=== PATIENT | male | born 1940 | race Caucasian/White ===

== ENCOUNTER 2018-10-22 14:21 | Emergency (ER) | payer MEDICARE, BC, SELFPAY ==
[2018-10-22] VITALS (48 sets, daily range): BP systolic 126–173; BP diastolic 51–112; PULSE 59–75; RESP 12–25; TEMP 36.7; O2SAT 91–97
--- NOTE | 2018-10-22 14:34 | DI.CT_ITS ---
SYMPTOMS/DIAGNOSIS: LEFT-SIDED FACIAL DROOP, ? CEREBROVASCULAR ACCIDENT CRANIAL CT: Noncontrast cranial CT was performed. There is a right cerebral mass involving the frontoparietal region with marked compression of the right lateral ventricle and midline shift to the left by approximately 1 cm. There appears to be significant edema surrounding a more central area of abnormal attenuation. Findings as described may represent primary or metastatic tumor; abscess not excluded. Infarct unlikely with this degree of mass effect. Orbital and temporal bone structures appear intact. No calvarial abnormality seen. Visualized paranasal sinuses and mastoid air cells are clear. 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 Additional evaluation with MRI recommended.
--- NOTE | 2018-10-22 14:34 | DI.RAD_ITS ---
SYMPTOMS/DIAGNOSIS: LEFT-SIDED FACIAL DROOP, ? CEREBROVASCULAR ACCIDENT PA AND LATERAL CHEST: The heart is not enlarged. Lungs are predominantly clear. There is a question of mediastinal contour abnormality superiorly on the right, which does not appear to have been present on previous chest film of 05/18/2010. This may represent vascular prominence, but the possibility of a mass should be raised with the patient's smoking history. Additional evaluation with chest CT recommended.
--- NOTE | 2018-10-22 14:37 | ED.GENADUL_ITS ---
Discharge Plan Disposition Patient Disposition: [facility] Condition: Stable Discharge Details Chief Complaint: CVA/TIA Clinical Impression: Brain mass, Altered mental status, Abnormal coordination Primary Care Provider: Riaz Penaloza ED Provider: Wong Frederick Home Meds and New Rx's Prescriptions: No Action cilostazol 100 mg tablet 100 mg PO BID RF: 0 nicotine (polacrilex) 4 mg gum 4 mg BC Q2H RF: 0 omeprazole 40 mg capsule,delayed release(DR/EC) 40 mg PO DAILY PRN RF: 0 aspirin 81 mg tablet,chewable 81 mg PO DAILY RF: 0 Metamucil [place] powder 1 tbs PO DAILY PRN RF: 0 lisinopril-hydrochlorothiazide 10-12.5 mg tablet 1 tab PO DAILY Qty: 90 RF: 3 Discharge Data Discharge Date/Time-TO BE ENTERED AT DEPARTURE: 10/22/18 19:20 Discharge Physician: Kathleen Zamorano Medical Decision Making <Kathleen Zamorano DO - Last Filed: 10/23/18 17:40> 78-year-old male with history of hypertension and peripheral arterial disease who presents with difficulty eating, slurred speech, difficulty with coordination and standing, and fatigue over the past 2 weeks, worse over the p ast few days. Family noticed a left facial droop since patient choked on gum 2 hours ago. Blood pressure mildly hypertensive. Oxygen saturation 94% on room air. Patient is noted to have a left facial droop and left arm pronator drift. No signs of airway compromise. Differential diagnosis includes acute CVA, mass, CA, electrolyte abnormality, infection. Will send for stat CT head, check screening labs, chest x-ray EKG notes a rate of 71 and sinus with no acute ST findings. 1455 --discussed with radiology -patient has a large right-sided brain mass which appears more likely consistent with a metastatic lesion rather than a primary tumor. Chest x-ray notes a questionable right apex prominence. As patient is a smoker, will send for CT chest to rule out lung CA once labs available. Also has a history of a skin cancer, but patient and family are unsure of the diagnosis of whether this is melanoma. Will call [facility] for transfer. 1550 --labs reviewed and unremarkable. 1630 --still awaiting callback from [facility]. Multiple calls placed. They are awaiting the images being re-sent and will review them and call back. Case endorsed to Dr. Frederick to f/u with [facility]. Medical Records Medical records reviewed: Yes I reviewed the patient's medical records. Imaging Data Radiologic Study: Radiologist's impression: CRANIAL CT: Noncontrast cranial CT was performed. There is a right cerebral mass involving the frontoparietal region with marked compression of the right lateral ventricle and midline shift to the left by approximately 1 cm. There appears to be significant edema surrounding a more central area of abnormal attenuation. Findings as described may represent primary or metastatic tumor; abscess not excluded. Infarct unlikely with this degree of mass effect. Orbital and temporal bone structures appear intact. No calvarial abnormality seen. Visualized paranasal sinuses and mastoid air cells are clear. 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 Additional evaluation with MRI recommended. Radiologic Study #2: Radiologist's impression: PA AND LATERAL CHEST: The heart is not enlarged. Lungs are predominantly clear. There is a question of mediastinal contour abnormality superiorly on the right, which does not appear to have been present on previous chest film of 05/18/2010. This may represent vascular prominence, but the possibility of a mass should be raised with the patient's smoking history. Additional evaluation with chest CT recommended. Lab Data Lab results reviewed: Yes I reviewed the patient's lab results. Laboratory Tests Range/Units 10/22/18 10/22/18 10/22/18 15:00 15:00 15:00 WBC (4.4-10.8) k/cumm 7.91 RBC (4.50-6.00) m/cumm 4.69 Hgb (13.5-17.5) g/dL 15.3 Hct (40.0-50.0) % 44.1 MCV (80-95) fL 94.0 MCH (27.0-33.0) pg 32.6 MCHC (32.0-36.0) g/dL 34.7 RDW (11.8-14.1) % 12.9 Plt Count (130-400) x1000/uL 237 MPV (8.0-11.0) fL 8.8 Immature Gran % 0.3 Neutrophils % 73.5 Lymphocytes % 17.6 Monocytes % 6.8 Eosinophils % 1.3 Basophils % 0.5 Absolute Neutrophils (1.2-6.7) k/cumm 5.82 Absolute Lymphocytes (1.2-3.4) k/cumm 1.39 Absolute Monocytes (0.11-0.7) k/cumm 0.54 Absolute Eosinophils (0.0-0.7) k/cumm 0.10 Absolute Basophils (0.0-0.2) k/cumm 0.04 PT (9.3-11.0) sec 9.4 INR (0.9-1.1) 0.9 APTT (21.0-31.4) sec 22.5 Sodium (136-145) mmol/L 139 Potassium (3.5-5.1) mmol/L 3.9 Chloride (98-107) mmol/L 105 Carbon Dioxide (21.0-32.0) mmol/L 24.1 Anion Gap (3-11) mmol/L 9.9 BUN (7-18) mg/dL 17 Creatinine (0.70-1.30) mg/dL 0.72 Estimated GFR/1.73 m2 (mL/min/1.73m2) >= 60.00 Glucose (70-100) mg/dL 88 Calcium (8.5-10.1) mg/dL 8.5 Magnesium (1.8-2.4) mg/dL 2.0 Total Bilirubin (0.2-1.0) mg/dL 0.5 AST (15-37) U/L 10 L ALT (12-78) U/L 20 Alkaline Phosphatase (46-116) U/L 87 Troponin I (0.00-0.06) ng/mL < 0.02 Total Protein (6.4-8.2) g/dL 6.5 Albumin (3.4-5.0) g/dL 3.4 ECG Data Attestation: I personally reviewed and interpreted this ECG (s) as follows: Interpretation: rate of 71, sinus, no acute ST elevation or depression, QTc 406. QRS 93. <Wong Frederick DO - Last Filed: 10/22/18 18:19> 6:17 PM The case has been signed out to me by my colleague Dr. Zamorano pending callback from [facility]. We have received call back, I have discussed the case with neurology Dr. Desai, and neurosurgery Dr. Amaro, they agree with our current plan of having given Decadron, they do not recommend any antiepileptics at this time. They also recommend transfer to [facility] for further evaluation and biopsy. The patient continues to remain hemodynamically stable here in the ED. He shows no signs of significant airway compromise. Patient will be transferred via [facility] to [facility]. I have extensively reviewed the treatment plan with the patient. I have addressed all patient concerns at this time. I have also discussed the plan with the admitting physician and they agree with the current assessment and plan and have agreed to assume responsibility for the patient. All parties demonstrate verbal understanding and agreement with our assessment and plan at this time. Of note CT chest has returned and is negative for any acute process or malignancy. At time of transfer the patient was reassessed and continued to demonstrate current medical stability. No signs of acute respiratory distress requiring intubation, hemodynamic instability requiring pressor support, or rapidly declining mental status. The patient is stable for transport. Patient Name: DELMAR ZAMORA AUnit #: [id number]: ER Ordering Provider: : REG ER Primary Care Provider: Riaz Penaloza Date of Exam: 10/22/18Sex: M : 1Age: 78 Exam(s) EXAM: CT Chest With Contrast EXAM DATE/TIME: 10/22/2018 3:55 PM CLINICAL HISTORY: 78 years old, male; Signs and symptoms; Other: Possible brain mets, assess for lung cancer TECHNIQUE: Imaging protocol: Axial computed tomography images of the chest with intravenous contrast. Coronal and sagittal reformatted images were created and reviewed. Radiation optimization: All CT scans at this facility use at least one of these dose optimization techniques: automated exposure control; mA and/or kV adjustment per patient size (includes targeted exams where dose is matched to clinical indication); or iterative reconstruction. Contrast material: OMNIPAQUE 350; Contrast volume: 100 ml; Contrast route: IV; COMPARISON: CTA THORAX 05/16/2017 9:02 AM FINDINGS: Lungs: There is mild scarring at the dependent lung bases. Pleural space: Normal. No pneumothorax. No pleural effusion. Heart: Normal. No cardiomegaly. No pericardial effusion. Aorta: There is moderate atherosclerosis of the thoracic aorta. Lymph nodes: Unremarkable. No enlarged lymph nodes. Bones/joints: There is moderate spondylosis of the mid and lower thoracic spine. Soft tissues: Unremarkable. IMPRESSION: Chronic changes with no evidence of a lung malignancy. Dictated and Authenticated by: John Paul Hawley MD. Ordering:AUGIE Wang MD HPI <Kathleen Zamorano, DO - Last Filed: 10/23/18 17:40> General Mode of arrival: ambulatory . Date/Time Provider Initiated Documentation: 10/22/18 14:22 . Limitations to Documentation: no limitations . Information obtained by: patient . HPI Narrative: Patient is a 78-year-old male with history of hypertension and PAD who presents to the ED w/ a c/o difficulty with standing, speech, eating and not acting like himself for the past few weeks, worse over the past week. states 2 hours ago patient choked on a piece of Nicorette gum and appears all the symptoms are now worse since then and now has a left-sided facial droop. states that patient's speech has been slurred for a few weeks, but this has been worse over the past 2 days and that food falls out of his mouth when he eats. She states he has been more disoriented over the past 3 days. She denies any known fever. She states he has been significantly fatigued for weeks but has not complained of any headache or chest pain. Denies any recent hospital admission. Related Data Home Medications Medication Instructions Recorded Confirmed aspirin 81 mg chewable tablet 81 mg PO DAILY 02/23/18 10/22/18 cilostazol 100 mg tablet 100 mg PO BID 02/23/18 10/22/18 nicotine (polacrilex) 4 mg gum 4 mg BC Q2H 02/23/18 10/22/18 omeprazole 40 mg capsule,delayed 40 mg PO DAILY PRN cap 02/23/18 10/22/18 release psyllium seed (sugar) oral powder 1 tbs PO DAILY PRN gm 02/23/18 05/23/18 lisinopril 10 1 tab PO DAILY #90 tab 09/10/18 10/22/18 mg-hydrochlorothiazide 12.5 mg tablet Previous Rx's Medication Instructions Recorded lisinopril 10 1 tab PO DAILY #90 tab 09/10/18 mg-hydrochlorothiazide 12.5 mg tablet Allergies Allergy/AdvReac Type Severity Reaction Status Date / Time venom-honey bee Allergy Severe Swelling Unverified 05/23/18 11:24 [bee venom (honey bee)] Penicillins Allergy Unverified 05/23/18 11:24 General Stated Complaint: CVA/TIA DEMI: 2 Review of Systems <Kathleen Zamorano DO - Last Filed: 10/23/18 17:40> Review of Systems All systems reviewed & are unremarkable except as noted in HPI and below Constitutional Reports as per HPI, Denies chills, Reports fatigue, Denies fever(s) and Reports lethargy Eyes Denies blurry vision ENT Denies dizziness, Denies sore throat and Denies throat swelling Cardiovascular Denies chest pain and Denies dyspnea Respiratory Denies cough and Denies dyspnea Gastrointestinal Denies abdominal pain, Denies diarrhea and Denies vomiting Genitourinary Denies hematuria and Denies dysuria Musculoskeletal Denies back pain and Denies numbness Integumentary/Breasts Denies lesions and Denies rash Neurologic Reports abnormal speech, Denies dizziness, Reports lack of coordination, Denies focal weakness and Denies numbness Endocrine Reports fatigue Allergic/Immunologic Denies throat swelling PFSH <Kathleen Zamorano DO - Last Filed: 10/23/18 17:40> Medical History Peripheral arterial occlusive disease (Acute) HTN (hypertension) (Chronic) Surgical History H/O vasectomy (Acute) History of surgical removal of pilonidal cyst (Acute) S/P skin cancer resection (Acute) Colonoscopy - IV Sedation Family History Mother No problems noted. Father No problems noted. Sister No problems noted. Brother No problems noted. Brother No problems noted. Brother No problems noted. Son No problems noted. Son No problems noted. Son No problems noted. Social History Smoking/Tobacco Use Status: Current every day Tobacco Type: cigarettes Second Hand Exposure: Yes Alcohol Intake: current Alcohol Intake frequency: holidays/special occasions only Alcohol type: hard liquor Drug use: Never Substance use type: does not use Details: Pt is not only smoking a lot of cigeretts but is chewing nicodine gum. current occupation: [employer] Pets and animals: Yes Pets and animals: cat(s) Frequency: does not exercise Macrina/Anabaptism: Adventist Special macrina needs: No Do you feel safe at home: Yes Do you feel safe in your relationship?: Yes Exam <Kathleen Zamorano DO - Last Filed: 10/23/18 17:40> Const General: cooperative and no acute distress HENAZ Head: normal to inspection Face and sinus: normal facial exam Eyes General: appearance normal, both eyes and all related structures Pupils: PERRL EOM: EOM intact bilaterally Neck Neck: normal visual inspection and No submandibular swelling Lymphatic: no lymphadenopathy noted Chest Chest: normal inspection of the chest and no tenderness Resp Effort & Inspection: normal respiratory effort and able to speak in complete sentences Auscultation: clear to auscultation bilaterally Cardio Rate: regular rate Rhythm: regular rhythm GI Inspection: normal to inspection Palpation: soft, not firm, not rigid and nontender Auscultation: normal bowel sounds Skin General skin exam: no rashes or lesions noted Neuro General: alert, awake and oriented x3 Cranial Nerves: other (L facial droop) Cognition: normal cognition Speech: other (stuttering speech) Motor: pronator drift pronator drift of left upper extremity and other (otherwise MS 5/5 b/l UE/LE) Sensory Exam: no sensory deficits noted Extrem General: normal to inspection, full ROM and no edema Psych Appearance: grossly normal Mental Status: mental status grossly normal Speech and Movement: speech and movement normal Affect: normal affect Course <DO Katerina Valenzuela Last Filed: 10/23/18 17:40> Vital Signs Temperature 98.1 F 10/22/18 14:27 Pulse 72 10/22/18 14:27 Respiratory Rate 20 10/22/18 14:27 Blood Pressure 159/75 H 10/22/18 14:27 Pulse Oximetry 93 L 10/22/18 14:27 Temperature 98.1 F 10/22/18 14:27 Temperature Source Skin 10/22/18 14:27 Pulse 72 10/22/18 14:27 Respiratory Rate 20 10/22/18 14:27 Blood Pressure 159/75 H 10/22/18 14:27 Blood Pressure Position Sitting 10/22/18 14:27 Pulse Oximetry 93 L 10/22/18 14:27 Oxygen Delivery Method Room Air 10/22/18 14:27 Oxygen Flow Rate 0 10/22/18 14:27 Sign Out <Kathleen Zamorano DO - Last Filed: 10/23/18 17:40> Sign Out Data: Sign Out Comment: follow up with [facility] regarding plan and final disposition. Last updated by Kathleen Zamorano DO at 10/22/18 16:40
[2018-10-22 15:10] LABS: Abs Immature Grans 0.02 k/cumm (0.0-0.09); Absolute Basophil Count 0.04 k/cumm (0.0-0.2); Absolute Lymphocyte Count 1.39 k/cumm (1.2-3.4); Absolute Monocyte Count 0.54 k/cumm (0.11-0.7); Absolute Neutrophil Count 5.82 k/cumm (1.2-6.7); Basophils % 0.5; Eosinophils % 1.3; HCT 44.1 % (40.0-50.0); HGB 15.3 g/dL (13.5-17.5); Immature Grans % 0.3; Lymphocytes % 17.6; Mean Corp. HGB Concentration 34.7 g/dL (32.0-36.0); Mean Corpuscular Hemoglobin 32.6 pg (27.0-33.0); Mean Platelet Volume 8.8 fL (8.0-11.0); Monocytes % 6.8; Neutrophils % 73.5; Platelet Count 237 x1000/uL (130-400); RBC 4.69 m/cumm (4.50-6.00); RBC Distribution Width 12.9 % (11.8-14.1); White Blood Cell Count 7.91 k/cumm (4.4-10.8)
[2018-10-22 15:26] LABS: INR 0.9 (0.9-1.1); PTT Activated 22.5 sec (21.0-31.4); Prothrombin Time 9.4 sec (9.3-11.0)
[2018-10-22 15:29] LABS: ALT 20 U/L (12-78); AST 10 U/L (15-37); Albumin 3.4 g/dL (3.4-5.0); Alkaline Phosphatase 87 U/L (46-116); Anion Gap 9.9 mmol/L (3-11); BUN 17 mg/dL (7-18); Bilirubin, Total 0.5 mg/dL (0.2-1.0); CO2 24.1 mmol/L (21.0-32.0); CREATININE 0.72 mg/dL (0.70-1.30); Calcium 8.5 mg/dL (8.5-10.1); Chloride 105 mmol/L (98-107); Glucose 88 mg/dL (70-100); Potassium 3.9 mmol/L (3.5-5.1); Sodium 139 mmol/L (136-145); Total Protein 6.5 g/dL (6.4-8.2)
[2018-10-22 15:31] LABS: Troponin I < 0.02 ng/mL (0.00-0.06)
[2018-10-22 15:50] LABS: Bilirubin Negative (Negative); Blood Trace-intact (Negative); Clarity Clear; Glucose Negative (Negative); Ketones Negative (Negative); Leukocyte Esterase Negative (Negative); Nitrite Negative (Negative); Specific Gravity 1.025 (1.005-1.025); Urobilinogen 0.2 EU/dL (Up TO 0.2)
--- NOTE | 2018-10-22 15:54 | DI.CT_ITS ---
SYMPTOM/DIAGNOSIS: POSSIBLE BRAIN METS, ASSESS FOR LUNG CA CHEST CT: CT scan of the chest was performed following the uneventful administration of intravenous contrast material. The visualized thyroid gland is unremarkable. The thoracic aorta shows atherosclerosis. No aneurysmal dilatation or dissection is seen. Heart size is within normal limits. Coronary artery calcifications are present. No significant pericardial effusion is seen. There is no mediastinal mass or adenopathy present. There is no evidence of hilar or axillary adenopathy. No pleural or pericardial effusion is seen. No pulmonary masses or nodules are appreciated. The tracheobronchial tree is unremarkable. A few small bulla are seen in the lungs. Dependent atelectatic changes or scarring are seen in the dependent portions of the lung bases. There are degenerative changes seen in the spine. Upper abdominal images show no acute abnormality. There is patient motion artifact which does compromise the examination. IMPRESSION: 1. No acute pulmonary process. 2. No evidence of a thoracic mass or adenopathy.
[2018-10-22 16:04] LABS: Bacteria Negative HPF (Negative); C & S Indicated? No; Casts Negative LPF (Negative); Crystals Negative HPF (Negative); Epithelial Cells Negative HPF (Negative); Mucus Negative (Negative); Other Cells Negative (Negative); WBC 0-2 HPF (0-5)
[2018-10-22] MEDS: Omnipaque 350 MG/ML 100 ML BTL IJ (16:34)
[2018-10-22] MEDS: Normal Saline Flush 10 ML SYR IVP (16:35)
--- NOTE | 2018-10-22 16:51 | DI.VRAD_ITS ---
EXAM: CT Chest With Contrast EXAM DATE/TIME: 10/22/2018 3:55 PM CLINICAL HISTORY: 78 years old, male; Signs and symptoms; Other: Possible brain mets, assess for lung cancer TECHNIQUE: Imaging protocol: Axial computed tomography images of the chest with intravenous contrast. Coronal and sagittal reformatted images were created and reviewed. Radiation optimization: All CT scans at this facility use at least one of these dose optimization techniques: automated exposure control; mA and/or kV adjustment per patient size (includes targeted exams where dose is matched to clinical indication); or iterative reconstruction. Contrast material: OMNIPAQUE 350; Contrast volume: 100 ml; Contrast route: IV; COMPARISON: CTA THORAX 05/16/2017 9:02 AM FINDINGS: Lungs: There is mild scarring at the dependent lung bases. Pleural space: Normal. No pneumothorax. No pleural effusion. Heart: Normal. No cardiomegaly. No pericardial effusion. Aorta: There is moderate atherosclerosis of the thoracic aorta. Lymph nodes: Unremarkable. No enlarged lymph nodes. Bones/joints: There is moderate spondylosis of the mid and lower thoracic spine. Soft tissues: Unremarkable. IMPRESSION: Chronic changes with no evidence of a lung malignancy. Dictated and Authenticated by: John Paul Hawley MD. Ordering:AUGIE Wang MD
[2018-10-22] MEDS: Dexamethasone 10 MG/ML VIAL IVP (18:35)
== END 2018-10-22 19:20 | disposition short-term general hospital (02) ==
PROVIDERS: Physician Assistant; Emergency Provider Student in an Organized Health Care Education/Training Program; PCP Family Medicine
DX: G93.9 Disorder of brain, unspecified (principal); R27.9 Unspecified lack of coordination; R41.82 Altered mental status, unspecified; I10 Essential (primary) hypertension; F17.210 Nicotine dependence, cigarettes, uncomplicated; I70.209 Unspecified atherosclerosis of native arteries of extremities, unspecified extremity
CPT/HCPCS: 36415; 80053; 93005; 99285; 70450; 71046; 71260; 81003; 81015; 83735; 84484; 85025; 85610; 85730; 93010; J1100; J3490

== ENCOUNTER 2018-11-23 13:13 | Emergency (ER) | payer MEDICARE, BC, SELFPAY ==
[2018-11-23] VITALS (36 sets, daily range): BP systolic 131–158; BP diastolic 61–76; PULSE 68–102; RESP 12–31; TEMP 37.1; O2SAT 91–96
--- NOTE | 2018-11-23 13:35 | W.ED.GENAD ---
Discharge Plan Disposition Patient Disposition: HOME Condition: Improving Discharge Details Chief Complaint: GenMedical Clinical Impression: Headache, Nausea & vomiting, S/P craniotomy Primary Care Provider: Riaz Penaloza ED Provider: Kathleen Zamorano Home Meds and New Rx's Prescriptions: New dexamethasone [Decadron] 0.5 mg tablet See Rx Instructions .ROUTE .COMPLEX Qty: 14 RF: 0 prochlorperazine maleate [Compazine] 10 mg tablet 10 mg PO Q8H PRN (Reason: nausea and vomiting) Qty: 6 RF: 0 Continued cilostazol 100 mg tablet 100 mg PO BID RF: 0 omeprazole 40 mg capsule,delayed release(DR/EC) 40 mg PO DAILY PRN RF: 0 aspirin 81 mg tablet,chewable 81 mg PO DAILY RF: 0 Metamucil [place] powder 1 tbs PO DAILY PRN RF: 0 levetiracetam [Keppra] 500 mg Tablet 500 mg PO BID RF: 0 lisinopril-hydrochlorothiazide [Zestoretic] 10-12.5 mg Tablet 1 tab PO DAILY RF: 0 Discharge Instructions Instructions: Acute Nausea and Vomiting (ED), General Headache (ED) Additional Instructions: Take Decadron until finished. Drink plenty of fluids. Take the Compazine as needed and directed for any nausea or vomiting. Take Tylenol as needed and directed for pain. Continue physical therapy as directed. Follow-up with your scheduled appointment with neurosurgery next Monday. Return immediately to the emergency department with any worsening or concerning symptoms. Discharge Data Discharge Date/Time-TO BE ENTERED AT DEPARTURE: 11/23/18 17:27 Discharge Physician: Kathleen Zamorano Medical Decision Making <Kathleen Zamorano DO - Last Filed: 11/25/18 08:22> 78-year-old male who is almost 1 month status post craniotomy with resection of glioblastoma who presents [facility] for nausea, vomiting and headache since this morning. Patient had a craniotomy with resection on 10/25 at [facility]. Vitals within normal limits. Patient appears nontoxic. Patient appears generally slowed and lethargic which appears similar to his baseline when I saw him one month ago. No obvious focal deficits. Sent for stat CT head which notes questionable midline shift, versus questionable fluid beneath craniotomy which may be resolving postsurgical changes. No obvious bleed. Images pushed to [facility]. 1500 --due to brief departure from the emergency department, Dr. Esparza was covering this patient and spoke with neurosurgery. Please see his notes regarding this conversation and plan. Neurosurgery reviewed the CT head and notes that the edema is improved. They recommend fluids, antiemetics and to restart Decadron. Dose of 2 mg Decadron given here. If patient cleared and able to ambulate with PT, okay for discharge back to rehab. Labs reviewed and unremarkable. Chest x-ray negative. 1615 --patient able to ambulate with PT and to and from the bathroom with minimal assistance and feels good to go back to rehab. Patient admits to improvement in headache. No further nausea or vomiting. Prescription for Decadron and Compazine given. There is an interaction with Zofran and cilostazol with risk of QT prolongation. Patient instructed to follow-up with his scheduled appointment with neurosurgery on Monday and to return here with any worsening or new concerning symptoms. Medical Records Medical records reviewed: Yes I reviewed the patient's medical records. Imaging Data Radiologic Study: Attestation: I personally reviewed and interpreted this imaging study as follows: Radiologist's impression: CT BRAIN: Noncontrast. Comparison is 10/22/18. Since the prior examination, there has been resection of a right glioblastoma. There are persistent areas of decreased attenuation involving the right frontal and right parietal lobe. This may represent residual tumor and/or post surgical change. There has been improvement in the leftward midline shift with a persistent shift of approximately 5 mm. The patient is status post right frontoparietal craniotomy. There is a subdural fluid collection beneath the calvarium in this region. This may be post surgical in nature. It appears to be mostly low density and measures 9 mm in diameter. There is effacement of the adjacent sulci noted. The ventricles are intact. The basilar cisterns are patent. The visualized paranasal sinuses are clear. The mastoid air cells are well pneumatized. IMPRESSION: 1. Status post resection of glioblastoma. 2. Residual hypodense signal seen within the right frontal and parietal lobes. This may represent residual tumor vs post surgical change. 3. Interval improvement in the leftward shift of the midline which now measures 5 mm. 4. Status post right frontal and parietal craniotomy. Fluid collection beneath the craniotomy site. This may be post surgical. It measures approximately 9 mm in thickness and does cause some effacement of the adjacent sulci. 5. Comparison may be made with any post surgical CT examinations and an addendum will be issued at that time. The findings were discussed with the emergency department on the date of the examination. Radiologic Study #2: Radiologist's impression: CHEST X-RAY, FRONTAL AND LATERAL VIEWS: Comparison is 10/22/18. The heart size and pulmonary vasculature are within normal limits. No focal consolidating infiltrates, effusions or pneumothoraces are identified. Degenerative changes are seen in the spine. IMPRESSION: No acute pulmonary process. Lab Data Lab results reviewed: Yes I reviewed the patient's lab results. Laboratory Tests Range/Units 11/23/18 11/23/18 11/23/18 13:35 13:35 13:35 WBC (4.4-10.8) k/cumm 7.16 RBC (4.50-6.00) m/cumm 3.95 L Hgb (13.5-17.5) g/dL 12.6 L Hct (40.0-50.0) % 37.7 L MCV (80-95) fL 95.4 H MCH (27.0-33.0) pg 31.9 MCHC (32.0-36.0) g/dL 33.4 RDW (11.8-14.1) % 13.0 Plt Count (130-400) x1000/uL 257 MPV (8.0-11.0) fL 9.0 Immature Gran % 0.7 Neutrophils % 84.1 Lymphocytes % 9.6 Monocytes % 5.4 Eosinophils % 0.1 Basophils % 0.1 Absolute Neutrophils (1.2-6.7) k/cumm 6.01 Absolute Lymphocytes (1.2-3.4) k/cumm 0.69 L Absolute Monocytes (0.11-0.7) k/cumm 0.39 Absolute Eosinophils (0.0-0.7) k/cumm 0.01 Absolute Basophils (0.0-0.2) k/cumm 0.01 PT (9.3-11.0) sec 10.1 INR (0.9-1.1) 1.0 APTT (21.0-31.4) sec 24.5 Sodium (136-145) mmol/L 139 Potassium (3.5-5.1) mmol/L 3.4 L Chloride (98-107) mmol/L 100 Carbon Dioxide (21.0-32.0) mmol/L 27.1 Anion Gap (3-11) mmol/L 11.9 H BUN (7-18) mg/dL 12 Creatinine (0.70-1.30) mg/dL 0.77 Estimated GFR/1.73 m2 (mL/min/1.73m2) >= 60.00 Glucose (70-100) mg/dL 197 H Calcium (8.5-10.1) mg/dL 8.7 Magnesium (1.8-2.4) mg/dL 1.7 L Total Bilirubin (0.2-1.0) mg/dL 0.4 AST (15-37) U/L 8 L ALT (12-78) U/L 18 Alkaline Phosphatase (46-116) U/L 142 H Troponin I (0.00-0.06) ng/mL < 0.02 Total Protein (6.4-8.2) g/dL 6.7 Albumin (3.4-5.0) g/dL 2.5 L ECG Data Attestation: I personally reviewed and interpreted this ECG (s) as follows: Interpretation: rate of 82, sinus, no acute ST elevation or depression. QTc 434. QRS 96. <Jim Esparza MD - Last Filed: 11/26/18 08:13> I received call from neurosurgery at [facility] and discussed case on behalf of Dr. Zamorano. I discussed presentation and ED course as documented by Dr. Zamorano and according to patient's nurse. CT head sent to [facility] for review. Neurosx reviewed CT head and compared to prior CT and notes edema improved and no concerning changes. They recommend giving antiemetics, IV hydration, and pain control. They recommend restarting decadron 2mg BID x 2 days, then 1mg BID x 2 days, then 0.5 mg BID x 2 days. The recommend PT eval to assist in transition back to rehab facility. Patient has followup appointment next week and he recommended maintaining this appointment. HPI <Kathleen Zamorano DO - Last Filed: 11/25/18 08:22> General Mode of arrival: ambulatory. Date/Time Provider Initiated Documentation: 11/23/18 13:20. Limitations to Documentation: no limitations. Information obtained by: patient. HPI Narrative: Patient is a 78-year-old male diagnosed with a glioblastoma last month status post craniotomy with resection on 10/25/2018 who [facility] for nausea, vomiting and headache since this morning. Patient states since 7 AM he has had right-sided headache. States the headache is currently 5/10. He states he has vomited approximately 3-4 times since this morning. He states he spent 24 days at [facility] post his craniotomy and has been at the [facility] rehab for the past 9 days. He states he had been doing very well with physical therapy in terms of his overall level of function, mobility and ambulation. Related Data Home Medications Medication Instructions Recorded Confirmed aspirin 81 mg chewable tablet 81 mg PO DAILY 02/23/18 11/23/18 cilostazol 100 mg tablet 100 mg PO BID 02/23/18 11/23/18 omeprazole 40 mg capsule,delayed 40 mg PO DAILY PRN cap 02/23/18 11/23/18 release psyllium seed (sugar) oral powder 1 tbs PO DAILY PRN gm 02/23/18 11/23/18 dexamethasone [Decadron] See Rx Instructions .ROUTE 11/23/18 .COMPLEX #14 tab levetiracetam [Keppra] 500 mg PO BID 11/23/18 11/23/18 lisinopril-hydrochlorothiazide 1 tab PO DAILY 11/23/18 11/23/18 [Zestoretic] prochlorperazine maleate 10 mg PO Q8H PRN #6 tab 11/23/18 [Compazine] Previous Rx's Medication Instructions Recorded dexamethasone [Decadron] See Rx Instructions .ROUTE 11/23/18 .COMPLEX #14 tab prochlorperazine maleate 10 mg PO Q8H PRN #6 tab 11/23/18 [Compazine] Allergies Allergy/AdvReac Type Severity Reaction Status Date / Time venom-honey bee Allergy Severe Swelling Unverified 11/23/18 13:29 [bee venom (honey bee)] Penicillins Allergy Unverified 11/23/18 13:29 General Stated Complaint: GenMedical DEMI: 3 Review of Systems <Kathleen J Bugbee, DO - Last Filed: 11/25/18 08:22> Review of Systems All systems reviewed & are unremarkable except as noted in HPI and below Constitutional Reports as per HPI, Denies chills, Denies fever(s) and Reports headache(s) Eyes Denies blurry vision ENT Denies dizziness, Reports headache(s), Denies sore throat and Denies throat swelling Cardiovascular Denies chest pain and Denies dyspnea Respiratory Denies cough and Denies dyspnea Gastrointestinal Denies abdominal pain, Denies diarrhea and Reports vomiting Genitourinary Denies hematuria and Denies dysuria Musculoskeletal Denies back pain and Denies numbness Integumentary/Breasts Denies lesions and Denies rash Neurologic Denies dizziness, Reports headache(s), Denies focal weakness and Denies numbness Allergic/Immunologic Denies throat swelling PFSH <Kathleen Zamorano DO - Last Filed: 11/25/18 08:22> Medical History Peripheral arterial occlusive disease (Acute) HTN (hypertension) (Chronic) Surgical History H/O vasectomy (Acute) History of surgical removal of pilonidal cyst (Acute) S/P skin cancer resection (Acute) Colonoscopy - IV Sedation Social History Smoking/Tobacco Use Status: Current every day Tobacco Type: cigarettes Second Hand Exposure: Yes Alcohol Intake: current Alcohol Intake frequency: holidays/special occasions only Alcohol type: hard liquor Drug use: Never Substance use type: does not use Details: Pt is not only smoking a lot of cigeretts but is chewing nicodine gum. current occupation: [employer] Pets and animals: Yes Pets and animals: cat(s) Frequency: does not exercise Macrina/Oriental Orthodox: Sabianism Special macrina needs: No Do you feel safe at home: Yes Do you feel safe in your relationship?: Yes Exam <Kathleen Zamorano DO - Last Filed: 11/25/18 08:22> Const General: cooperative and healthy appearing Orientation: alert and awake HENIL Head: normal to inspection Ears: hearing grossly normal bilaterally, external ears normal and TM's normal bilaterally General nose exam: external nose normal Face and sinus: normal facial exam Mouth: oral mucosae normal Teeth and gingiva: dentition normal Throat: posterior oropharynx normal Eyes General: appearance normal, both eyes and all related structures Eyelids: eyelids normal Pupils: PERRL EOM: EOM intact bilaterally Neck Neck: normal visual inspection Lymphatic: no lymphadenopathy noted Chest Chest: normal inspection of the chest Resp Effort & Inspection: normal respiratory effort and able to speak in complete sentences Auscultation: clear to auscultation bilaterally Cardio Rate: regular rate Rhythm: regular rhythm GI Inspection: normal to inspection Palpation: soft, not firm, no guarding, no hepatosplenomegaly, no masses and nontender Auscultation: normal bowel sounds Back/Spine/Pelvis Back: no CVA tenderness Skin General skin exam: no rashes or lesions noted Neuro General: alert, awake, oriented x3 and other Cranial Nerves: CN's II-XI intact bilaterally Cognition: normal cognition Speech: abnormal speech (slowed, which appears baseline) Motor: muscle tone normal throughout and strength 5/5 throughout Sensory Exam: no sensory deficits noted Extrem General: normal to inspection, full ROM, normal capillary refill and edema Laterality: bilateral (2+ pitting) Psych Appearance: grossly normal Mental Status: mental status grossly normal Speech and Movement: speech and movement normal Affect: normal affect Thought Process: normal Course <Kathleen Zamorano, DO - Last Filed: 11/25/18 08:22> Vital Signs Temperature 98.8 F 11/23/18 13:23 Pulse 78 11/23/18 13:23 Respiratory Rate 14 11/23/18 13:23 Blood Pressure 142/62 H 11/23/18 13:23 Pulse Oximetry 96 11/23/18 13:23 Temperature 98.8 F 11/23/18 13:23 Temperature Source Skin 11/23/18 13:23 Pulse 78 11/23/18 13:23 Respiratory Rate 14 11/23/18 13:23 Blood Pressure 142/62 H 11/23/18 13:23 Blood Pressure Position Sitting 11/23/18 13:23 Pulse Oximetry 96 11/23/18 13:23 Oxygen Delivery Method Room Air 11/23/18 13:23 Oxygen Flow Rate 0 11/23/18 13:23 Pain Level 2 11/23/18 13:23
--- NOTE | 2018-11-23 13:48 | DI.CT_ITS ---
SYMPTOMS/DIAGNOSIS: NAUSEA, HEADACHE, RECENT RESECTION OF GLIOBLASTOMA, ? ACUTE BLEED/MASS/SWELLING CT BRAIN: Noncontrast. Comparison is 10/22/18. Since the prior examination, there has been resection of a right glioblastoma. There are persistent areas of decreased attenuation involving the right frontal and right parietal lobe. This may represent residual tumor and/or post surgical change. There has been improvement in the leftward midline shift with a persistent shift of approximately 5 mm. The patient is status post right frontoparietal craniotomy. There is a subdural fluid collection beneath the calvarium in this region. This may be post surgical in nature. It appears to be mostly low density and measures 9 mm in diameter. There is effacement of the adjacent sulci noted. The ventricles are intact. The basilar cisterns are patent. The visualized paranasal sinuses are clear. The mastoid air cells are well pneumatized. IMPRESSION: 1. Status post resection of glioblastoma. 2. Residual hypodense signal seen within the right frontal and parietal lobes. This may represent residual tumor vs post surgical change. 3. Interval improvement in the leftward shift of the midline which now measures 5 mm. 4. Status post right frontal and parietal craniotomy. Fluid collection beneath the craniotomy site. This may be post surgical. It measures approximately 9 mm in thickness and does cause some effacement of the adjacent sulci. 5. Comparison may be made with any post surgical CT examinations and an addendum will be issued at that time. The findings were discussed with the emergency department on the date of the examination.
[2018-11-23] MEDS: Ondansetron 4 MG/2 ML VIAL IVP (14:13)
[2018-11-23 14:28] LABS: Abs Immature Grans 0.05 k/cumm (0.0-0.09); Absolute Basophil Count 0.01 k/cumm (0.0-0.2); Absolute Eosinophil Count 0.01 k/cumm (0.0-0.7); Absolute Lymphocyte Count 0.69 k/cumm (1.2-3.4); Absolute Monocyte Count 0.39 k/cumm (0.11-0.7); Absolute Neutrophil Count 6.01 k/cumm (1.2-6.7); Basophils % 0.1; Eosinophils % 0.1; HCT 37.7 % (40.0-50.0); HGB 12.6 g/dL (13.5-17.5); Immature Grans % 0.7; Lymphocytes % 9.6; Mean Corp. HGB Concentration 33.4 g/dL (32.0-36.0); Mean Corpuscular Hemoglobin 31.9 pg (27.0-33.0); Mean Corpuscular Volume 95.4 fL (80-95); Monocytes % 5.4; Neutrophils % 84.1; Platelet Count 257 x1000/uL (130-400); RBC 3.95 m/cumm (4.50-6.00); White Blood Cell Count 7.16 k/cumm (4.4-10.8)
[2018-11-23 14:42] LABS: ALT 18 U/L (12-78); AST 8 U/L (15-37); Albumin 2.5 g/dL (3.4-5.0); Alkaline Phosphatase 142 U/L (46-116); Anion Gap 11.9 mmol/L (3-11); BUN 12 mg/dL (7-18); Bilirubin, Total 0.4 mg/dL (0.2-1.0); CO2 27.1 mmol/L (21.0-32.0); CREATININE 0.77 mg/dL (0.70-1.30); Calcium 8.7 mg/dL (8.5-10.1); Chloride 100 mmol/L (98-107); Glucose 197 mg/dL (70-100); Magnesium 1.7 mg/dL (1.8-2.4); Potassium 3.4 mmol/L (3.5-5.1); Sodium 139 mmol/L (136-145); Total Protein 6.7 g/dL (6.4-8.2)
[2018-11-23 14:52] LABS: PTT Activated 24.5 sec (21.0-31.4); Prothrombin Time 10.1 sec (9.3-11.0)
--- NOTE | 2018-11-23 14:54 | DI.RAD_ITS ---
SYMPTOMS/DIAGNOSIS: BILATERAL LEG SWELLING, ? ACUTE DISEASE CHEST X-RAY, FRONTAL AND LATERAL VIEWS: Comparison is 10/22/18. The heart size and pulmonary vasculature are within normal limits. No focal consolidating infiltrates, effusions or pneumothoraces are identified. Degenerative changes are seen in the spine. IMPRESSION: No acute pulmonary process.
[2018-11-23 15:06] LABS: Troponin I < 0.02 ng/mL (0.00-0.06)
[2018-11-23] MEDS: Acetaminophen 325 MG TAB (15:20)
--- NOTE | 2018-11-23 15:37 | PT.INIE ---
Date of service: 11/23/18 Time of Service: 15:20 PT Notes Emergency Room Physical Therapy Evaluation Date: 11/23/18 Referring Doctor: Dr. Zamorano PT Orders: PT CONSULT: assess mobility Precautions: none Patient Profile/Admitting Diagnosis: Patient presented to ER today with nausea and vomiting. He is 1 month s/p craniotomy and resection of glioblastoma. He's been rehabilitating at [facility] since surgery, and PT consult was requested to assess patient's ability to transfer back to rehab facility. PMHX: glioblastoma Peripheral arterial occlusive disease (Acute) HTN (hypertension) (Chronic) Social History/Home Situation: Patient's is present at time of evaluation. Together they report that patient had been living independently at their home in [place] up until his surgery 4 weeks ago. Since surgery, he has been rehabilitating at [facility]. He is able to ambulate independently within his room, and utilizes a walker for ambulation in the halls with his . He was able to walk around the exterior of the building with PT yesterday, without assistive device. Equipment Owned/DME: Currently residing at [facility] with all equipment needs met Subjective: Patient states that he is feeling a bit better. He has not vomited in about an hour. He denies balance deficits or history of falls. States that he is confident he could walk. Objective: General Observation: Resting in bed with pulse oximeter on second digit of right hand, telemetry in place, blood pressure cuff to left upper extremity. Mental Status: A and O x3. Patient history is confirmed by his . Pain: Denies Vital Signs: Orthostatics: Supine: 144/73, heart rate 90 Sittin/72, heart rate 81 Standin/72, heart rate 87 ROM: Right Upper Extremity: WFL Left Upper Extremity: WFL Right Lower Extremity: WFL Left Lower Extremity: WFL Strength: Right Upper Extremity: Shoulder elbow and wrist motions are all 3/5 or greater Left Upper Extremity: Shoulder elbow and wrist motions are all 3/5 or greater Right Lower Extremity: Ankle dorsiflexion 3/5 or greater. Hamstrings 3/5 or greater. Functionally, patient is able to perform SLR, and demonstrates quad strength of 3/5 or greater in seated position. Left Lower Extremity: Ankle dorsiflexion 3/5 or greater. Hamstrings 3/5 or greater. Functionally, patient is able to perform SLR, and demonstrates quad strength of 3/5 or greater in seated position. Bed Mobility/Transfers: Supine?sit: Supervision Sit?supine: Supervision Sit?stand: Supervision Stand?sit: Supervision Gait: Patient was able to independently ambulate 3 feet in treatment room, without noted balance deficits. Distance was limited by length of lines. He was able to perform 90 degrees turns in both directions with good safety awareness and no signs of imbalance. Balance: Static Sitting: Normal Dynamic Sitting: Normal Static Standing: Good Dynamic Standing: Good Informed Consent/Education: Patient instructed in purpose of PT consult and plan of care. Assessment: Patient is a 78 year old male referred to physical therapy services from the emergency department, where he presented for management of nausea and vomiting. PT consult was requested to assess patient's mobility and ability to transition back to rehab facility where he has been rehabilitating since resection of his glioblastoma 1 month ago. Patient was able to safely demonstrate supervised bed mobility and transfers, and is safe for transition back [facility] once medically cleared. Patient is assessed as a Low 14815 complexity based on the following: History: 78-year-old male presenting to ER with nausea and vomiting. Patient is a resident of [facility], where he has been recuperating from resection of a glioblastoma performed last month. He has baseline mobility deficits, although during evaluation demonstrates sufficient mobility to allow for transition back to SNF Examination: Safe to return to SNF Presentation: Stable Decision Making: Low complexity Plan of Care/Treatment Plan: Patient seen for safety consultation only. No further PT intervention required in this setting. Recommend resuming PT intervention upon return to [facility] for continued progress towards established goals. DISCHARGE RECOMMENDATIONS: SNF TREATMENT CODE/TIME: 3:20-3:45 ([id number]) Ananya Britton, PT, DPT [facility]
--- NOTE | 2018-11-23 15:40 | IN_ITS ---
Date of service: 11/23/18 Time of Service: 15:20 PT Notes Emergency Room Physical Therapy Evaluation Date: 11/23/18 Referring Doctor: Dr. Zamorano PT Orders: PT CONSULT: assess mobility Precautions: none Patient Profile/Admitting Diagnosis: Patient presented to ER today with nausea and vomiting. He is 1 month s/p craniotomy and resection of glioblastoma. He's been rehabilitating at [facility] since surgery, and PT consult was requested to assess patient's ability to transfer back to rehab facility. PMHX: glioblastoma Peripheral arterial occlusive disease (Acute) HTN (hypertension) (Chronic) Social History/Home Situation: Patient's is present at time of evaluation. Together they report that patient had been living independently at their home in [place] up until his surgery 4 weeks ago. Since surgery, he has been re habilitating at [facility]. He is able to ambulate independently within his room, and utilizes a walker for ambulation in the halls with his . He was able to walk around the exterior of the building with PT yesterday, without assistive device. Equipment Owned/DME: Currently residing at [facility] with all equipment needs met Subjective: Patient states that he is feeling a bit better. He has not vomited in about an hour. He denies balance deficits or history of falls. States that he is confident he could walk. Objective: General Observation: Resting in bed with pulse oximeter on second digit of right hand, telemetry in place, blood pressure cuff to left upper extremity. Mental Status: A and O x3. Patient history is confirmed by his . Pain: Denies Vital Signs: Orthostatics: Supine: 144/73, heart rate 90 Sittin/72, heart rate 81 Standin/72, heart rate 87 ROM: Right Upper Extremity: WFL Left Upper Extremity: WFL Right Lower Extremity: WFL Left Lower Extremity: WFL Strength: Right Upper Extremity: Shoulder elbow and wrist motions are all 3/5 or greater Left Upper Extremity: Shoulder elbow and wrist motions are all 3/5 or greater Right Lower Extremity: Ankle dorsiflexion 3/5 or greater. Hamstrings 3/5 or greater. Functionally, patient is able to perform SLR, and demonstrates quad strength of 3/5 or greater in seated position. Left Lower Extremity: Ankle dorsiflexion 3/5 or greater. Hamstrings 3/5 or greater. Functionally, patient is able to perform SLR, and demonstrates quad strength of 3/5 or greater in seated position. Bed Mobility/Transfers: Supine?sit: Supervision Sit?supine: Supervision Sit?stand: Supervision Stand?sit: Supervision Gait: Patient was able to independently ambulate 3 feet in treatment room, without noted balance deficits. Distance was limited by length of lines. He was able to perform 90 degrees turns in both directions with good safety awareness and no signs of imbalance. Balance: Static Sitting: Normal Dynamic Sitting: Normal Static Standing: Good Dynamic Standing: Good Informed Consent/Education: Patient instructed in purpose of PT consult and plan of care. Assessment: Patient is a 78 year old male referred to physical therapy services from the emergency department, where he presented for management of nausea and vomiting. PT consult was requested to assess patient's mobility and ability to transition back to rehab facility where he has been rehabilitating since resection of his glioblastoma 1 month ago. Patient was able to safely demonstrate supervised bed mobility and transfers, and is safe for transition back to [facility] once medically cleared. Patient is assessed as a Low 92590 complexity based on the following: History: 78-year-old male presenting to ER with nausea and vomiting. Patient is a [facility], where he has been recuperating from resection of a glioblastoma performed last month. He has baseline mobility deficits, although during evaluation demonstrates sufficient mobility to allow for transition back to SNF Examination: Safe to return to SNF Presentation: Stable Decision Making: Low complexity Plan of Care/Treatment Plan: Patient seen for safety consultation only. No further PT intervention required in this setting. Recommend resuming PT intervention upon return to [facility] and rehab for continued progress towards established goals. DISCHARGE RECOMMENDATIONS: SNF TREATMENT CODE/TIME: 3:20-3:45 ([id number]) Ananya Britton, PT, DPT [facility]
[2018-11-23] MEDS: Dexamethasone 4 MG TAB 2 MG PO (15:42)
== END 2018-11-23 17:27 | disposition home or self-care (01) ==
PROVIDERS: Emergency Provider Physician Assistant; PCP Family Medicine
DX: R51 Headache (principal); R11.2 Nausea with vomiting, unspecified; R93.0 Abnormal findings on diagnostic imaging of skull and head, not elsewhere classified; C71.9 Malignant neoplasm of brain, unspecified; I10 Essential (primary) hypertension; Z98.890 Other specified postprocedural states
CPT/HCPCS: 36415; 80053; 93005; 96374; 97161; 99285; 70450; 71046; 83735; 84484; 85025; 85610; 85730; 93010; J8540

== ENCOUNTER 2018-11-27 10:22 | Outpatient (CLI) | payer MEDICARE, BC, SELFPAY ==
[2018-11-27 11:59] LABS: Abs Immature Grans 0.15 k/cumm (0.0-0.09); Absolute Basophil Count 0.02 k/cumm (0.0-0.2); Absolute Eosinophil Count 0.12 k/cumm (0.0-0.7); Absolute Lymphocyte Count 1.12 k/cumm (1.2-3.4); Absolute Neutrophil Count 6.97 k/cumm (1.2-6.7); Basophils % 0.2; Eosinophils % 1.3; HCT 39.3 % (40.0-50.0); HGB 13.5 g/dL (13.5-17.5); Immature Grans % 1.7; Lymphocytes % 12.3; Mean Corp. HGB Concentration 34.4 g/dL (32.0-36.0); Mean Corpuscular Hemoglobin 32.5 pg (27.0-33.0); Mean Corpuscular Volume 94.5 fL (80-95); Mean Platelet Volume 8.9 fL (8.0-11.0); Monocytes % 7.7; Neutrophils % 76.8; Platelet Count 304 x1000/uL (130-400); RBC 4.16 m/cumm (4.50-6.00); White Blood Cell Count 9.08 k/cumm (4.4-10.8)
== END 2018-11-27 10:42 ==
PROVIDERS: PCP Family Medicine; Visit Provider Nurse Practitioner Adult Health
DX: C71.1 Malignant neoplasm of frontal lobe (principal)
CPT/HCPCS: 36415; 85025

== ENCOUNTER 2018-11-27 12:10 | Emergency (ER) | payer MEDICARE, BC, SELFPAY ==
[2018-11-27] VITALS (39 sets, daily range): BP systolic 109–132; BP diastolic 52–78; PULSE 68–94; RESP 11–30; TEMP 36.5; O2SAT 88–98
--- NOTE | 2018-11-27 12:10 | ED.GENADUL_ITS ---
Discharge Plan Disposition Patient Disposition: HOME Condition: Stable Discharge Details Chief Complaint: Seizure Clinical Impression: Seizure, History of brain tumor, S/P craniotomy Primary Care Provider: Riaz Penaloza ED Provider: Kathleen Zamorano Home Meds and New Rx's Prescriptions: New levetiracetam [Keppra] 1,000 mg tablet 1,000 mg PO BID 30 Days Qty: 60 RF: 0 Continued cilostazol 100 mg tablet 100 mg PO BID RF: 0 omeprazole 40 mg capsule,delayed release(DR/EC) 40 mg PO DAILY PRN RF: 0 aspirin 81 mg tablet,chewable 81 mg PO DAILY RF: 0 Metamucil [place] powder 1 tbs PO DAILY PRN RF: 0 potassium chloride 40 mEq/15 mL Liquid 40 meq PO DAILY RF: 0 lisinopril-hydrochlorothiazide [Zestoretic] 10-12.5 mg Tablet 1 tab PO DAILY RF: 0 dexamethasone [Decadron] 0.5 mg tablet See Rx Instructions .ROUTE .COMPLEX Qty: 14 RF: 0 prochlorperazine maleate [Compazine] 10 mg tablet 10 mg PO Q8H PRN (Reason: nausea and vomiting) Qty: 6 RF: 0 Discontinued levetiracetam [Keppra] 500 mg Tablet 500 mg PO BID RF: 0 Discharge Instructions Instructions: Recurrent Seizures in Adults (ED) Additional Instructions: Neurosurgery would like you to increase your Keppra from 750 mg orally twice daily to 1000 mg orally twice daily. You already received 750 mg of Keppra this morning at the rehab and you were given an additional 250 mg Keppra orally while here in the emergency department. Take your second dose of 1000 mg Keppra orally this evening. Neurosurgery will see you tomorrow at [facility] for your scheduled follow-up appointment. If there are any worsening or new concerning symptoms, return immediately to the emergency department. Discharge Data Discharge Physician: Kathleen Zamorano Medical Decision Making 78-year-old male with a history of glioblastoma status post craniotomy with resection on 10/25 at [facility] who presents from [facility] for left-sided seizure activity since yesterday. Patient talking in route per EMS. Vitals normal per EMS. Patient was noted to have continual left-sided jerking from the left arm and left foot which was thought to be due to seizure in route and was given 2.5 mg of Versed just prior to arrival to ED. Patient arrives to ED sleeping and sonorous. No report of trauma and no evidence of trauma on exam. PERRLA. Very minimal left foot twitching noted. Will send for stat CT head to rule out bleed versus edema. We will also check screening labs, chest x-ray, EKG and give small bolus IV fluids. 1245 --CT head unchanged compared to previous. Chest x-ray negative per 1310 -- now here who states that patient had been doing well up until yesterday. She states he had a brief period of left arm jerking which then resolved. She states since yesterday he has had violent left leg jerking. She states at no point has he lost consciousness and been fully awake and alert during this. She states he was unable to sleep last night due to his left leg twitching. She also states yesterday he was noted to have a few episodes in which his head rotated to the left and he appeared confused and then was back to baseline. She states he complained of difficulty with turning his head to the right due to pain but overall she states that he appears to have a preference of leaning to the left. Patient is still sleeping and still noted to have left foot twitching. 1340 --labs reviewed and unremarkable. Patient is now awake and alert and answering all questions. Still noted to have left foot jerking. Labs reviewed and unremarkable. 1445 --d/w [facility] neurosurgery -reviewed CT and no acute change. States that symptom presentation appears likely consistent with seizures. States that the rehab called neurosurgery yesterday when patient symptoms started in the increase his Keppra from 500 mg twice daily to 750 mg twice daily. He recommends at this time to increase to 1000 mg twice daily. Recommends to give 250 mg now to make this a total of 1000 mg for this morning. Recommends to continue Decadron as directed. Will follow up with patient at [facility] tomorrow for reevaluation and may consider adding another seizure medication and/or an EEG at that time. and patient feel good with plan. Patient is now awake and talking and oriented x3 but still noted to have L foot twitching and intermittent head jerking to the left which states pt had yesterday. Medical Records Medical records reviewed: Yes I reviewed the patient's medical records. Lab Data Lab results reviewed: Yes I reviewed the patient's lab results. ECG Data Attestation: I personally reviewed and interpreted this ECG (s) as follows: Interpretation: EKG notes a rate of 83, sinus, no acute ST elevation or depression. QTc 430. QRS 97. HPI General Mode of arrival: EMS . Date/Time Provider Initiated Documentation: 11/27/18 12:15 . Limitations to Documentation: altered mental status . Information obtained by: EMS . HPI Narrative: Patient is a 78-year-old male with a history of recently diagnosed glioblastoma status post craniotomy on 10/25 at [facility] who has been at the [facility] rehab since his discharge from [facility] last month who presents with seizures since yesterday. EMS states that patient has been noted to have focal left-sided seizures since yesterday. Patient was given 750 mg of Keppra this morning. Patient was noted to have left arm and left foot twitching since yesterday. Upon EMS arrival today, patient with jerking of left arm and left foot which was thought to be a seizure and was given 2.5 mg Versed. Patient arrived to ED sleeping and sonorous and unable to provide history. Related Data Home Medications Medication Instructions Recorded Confirmed aspirin 81 mg chewable tablet 81 mg PO DAILY 02/23/18 11/27/18 cilostazol 100 mg tablet 100 mg PO BID 02/23/18 11/27/18 omeprazole 40 mg capsule,delayed 40 mg PO DAILY PRN cap 02/23/18 11/27/18 release psyllium seed (sugar) oral powder 1 tbs PO DAILY PRN gm 02/23/18 11/27/18 dexamethasone [Decadron] See Rx Instructions .ROUTE 11/23/18 11/27/18 .COMPLEX #14 tab lisinopril-hydrochlorothiazide 1 tab PO DAILY 11/23/18 11/27/18 [Zestoretic] prochlorperazine maleate 10 mg PO Q8H PRN #6 tab 11/23/18 11/27/18 [Compazine] levetiracetam [Keppra] 1,000 mg PO BID 30 Days #60 tab 11/27/18 potassium chloride 40 meq PO DAILY 11/27/18 11/27/18 Previous Rx's Medication Instructions Recorded dexamethasone [Decadron] See Rx Instructions .ROUTE 11/23/18 .COMPLEX #14 tab prochlorperazine maleate 10 mg PO Q8H PRN #6 tab 11/23/18 [Compazine] levetiracetam [Keppra] 1,000 mg PO BID 30 Days #60 tab 11/27/18 Allergies Allergy/AdvReac Type Severity Reaction Status Date / Time venom-honey bee Allergy Severe Swelling Unverified 11/27/18 12:57 [bee venom (honey bee)] Penicillins Allergy Unverified 11/27/18 12:57 General DEMI: 3 Review of Systems Review of Systems Unobtainable due to mental status [facility] Medical History Peripheral arterial occlusive disease (Acute) HTN (hypertension) (Chronic) Social History Smoking/Tobacco Use Status: Current every day Tobacco Type: cigarettes Second Hand Exposure: Yes Alcohol Intake: current Alcohol Intake frequency: holidays/special occasions only Alcohol type: hard liquor Drug use: Never Substance use type: does not use Details: Pt is not only smoking a lot of cigeretts but is chewing nicodine gum. current occupation: [employer] Pets and animals: Yes Pets and animals: cat(s) Frequency: does not exercise Macrina/Religious: Pentecostalism Special macrina needs: No Do you feel safe at home: Yes Do you feel safe in your relationship?: Yes Exam Const General: no acute distress and other (sleeping, sonorous) [facility] Head: normal to inspection Face and sinus: normal facial exam Eyes General: appearance normal, both eyes and all related structures Pupils: PERRL Neck Neck: normal visual inspection and No submandibular swelling Lymphatic: no lymphadenopathy noted Chest Chest: normal inspection of the chest and no tenderness Resp Effort & Inspection: normal respiratory effort Auscultation: clear to auscultation bilaterally Cardio Rate: regular rate Rhythm: regular rhythm GI Inspection: normal to inspection Palpation: soft, not firm, not rigid and nontender Auscultation: normal bowel sounds Skin General skin exam: no rashes or lesions noted Neuro General: other (sleeping, snoring on arrival) Motor: other (L foot twitching) Extrem General: normal to inspection, full ROM, normal capillary refill, no calf tenderness bilaterally and no edema Other: B/L DP pulses intact. Psych Appearance: grossly normal
--- NOTE | 2018-11-27 12:16 | DI.CT_ITS ---
SYMPTOMS/DIAGNOSIS: SEIZURE, H/O BRAIN TUMOR WITH RESECTION, ? EDEMA/BLEED/MIDLINE SHIFT CRANIAL CT: The study is compared with the prior exam of 11/23/18. The study is compared with the prior exam of 11/23/18. Again noted are the post surgical changes in this patient who is status post resection of a frontoparietal right glioblastoma. Again noted is a left shift of the midline with no definite interval change. Again demonstrated is a fluid collection beneath the craniotomy site which is likely on a post surgical basis. The maximal thickness of this collection is approximately 9 mm which is unchanged. The left hemisphere and basal cisterns appear intact. SUMMARY: No appreciable interval change when compared with the prior examination of 11/23/18 in this patient who is status post right frontoparietal craniotomy for a glioblastoma.
--- NOTE | 2018-11-27 12:16 | DI.RAD_ITS ---
SYMPTOMS/DIAGNOSIS: SEIZURE, ? ACUTE DISEASE AP UPRIGHT CHEST: The lungs are free of infiltrate. There is no pleural effusion. The cardiovascular structures are intact. SUMMARY: No evidence of acute cardiopulmonary disease.
--- NOTE | 2018-11-27 12:17 | NUR.NOTE ---
Nursing Note: pt arrives via EMS who reports pt has left sided tremors. that had started yesterday pt was verbal upon EMS seed cone picker. EMS abolished 20 RFA 2.5 mg versed. upon arrival to ED PT not awakable however vitals are stable no signs of tremors
[2018-11-27 13:00] LABS: Abs Immature Grans 0.13 k/cumm (0.0-0.09); Absolute Basophil Count 0.02 k/cumm (0.0-0.2); Absolute Monocyte Count 0.63 k/cumm (0.11-0.7); Absolute Neutrophil Count 7.43 k/cumm (1.2-6.7); Basophils % 0.2; Eosinophils % 1.1; HCT 38.1 % (40.0-50.0); Immature Grans % 1.4; Lymphocytes % 7.8; Mean Corp. HGB Concentration 34.1 g/dL (32.0-36.0); Mean Corpuscular Hemoglobin 32.1 pg (27.0-33.0); Mean Corpuscular Volume 94.1 fL (80-95); Mean Platelet Volume 8.6 fL (8.0-11.0); Neutrophils % 82.5; Platelet Count 295 x1000/uL (130-400); RBC 4.05 m/cumm (4.50-6.00); RBC Distribution Width 12.8 % (11.8-14.1); White Blood Cell Count 9.01 k/cumm (4.4-10.8)
[2018-11-27 13:22] LABS: ALT 26 U/L (12-78); AST 13 U/L (15-37); Albumin 2.5 g/dL (3.4-5.0); Alkaline Phosphatase 121 U/L (46-116); Anion Gap 7.3 mmol/L (3-11); BUN 9 mg/dL (7-18); Bilirubin, Total 0.4 mg/dL (0.2-1.0); CO2 27.7 mmol/L (21.0-32.0); CREATININE 0.61 mg/dL (0.70-1.30); Calcium 8.5 mg/dL (8.5-10.1); Chloride 103 mmol/L (98-107); Glucose 95 mg/dL (70-100); Potassium 3.5 mmol/L (3.5-5.1); Sodium 138 mmol/L (136-145); Total Protein 6.2 g/dL (6.4-8.2)
[2018-11-27 13:26] LABS: Troponin I < 0.02 ng/mL (0.00-0.06)
[2018-11-27] MEDS: Normal Saline 250 ML IV (13:40)
--- NOTE | 2018-11-27 14:07 | NUR.NOTE ---
Nursing Note: PTs cognition has greatly improved.; AOx4 able to make full sentences
[2018-11-27] MEDS: levETIRAcetam 250 MG TAB PO (15:11)
--- NOTE | 2018-11-27 15:22 | NUR.NOTE ---
Nursing Note: pt awake and conversing able to eat large bowl of pudding
== END 2018-11-27 15:45 | disposition home or self-care (01) ==
PROVIDERS: Emergency Provider Physician Assistant; PCP Family Medicine
DX: R56.9 Unspecified convulsions (principal); I70.209 Unspecified atherosclerosis of native arteries of extremities, unspecified extremity; D44.6 Neoplasm of uncertain behavior of carotid body; I10 Essential (primary) hypertension; Z98.890 Other specified postprocedural states
CPT/HCPCS: 36415; 80053; 93005; 96360; 96361; 99285; 70450; 71045; 83735; 84484; 85025; 93010

== ENCOUNTER 2018-11-28 08:45 | Emergency (ER) | payer MEDICARE, BC, SELFPAY ==
[2018-11-28] VITALS (103 sets, daily range): BP systolic 126–192; BP diastolic 61–167; PULSE 68–106; RESP 11–25; TEMP 37.3; O2SAT 88–97
--- NOTE | 2018-11-28 08:34 | W.ED.GENAD ---
Discharge Plan Discharge Details Chief Complaint: CVA/TIA Primary Care Provider: Riaz Penaloza ED Provider: Jacki Esparza Home Meds and New Rx's Prescriptions: No Action cilostazol 100 mg tablet 100 mg PO BID RF: 0 omeprazole 40 mg capsule,delayed release(DR/EC) 40 mg PO DAILY PRN RF: 0 aspirin 81 mg tablet,chewable 81 mg PO DAILY RF: 0 Metamucil [place] powder 1 tbs PO DAILY PRN RF: 0 potassium chloride 40 mEq/15 mL Liquid 40 meq PO DAILY RF: 0 levetiracetam [Keppra] 1,000 mg tablet 1,000 mg PO BID 30 Days Qty: 60 RF: 0 lisinopril-hydrochlorothiazide [Zestoretic] 10-12.5 mg Tablet 1 tab PO DAILY RF: 0 dexamethasone [Decadron] 0.5 mg tablet See Rx Instructions .ROUTE .COMPLEX Qty: 14 RF: 0 prochlorperazine maleate [Compazine] 10 mg tablet 10 mg PO Q8H PRN (Reason: nausea and vomiting) Qty: 6 RF: 0 Discharge Data Discharge Date/Time-TO BE ENTERED AT DEPARTURE: 11/28/18 19:34 Medical Decision Making Nico Arreola is a 70-year-old man with 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 On exam patient is somewhat ill-appearing. He is alert and speaking, but seems to have some receptive aphasia. Cranial nerves appear intact. There is weakness of the left arm and left leg in addition to significant muscle twitching of the left leg. Concern for seizures versus stroke versus metabolic/lyte disturbance versus other. Patient has had recent imaging that was negative, but given acute change we will proceed with CT head, CTA head and neck, EKG, screening labs. I discussed the patient's presentation with Jennifer Butler of neurosurgery at [facility] at approximately 9 AM, who requested 1000 mg of Keppra IV in addition to patient's morning dose that he already took, and also 2 more grams Ativan IV for possible continued seizures, she will await imaging results for further recommendations. Imaging pushed to [facility] at time of completion. 10:47: [facility] neurosurgery contacted for transfer, awaiting callback. Imaging resulted, CT negative for acute pathology with 60% stenosis of the right ICA and no occlusion. Labs nondiagnostic. Patient resting comfortably, some improvement in twitching of the left lower extremity after medication. 11:28: [facility] center contacted by field secretary, still awaiting callback from neurosurgery. 11:32: [facility] neurosurgery called back, they feel it is likely that patient is having partial seizures and needs neurologic work-up for this. No beds available at [facility]. Neurosurgery would like a neurologic input for patient to possibly state NVR H. It is not clear to me whether patient would be appropriate for admission at [facility], will discuss with hospitalist and Dr. May of neurology. 11:55: Spoke with Dr. Momin of neurology at [facility], who states that patient needs continuous EEG. She is double checking on bed availability at [facility]. No urgent medication recommendations at this time despite likely ongoing partial seizures. Per Dr. May no ability to do overnight EEG today. I called [facility] anticipating possible transfer to their facility, awaiting callback from neurology. 12:10: Callback from [facility], I spoke with Dr. Castillo of neurology. He has no emergent recommendations, but would like to discuss the patient's case with neurologist/neurosurgeon who has been caring for the patient since his surgery prior to accepting the patient. This is to be arranged by the [facility] transfer center. Awaiting callback. 12:27: I called [facility] center, who is planning to discuss case with certified medical aide, but they continue to doubt that transfer will be possible. 12:50: Call back from [facility] stating that Pt had been accepted at [facility] pending bed availbility. Will contact [facility] for clarification. 13:15: Call back from [facility] transfer center:after certified medical aide to certified medical aide discussion between [facility] and [facility], [facility] accepts patient pending bed availability. I discussed my concern that patient would not be receiving EEG or neurologic specialty care here if transfer is delayed due to bed availability, patient would benefit from being transferred sooner to another facility. [facility] transfer center stated that they believed that bed availability would occur in a timely fashion. Given that all of patient's care has been performed by [facility], at this time transfer to [facility] is best plan for patient's care. Patient is sleeping comfortably, easily arousable, twitching of left leg continues but has decreased from arrival, does cease intermittently. We will continue to monitor. Lengthy and multiple discussions with family at bedside regarding plan, who are amenable. Pt transferred to [facility] without further issue. Medical Records Medical records reviewed: Yes I reviewed the patient's medical records. Imaging Data Radiologic Study: Attestation: I personally reviewed and interpreted this imaging study as follows: Radiologist's impression: AP CHEST: Comparison is made with 11/27/18. Heart size and pulmonary vasculature are within normal limits. No focal infiltrates, effusions or pneumothoraces are identified. Degenerative changes are seen in the spine. IMPRESSION: No acute pulmonary process. HEAD AND NECK CTA: CT angiography was performed with multi slice acquisition and multi planar and 3D reconstruction. CT angiography of the head and neck was performed. There is suboptimal opacification of the arteries noted. NECK: The common carotid arteries are unremarkable without evidence of dissection, occlusion or significant stenosis. The external carotid arteries are unremarkable without evidence of occlusion or significant stenosis. There is atherosclerosis seen in the origin of the left internal carotid artery but no significant stenosis is seen. No occlusion is present. There is narrowing of the origin of the right internal carotid artery of approximately 60%. The vertebral arteries are unremarkable without evidence of occlusion or significant stenosis. There are degenerative changes in the cervical spine. The lung apices show no acute abnormality. IMPRESSION: 1. 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 There is approximately 60% stenosis noted. HEAD: The internal carotid arteries show no significant stenosis, occlusion or aneurysm. The anterior cerebral arteries are unremarkable without evidence of aneurysm, occlusion or stenosis. The middle cerebral arteries are unremarkable without evidence of occlusion or significant stenosis. The posterior cerebral arteries show no evidence of significant stenosis, occlusion or aneurysm. The basilar artery is unremarkable without evidence of aneurysm, dissection or significant stenosis. IMPRESSION: Normal CTA of the brain. NONCONTRAST HEAD CT: Comparison is made with 11/27/18. There are again seen post surgical changes in the right frontal and parietal lobes consistent with the patient's recent glioblastoma resection. There has been no significant change of the post surgical findings. There is a persistent slight leftward midline shift. The ventricles are intact. The basilar cisterns are patent. There is again seen a right craniotomy. No acute fracture is identified. The visualized paranasal sinuses are clear. The mastoid air cells are well pneumatized. IMPRESSION: No significant change in appearance of the brain compared to the prior examination. Lab Data Lab results reviewed: Yes I reviewed the patient's lab results. 11/28/18 09:26 Blood Blood Culture - Final NO GROWTH 120 HOURS 11/28/18 09:14 Blood Blood Culture - Final NO GROWTH 120 HOURS Laboratory Tests Range/Units 11/28/18 11/28/18 11/28/18 08:55 08:55 08:55 WBC (4.4-10.8) k/cumm 10.53 RBC (4.50-6.00) m/cumm 4.20 L Hgb (13.5-17.5) g/dL 13.6 Hct (40.0-50.0) % 39.7 L MCV (80-95) fL 94.5 MCH (27.0-33.0) pg 32.4 MCHC (32.0-36.0) g/dL 34.3 RDW (11.8-14.1) % 13.1 Plt Count (130-400) x1000/uL 305 MPV (8.0-11.0) fL 8.4 Immature Gran % 1.4 Neutrophils % 80.2 Lymphocytes % 11.3 Monocytes % 6.6 Eosinophils % 0.3 Basophils % 0.2 Absolute Neutrophils (1.2-6.7) k/cumm 8.44 H Absolute Lymphocytes (1.2-3.4) k/cumm 1.19 L Absolute Monocytes (0.11-0.7) k/cumm 0.70 Absolute Eosinophils (0.0-0.7) k/cumm 0.03 Absolute Basophils (0.0-0.2) k/cumm 0.02 Sodium (136-145) mmol/L 139 Potassium (3.5-5.1) mmol/L 3.8 Chloride (98-107) mmol/L 104 Carbon Dioxide (21.0-32.0) mmol/L 26.6 Anion Gap (3-11) mmol/L 8.4 BUN (7-18) mg/dL 15 D Creatinine (0.70-1.30) mg/dL 0.71 Estimated GFR/1.73 m2 (mL/min/1.73m2) >= 60.00 Glucose (70-100) mg/dL 80 Lactate (0.6-1.4) mmol/l 0.7 Calcium (8.5-10.1) mg/dL 8.4 L Magnesium (1.8-2.4) mg/dL Total Bilirubin (0.2-1.0) mg/dL 0.5 AST (15-37) U/L 17 ALT (12-78) U/L 27 Alkaline Phosphatase (46-116) U/L 124 H Troponin I (0.00-0.06) ng/mL Total Protein (6.4-8.2) g/dL 6.5 Albumin (3.4-5.0) g/dL 2.6 L Range/Units 11/28/18 08:55 WBC (4.4-10.8) k/cumm RBC (4.50-6.00) m/cumm Hgb (13.5-17.5) g/dL Hct (40.0-50.0) % MCV (80-95) fL MCH (27.0-33.0) pg MCHC (32.0-36.0) g/dL RDW (11.8-14.1) % Plt Count (130-400) x1000/uL MPV (8.0-11.0) fL Immature Gran % Neutrophils % Lymphocytes % Monocytes % Eosinophils % Basophils % Absolute Neutrophils (1.2-6.7) k/cumm Absolute Lymphocytes (1.2-3.4) k/cumm Absolute Monocytes (0.11-0.7) k/cumm Absolute Eosinophils (0.0-0.7) k/cumm Absolute Basophils (0.0-0.2) k/cumm Sodium (136-145) mmol/L Cancelled Potassium (3.5-5.1) mmol/L Cancelled Chloride (98-107) mmol/L Cancelled Carbon Dioxide (21.0-32.0) mmol/L Cancelled Anion Gap (3-11) mmol/L Cancelled BUN (7-18) mg/dL Cancelled Creatinine (0.70-1.30) mg/dL Cancelled Estimated GFR/1.73 m2 (mL/min/1.73m2) Cancelled Glucose (70-100) mg/dL Cancelled Lactate (0.6-1.4) mmol/l Calcium (8.5-10.1) mg/dL Cancelled Magnesium (1.8-2.4) mg/dL 2.2 Total Bilirubin (0.2-1.0) mg/dL Cancelled AST (15-37) U/L Cancelled ALT (12-78) U/L Cancelled Alkaline Phosphatase (46-116) U/L Cancelled Troponin I (0.00-0.06) ng/mL < 0.02 Total Protein (6.4-8.2) g/dL Cancelled Albumin (3.4-5.0) g/dL Cancelled ECG Data Attestation: I personally reviewed and interpreted this ECG (s) as follows: Interpretation: EKG shows sinus rhythm 81, normal axis, no acute ischemic changes HPI General Mode of arrival: EMS. Date/Time Provider Initiated Documentation: 11/28/18 08:51. Limitations to Documentation: physical limitation (Difficulty with speech). Information obtained by: patient, EMS, RN notes reviewed and old records reviewed. HPI Narrative: Nico Arreola is a 78-year-old man with history of glioblastoma resection at [facility] 10/25/2018 presenting to the emergency department with left-sided weakness. Patient was admitted to [facility] for 24 days after surgery, and has been at [facility] and rehab for approximately the past 2 weeks. He was doing well until 11/23/2018, when he developed twitching of the left arm and leg. He had a negative head CT at that time and was started on Decadron and Keppra and discharged. He presented to the emergency department again yesterday for worsening twitching of the left arm and leg. His Keppra dose was increased and he was again discharged. Patient was scheduled to have appointment with neurosurgery at [facility] today 1130. Per EMS, patient developed weakness of the left arm and left leg, also with left lateral gaze preference and left lateral rotation of the neck both new since last night. Has been intermittently ambulatory and eating during his stay at rehab, but worse since 11/23/2018. Related Data Home Medications Medication Instructions Recorded Confirmed aspirin 81 mg chewable tablet 81 mg PO DAILY 02/23/18 11/28/18 cilostazol 100 mg tablet 100 mg PO BID 02/23/18 11/28/18 omeprazole 40 mg capsule,delayed 40 mg PO DAILY PRN cap 02/23/18 11/28/18 release psyllium seed (sugar) oral powder 1 tbs PO DAILY PRN gm 02/23/18 11/28/18 dexamethasone [Decadron] See Rx Instructions .ROUTE 11/23/18 11/28/18 .COMPLEX #14 tab lisinopril-hydrochlorothiazide 1 tab PO DAILY 11/23/18 11/28/18 [Zestoretic] prochlorperazine maleate 10 mg PO Q8H PRN #6 tab 11/23/18 11/28/18 [Compazine] levetiracetam [Keppra] 1,000 mg PO BID 30 Days #60 tab 11/27/18 11/28/18 potassium chloride 40 meq PO DAILY 11/27/18 11/28/18 Previous Rx's Medication Instructions Recorded dexamethasone [Decadron] See Rx Instructions .ROUTE 11/23/18 .COMPLEX #14 tab prochlorperazine maleate 10 mg PO Q8H PRN #6 tab 11/23/18 [Compazine] levetiracetam [Keppra] 1,000 mg PO BID 30 Days #60 tab 11/27/18 Allergies Allergy/AdvReac Type Severity Reaction Status Date / Time venom-honey bee Allergy Severe Swelling Unverified 11/28/18 13:47 [bee venom (honey bee)] Penicillins Allergy Unverified 11/28/18 13:47 General DEMI: 2 Review of Systems Review of Systems Constitutional: fever yesterday per EMS Eyes: denies eye pain ENT: denies facial pain, dental pain, sore throat Cardiovascular: denies chest pain Respiratory: denies SOB GI: denies abdominal pain, vomiting, diarrhea : denies flank pain MSK: denies back pain, neck pain Skin: denies rash Neuro: denies headaches, numbness, reports weakness PFSH Medical History Peripheral arterial occlusive disease (Acute) HTN (hypertension) (Chronic) Social History Smoking/Tobacco Use Status: Current every day Tobacco Type: cigarettes Second Hand Exposure: Yes Alcohol Intake: current Alcohol Intake frequency: holidays/special occasions only Alcohol type: hard liquor Drug use: Never Substance use type: does not use Details: Pt is not only smoking a lot of cigeretts but is chewing nicodine gum. current occupation: [employer] Pets and animals: Yes Pets and animals: cat(s) Frequency: does not exercise Macrina/Yazidism: Buddhism Special macrina needs: No Do you feel safe at home: Yes Do you feel safe in your relationship?: Yes Exam Narrative Exam Narrative: Constitutional: ill-appearing, pleasant, conversing in whisper HENT: head atraumatic/normocephalic/normal inspection, mucous membranes moist Eyes: conjunctiva normal, sclera normal, pupils 3mm b/l, extraocular movements intact Neck: no stridor, normal ROM, trachea midline Chest: normal inspection Resp: normal work of breathing, LCTAB Cardio: normal rate, normal rhythm, no murmur appreciated GI: abdomen soft, non-tender, non-distended Back: normal inspection, no rash Skin: warm, dry, normal color, no rash Neuro: alert, not altered but does seem to have some difficulty following commands, cranial nerves II through XII intact, motor 3 out of 5 left upper extremity, patient does not voluntarily move left lower extremity at all, frequent muscle twitching of the left lower extremity more than the left upper extremity, normal neurologic exam of the right upper and lower extremities, normal tone. Ext: no edema
--- NOTE | 2018-11-28 09:03 | ED.GENADUL_ITS ---
Discharge Plan Discharge Details Chief Complaint: CVA/TIA Primary Care Provider: Riaz Penaloza ED Provider: Jacki Esparza Home Meds and New Rx's Prescriptions: No Action cilostazol 100 mg tablet 100 mg PO BID RF: 0 omeprazole 40 mg capsule,delayed release(DR/EC) 40 mg PO DAILY PRN RF: 0 aspirin 81 mg tablet,chewable 81 mg PO DAILY RF: 0 Metamucil [place] powder 1 tbs PO DAILY PRN RF: 0 potassium chloride 40 mEq/15 mL Liquid 40 meq PO DAILY RF: 0 levetiracetam [Keppra] 1,000 mg tablet 1,000 mg PO BID 30 Days Qty: 60 RF: 0 lisinopril-hydrochlorothiazide [Zestoretic] 10-12.5 mg Tablet 1 tab PO DAILY RF: 0 dexamethasone [Decadron] 0.5 mg tablet See Rx Instructions .ROUTE .COMPLEX Qty: 14 RF: 0 prochlorperazine maleate [Compazine] 10 mg tablet 10 mg PO Q8H PRN (Reason: nausea and vomiting) Qty: 6 RF: 0 Discharge Data Discharge Date/Time-TO BE ENTERED AT DEPARTURE: 11/28/18 19:34 Medical Decision Making Nico Arreola is a 70-year-old man with 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 On exam patient is somewhat ill-appearing. He is alert and speaking, but seems to have some receptive aphasia. Cranial nerves appear intact. There is weakness of the left arm and left leg in addition to significant muscle twitching of the left leg. Concern for seizures versus stroke versus metabolic/lyte disturbance versus other. Patient has had recent imaging that was negative, but given acute change we will proceed with CT head, CTA head and neck, EKG, screening labs. I discussed the patient's presentation with Jennifer Butler of neurosurgery at [facility] at approximately 9 AM, who requested 1000 mg of Keppra IV in addition to patient's morning dose that he already took, and also 2 more grams Ativan IV for possible continued seizures, she will await imaging results for further recommendations. Imaging pushed to [facility] at time of completion. 10:47: [facility] neurosurgery contacted for transfer, awaiting callback. Imaging resulted, CT negative for acute pathology with 60% stenosis of the right ICA and no occlusion. Labs nondiagnostic. Patient resting comfortably, some improvement in twitching of the left lower extremity after medication. 11:28: [facility] center contacted by church secretary, still awaiting callback from neurosurgery. 11:32: [facility] neurosurgery called back, they feel it is likely that patient is having partial seizures and needs neurologic work-up for this. No beds available at [facility]. Neurosurgery would like a neurologic input for patient to possibly state NVR H. It is not clear to me whether patient would be appropriate for admission at [facility], will discuss with hospitalist and Dr. May of neurology. 11:55: Spoke with Dr. Momin of neurology at [facility], who states that patient needs continuous EEG. She is double checking on bed availability at [facility]. No urgent medication recommendations at this time despite likely ongoing partial seizures. Per Dr. May no ability to do overnight EEG today. I called [facility] anticipating possible transfer to their facility, awaiting callback f rom neurology. 12:10: Callback from [facility], I spoke with Dr. Castillo of neurology. He has no emergent recommendations, but would like to discuss the patient's case with neurologist/neurosurgeon who has been caring for the patient since his surgery prior to accepting the patient. This is to be arranged by the [facility] transfer center. Awaiting callback. 12:27: I called [facility] transfer center, who is planning to discuss case with medical laboratory assistant, but they continue to doubt that transfer will be possible. 12:50: Call back from [facility] stating that Pt had been accepted at [facility] pending bed availbility. Will contact [facility] for clarification. 13:15: Call back from [facility] transfer center:after medical laboratory assistant to medical laboratory assistant discussion between [facility] and [facility], [facility] accepts patient pending bed availability. I discussed my concern that patient would not be receiving EEG or neurologic specialty care here if transfer is delayed due to bed availability, patient would benefit from being transferred sooner to another facility. [facility] transfer center stated that they believed that bed availability would occur in a timely fashion. Given that all of patient's care has been performed by [facility], at this time transfer to [facility] is best plan for patient's care. Patient is sleeping comfortably, easily arousable, twitching of left leg continues but has decreased from arrival, does cease intermittently. We will continue to monitor. Lengthy and multiple discussions with family at bedside regarding plan, who are amenable. Pt transferred to [facility] without further issue. Medical Records Medical records reviewed: Yes I reviewed the patient's medical records. Imaging Data Radiologic Study: Attestation: I personally reviewed and interpreted this imaging study as follows: Radiologist's impression: AP CHEST: Comparison is made with 11/27/18. Heart size and pulmonary vasculature are within normal limits. No focal infiltrates, effusions or pneumothoraces are identified. Degenerative changes are seen in the spine. IMPRESSION: No acute pulmonary process. HEAD AND NECK CTA: CT angiography was performed with multi slice acquisition and multi planar and 3D reconstruction. CT angiography of the head and neck was performed. There is suboptimal opacification of the arteries noted. NECK: The common carotid arteries are unremarkable without evidence of dissection, occlusion or significant stenosis. The external carotid arteries are unremarkable without evidence of occlusion or significant stenosis. There is atherosclerosis seen in the origin of the left internal carotid artery but no significant stenosis is seen. No occlusion is present. There is narrowing of the origin of the right internal carotid artery of approximately 60%. The vertebral arteries are unremarkable without evidence of occlusion or significant stenosis. There are degenerative changes in the cervical spine. The lung apices show no acute abnormality. IMPRESSION: 1. 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 There is approximately 60% stenosis noted. HEAD: The internal carotid arteries show no significant stenosis, occlusion or aneurysm. The anterior cerebral arteries are unremarkable without evidence of aneurysm, occlusion or stenosis. The middle cerebral arteries are unremarkable without evidence of occlusion or significant stenosis. The posterior cerebral arteries show no evidence of significant stenosis, occlusion or aneurysm. The basilar artery is unremarkable without evidence of aneurysm, dissection or significant stenosis. IMPRESSION: Normal CTA of the brain. NONCONTRAST HEAD CT: Comparison is made with 11/27/18. There are again seen post surgical changes in the right frontal and parietal lobes consistent with the patient's recent glioblastoma resection. There has been no significant change of the post surgical findings. There is a persistent slight leftward midline shift. The ventricles are intact. The basilar cisterns are patent. There is again seen a right craniotomy. No acute fracture is identified. The visualized paranasal sinuses are clear. The mastoid air cells are well pneumatized. IMPRESSION: No significant change in appearance of the brain compared to the prior examination. Lab Data Lab results reviewed: Yes I reviewed the patient's lab results. 11/28/18 09:26 Blood Blood Culture - Final NO GROWTH 120 HOURS 11/28/18 09:14 Blood Blood Culture - Final NO GROWTH 120 HOURS Laboratory Tests Range/Units 11/28/18 11/28/18 11/28/18 08:55 08:55 08:55 WBC (4.4-10.8) k/cumm 10.53 RBC (4.50-6.00) m/cumm 4.20 L Hgb (13.5-17.5) g/dL 13.6 Hct (40.0-50.0) % 39.7 L MCV (80-95) fL 94.5 MCH (27.0-33.0) pg 32.4 MCHC (32.0-36.0) g/dL 34.3 RDW (11.8-14.1) % 13.1 Plt Count (130-400) x1000/uL 305 MPV (8.0-11.0) fL 8.4 Immature Gran % 1.4 Neutrophils % 80.2 Lymphocytes % 11.3 Monocytes % 6.6 Eosinophils % 0.3 Basophils % 0.2 Absolute Neutrophils (1.2-6.7) k/cumm 8.44 H Absolute Lymphocytes (1.2-3.4) k/cumm 1.19 L Absolute Monocytes (0.11-0.7) k/cumm 0.70 Absolute Eosinophils (0.0-0.7) k/cumm 0.03 Absolute Basophils (0.0-0.2) k/cumm 0.02 Sodium (136-145) mmol/L 139 Potassium (3.5-5.1) mmol/L 3.8 Chloride (98-107) mmol/L 104 Carbon Dioxide (21.0-32.0) mmol/L 26.6 Anion Gap (3-11) mmol/L 8.4 BUN (7-18) mg/dL 15 D Creatinine (0.70-1.30) mg/dL 0.71 Estimated GFR/1.73 m2 (mL/min/1.73m2) >= 60.00 Glucose (70-100) mg/dL 80 Lactate (0.6-1.4) mmol/l 0.7 Calcium (8.5-10.1) mg/dL 8.4 L Magnesium (1.8-2.4) mg/dL Total Bilirubin (0.2-1.0) mg/dL 0.5 AST (15-37) U/L 17 ALT (12-78) U/L 27 Alkaline Phosphatase (46-116) U/L 124 H Troponin I (0.00-0.06) ng/mL Total Protein (6.4-8.2) g/dL 6.5 Albumin (3.4-5.0) g/dL 2.6 L Range/Units 11/28/18 08:55 WBC (4.4-10.8) k/cumm RBC (4.50-6.00) m/cumm Hgb (13.5-17.5) g/dL Hct (40.0-50.0) % MCV (80-95) fL MCH (27.0-33.0) pg MCHC (32.0-36.0) g/dL RDW (11.8-14.1) % Plt Count (130-400) x1000/uL MPV (8.0-11.0) fL Immature Gran % Neutrophils % Lymphocytes % Monocytes % Eosinophils % Basophils % Absolute Neutrophils (1.2-6.7) k/cumm Absolute Lymphocytes (1.2-3.4) k/cumm Absolute Monocytes (0.11-0.7) k/cumm Absolute Eosinophils (0.0-0.7) k/cumm Absolute Basophils (0.0-0.2) k/cumm Sodium (136-145) mmol/L Cancelled Potassium (3.5-5.1) mmol/L Cancelled Chloride (98-107) mmol/L Cancelled Carbon Dioxide (21.0-32.0) mmol/L Cancelled Anion Gap (3-11) mmol/L Cancelled BUN (7-18) mg/dL Cancelled Creatinine (0.70-1.30) mg/dL Cancelled Estimated GFR/1.73 m2 (mL/min/1.73m2) Cancelled Glucose (70-100) mg/dL Cancelled Lactate (0.6-1.4) mmol/l Calcium (8.5-10.1) mg/dL Cancelled Magnesium (1.8-2.4) mg/dL 2.2 Total Bilirubin (0.2-1.0) mg/dL Cancelled AST (15-37) U/L Cancelled ALT (12-78) U/L Cancelled Alkaline Phosphatase (46-116) U/L Cancelled Troponin I (0.00-0.06) ng/mL < 0.02 Total Protein (6.4-8.2) g/dL Cancelled Albumin (3.4-5.0) g/dL Cancelled ECG Data Attestation: I personally reviewed and interpreted this ECG (s) as follows: Interpretation: EKG shows sinus rhythm 81, normal axis, no acute ischemic changes HPI General Mode of arrival: EMS . Date/Time Provider Initiated Documentation: 11/28/18 08:51 . Limitations to Documentation: physical limitation (Difficulty with speech) . Information obtained by: patient, EMS, RN notes reviewed and old records reviewed . HPI Narrative: Nico Arreola is a 78-year-old man with history of glioblastoma resection at [facility] 10/25/2018 presenting to the emergency department with left-sided weakness. Patient was admitted to [facility] for 24 days after surgery, and has been at [facility] and rehab for approximately the past 2 weeks. He was doing well until 11/23/2018, when he developed twitching of the left arm and leg. He had a negative head CT at that time and was started on Decadron and Keppra and discharged. He presented to the emergency department again yesterday for worsening twitching of the left arm and leg. His Keppra dose was increased and he was again discharged. Patient was scheduled to have appointment with neurosurgery at [facility] today 1130. Per EMS, patient developed weakness of the left arm and left leg, also with left lateral gaze preference and left lateral rotation of the neck both new since last night. Has been intermittently ambulatory and eating during his stay at rehab, but worse since 11/23/2018. Related Data Home Medications Medication Instructions Recorded Confirmed aspirin 81 mg chewable tablet 81 mg PO DAILY 02/23/18 11/28/18 cilostazol 100 mg tablet 100 mg PO BID 02/23/18 11/28/18 omeprazole 40 mg capsule,delayed 40 mg PO DAILY PRN cap 02/23/18 11/28/18 release psyllium seed (sugar) oral powder 1 tbs PO DAILY PRN gm 02/23/18 11/28/18 dexamethasone [Decadron] See Rx Instructions .ROUTE 11/23/18 11/28/18 .COMPLEX #14 tab lisinopril-hydrochlorothiazide 1 tab PO DAILY 11/23/18 11/28/18 [Zestoretic] prochlorperazine maleate 10 mg PO Q8H PRN #6 tab 11/23/18 11/28/18 [Compazine] levetiracetam [Keppra] 1,000 mg PO BID 30 Days #60 tab 11/27/18 11/28/18 potassium chloride 40 meq PO DAILY 11/27/18 11/28/18 Previous Rx's Medication Instructions Recorded dexamethasone [Decadron] See Rx Instructions .ROUTE 11/23/18 .COMPLEX #14 tab prochlorperazine maleate 10 mg PO Q8H PRN #6 tab 11/23/18 [Compazine] levetiracetam [Keppra] 1,000 mg PO BID 30 Days #60 tab 11/27/18 Allergies Allergy/AdvReac Type Severity Reaction Status Date / Time venom-honey bee Allergy Severe Swelling Unverified 11/28/18 13:47 [bee venom (honey bee)] Penicillins Allergy Unverified 11/28/18 13:47 General DEMI: 2 Review of Systems Review of Systems Constitutional: fever yesterday per EMS Eyes: denies eye pain ENT: denies facial pain, dental pain, sore throat Cardiovascular: denies chest pain Respiratory: denies SOB GI: denies abdominal pain, vomiting, diarrhea : denies flank pain MSK: denies back pain, neck pain Skin: denies rash Neuro: denies headaches, numbness, reports weakness PFSH Medical History Peripheral arterial occlusive disease (Acute) HTN (hypertension) (Chronic) Social History Smoking/Tobacco Use Status: Current every day Tobacco Type: cigarettes Second Hand Exposure: Yes Alcohol Intake: current Alcohol Intake frequency: holidays/special occasions only Alcohol type: hard liquor Drug use: Never Substance use type: does not use Details: Pt is not only smoking a lot of cigeretts but is chewing nicodine gum. current occupation: [employer] Pets and animals: Yes Pets and animals: cat(s) Frequency: does not exercise Macrina/[employer]ist: Yazidism Special macrina needs: No Do you feel safe at home: Yes Do you feel safe in your relationship?: Yes Exam Narrative Exam Narrative: Constitutional: ill-appearing, pleasant, conversing in whisper HENT: head atraumatic/normocephalic/normal inspection, mucous membranes moist Eyes: conjunctiva normal, sclera normal, pupils 3mm b/l, extraocular movements intact Neck: no stridor, normal ROM, trachea midline Chest: normal inspection Resp: normal work of breathing, LCTAB Cardio: normal rate, normal rhythm, no murmur appreciated GI: abdomen soft, non-tender, non-distended Back: normal inspection, no rash Skin: warm, dry, normal color, no rash Neuro: alert, not altered but does seem to have some difficulty following commands, cranial nerves II through XII intact, motor 3 out of 5 left upper extremity, patient does not voluntarily move left lower extremity at all, frequent muscle twitching of the left lower extremity more than the left upper extremity, normal neurologic exam of the right upper and lower extremities, normal tone. Ext: no edema
[2018-11-28 09:05] LABS: Lactate-non-spesis 0.7 mmol/l (0.6-1.4)
[2018-11-28 09:10] LABS: Abs Immature Grans 0.15 k/cumm (0.0-0.09); Absolute Basophil Count 0.02 k/cumm (0.0-0.2); Absolute Eosinophil Count 0.03 k/cumm (0.0-0.7); Absolute Lymphocyte Count 1.19 k/cumm (1.2-3.4); Absolute Neutrophil Count 8.44 k/cumm (1.2-6.7); Basophils % 0.2; Eosinophils % 0.3; HCT 39.7 % (40.0-50.0); HGB 13.6 g/dL (13.5-17.5); Immature Grans % 1.4; Lymphocytes % 11.3; Mean Corp. HGB Concentration 34.3 g/dL (32.0-36.0); Mean Corpuscular Hemoglobin 32.4 pg (27.0-33.0); Mean Corpuscular Volume 94.5 fL (80-95); Mean Platelet Volume 8.4 fL (8.0-11.0); Monocytes % 6.6; Neutrophils % 80.2; Platelet Count 305 x1000/uL (130-400); RBC Distribution Width 13.1 % (11.8-14.1); White Blood Cell Count 10.53 k/cumm (4.4-10.8)
[2018-11-28] MEDS: LORazepam 2 MG/ML VIAL IVP (09:16)
[2018-11-28] MEDS: levETIRAcetam 1,000 MG in Normal Saline 100 ML 400 MG IVPB (09:17)
[2018-11-28 09:25] LABS: ALT 27 U/L (12-78); AST 17 U/L (15-37); Albumin 2.6 g/dL (3.4-5.0); Alkaline Phosphatase 124 U/L (46-116); Anion Gap 8.4 mmol/L (3-11); BUN 15 mg/dL (7-18); Bilirubin, Total 0.5 mg/dL (0.2-1.0); CO2 26.6 mmol/L (21.0-32.0); CREATININE 0.71 mg/dL (0.70-1.30); Calcium 8.4 mg/dL (8.5-10.1); Chloride 104 mmol/L (98-107); Glucose 80 mg/dL (70-100); Potassium 3.8 mmol/L (3.5-5.1); Sodium 139 mmol/L (136-145); Total Protein 6.5 g/dL (6.4-8.2)
[2018-11-28 09:47] LABS: Magnesium 2.2 mg/dL (1.8-2.4)
[2018-11-28 09:54] LABS: Troponin I < 0.02 ng/mL (0.00-0.06)
--- NOTE | 2018-11-28 10:10 | DI.RAD_ITS ---
SYMPTOM/DIAGNOSIS: POSSIBLE ASPIRATION AP CHEST: Comparison is made with 11/27/18. Heart size and pulmonary vasculature are within normal limits. No focal infiltrates, effusions or pneumothoraces are identified. Degenerative changes are seen in the spine. IMPRESSION: No acute pulmonary process.
--- NOTE | 2018-11-28 10:17 | DI.CT_ITS ---
SYMPTOM/DIAGNOSIS: LT HEMIPARESIS, LT EXT TWITCHING HEAD AND NECK CTA: CT angiography was performed with multi slice acquisition and multi planar and 3D reconstruction. CT angiography of the head and neck was performed. There is suboptimal opacification of the arteries noted. NECK: The common carotid arteries are unremarkable without evidence of dissection, occlusion or significant stenosis. The external carotid arteries are unremarkable without evidence of occlusion or significant stenosis. There is atherosclerosis seen in the origin of the left internal carotid artery but no significant stenosis is seen. No occlusion is present. There is narrowing of the origin of the right internal carotid artery of approximately 60%. The vertebral arteries are unremarkable without evidence of occlusion or significant stenosis. There are degenerative changes in the cervical spine. The lung apices show no acute abnormality. IMPRESSION: 1. 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 There is approximately 60% stenosis noted. HEAD: The internal carotid arteries show no significant stenosis, occlusion or aneurysm. The anterior cerebral arteries are unremarkable without evidence of aneurysm, occlusion or stenosis. The middle cerebral arteries are unremarkable without evidence of occlusion or significant stenosis. The posterior cerebral arteries show no evidence of significant stenosis, occlusion or aneurysm. The basilar artery is unremarkable without evidence of aneurysm, dissection or significant stenosis. IMPRESSION: Normal CTA of the brain. NONCONTRAST HEAD CT: Comparison is made with 11/27/18. There are again seen post surgical changes in the right frontal and parietal lobes consistent with the patient's recent glioblastoma resection. There has been no significant change of the post surgical findings. There is a persistent slight leftward midline shift. The ventricles are intact. The basilar cisterns are patent. There is again seen a right craniotomy. No acute fracture is identified. The visualized paranasal sinuses are clear. The mastoid air cells are well pneumatized. IMPRESSION: No significant change in appearance of the brain compared to the prior examination. The findings were discussed with Dr Jacki Esparza of the ER on the date of the examination.
== END 2018-11-28 19:34 ==
LOC: ER 09:25
PROVIDERS: Emergency Provider Student in an Organized Health Care Education/Training Program; PCP Family Medicine
DX: R53.1 Weakness (principal); R56.9 Unspecified convulsions; I65.21 Occlusion and stenosis of right carotid artery; C71.9 Malignant neoplasm of brain, unspecified; Z98.890 Other specified postprocedural states
CPT/HCPCS: 36410; 36415; 70496; 70498; 80053; 87040; 93005; 96365; 96375; 99285; 70450; 71045; 83605; 83735; 84484; 85025; 93010; J1953; J2060

== ENCOUNTER 2018-12-29 09:02 | Inpatient (IN) | payer MEDICARE, BC, SELFPAY ==
[2018-12-29] VITALS (85 sets, daily range): BP systolic 117–180; BP diastolic 59–101; PULSE 0–109; RESP 13–28; TEMP 36.4–37.7; O2SAT 85–96
--- NOTE | 2018-12-29 09:21 | DI.CT_ITS ---
SYMPTOM/DIAGNOSIS: WEAKNESS NONCONTRAST HEAD CT: Comparison is made with 11/27/18 and 11/28/18. There are again seen post surgical changes of a right craniotomy with postoperative changes for glioblastoma resection. There has been interval decrease in size of the fluid density beneath the bone flap compared to 11/28/18. There has also been further evaluation of the area of encephalomalacia involving the right frontal lobe. Since the prior examination, there has been decreased mass effect in the anterior cranial fossa. There has been resolution of the right to left midline shift since 11/28/18. The ventricles appear intact. No intracranial hemorrhage or acute mass effect is identified. No skull fracture is appreciated. The visualized paranasal sinuses are clear as are the mastoid air cells. IMPRESSION: Evolving postoperative changes from a reported glioblastoma resection. There has been resolution of the mass effect in the right frontal lobe. There has also been resolution of the previously noted right to left midline shift. If there is concern for residual or recurrent tumor, MRI should be considered for further evaluation.
--- NOTE | 2018-12-29 09:21 | DI.RAD_ITS ---
SYMPTOM/DIAGNOSIS: COUGH PA AND LATERAL CHEST: Comparison is made with 12/09/28. Heart size and pulmonary vasculature are stable and within normal limits. No focal consolidating infiltrates, effusions or pneumothoraces are identified. IMPRESSION: No definite acute pulmonary process.
[2018-12-29 09:48] LABS: Abs Immature Grans 0.71 k/cumm (0.0-0.09); Absolute Basophil Count 0.04 k/cumm (0.0-0.2); Absolute Lymphocyte Count 0.91 k/cumm (1.2-3.4); Absolute Monocyte Count 0.63 k/cumm (0.11-0.7); Basophils % 0.3; HCT 42.7 % (40.0-50.0); HGB 14.9 g/dL (13.5-17.5); Lymphocytes % 7.4; Mean Corp. HGB Concentration 34.9 g/dL (32.0-36.0); Mean Corpuscular Hemoglobin 32.5 pg (27.0-33.0); Mean Corpuscular Volume 93.2 fL (80-95); Mean Platelet Volume 9.4 fL (8.0-11.0); Monocytes % 5.1; Neutrophils % 81.4; Platelet Count 133 x1000/uL (130-400); RBC 4.58 m/cumm (4.50-6.00); RBC Distribution Width 15.2 % (11.8-14.1); White Blood Cell Count 12.29 k/cumm (4.4-10.8)
--- NOTE | 2018-12-29 09:48 | W.ED.GENAD ---
Discharge Plan Discharge Details Chief Complaint: GenMedical Admit Date/Time: 12/29/18 17:36 Admit Provider: Eric Whitfield Attending Provider: Eric Whitfiled Primary Care Provider: Riaz Penaloza ED Provider: Felecia Mayer Discharge Data Discharge Date/Time-TO BE ENTERED AT DEPARTURE: 12/29/18 19:05 Medical Decision Making <Dannie Kim NP - Last Filed: 12/30/18 08:08> Patient presenting to the emergency department for chief complaint of headache that occurred yesterday and some increasing weakness. [facility] is [facility] due to diagnosis of glioblastoma, left-sided weakness, and expressive aphasia. Patient states that increase of symptoms started yesterday evening with no other complaints. Patient states no vomiting, no abdominal pain, no chest pain, no difficulty breathing. Physical exam shows left-sided weakness, with pronator drift, cranial nerves II through XII intact with patient stating some loss of sensation though to lower lip but smile is equal bilateral, no facial nerve palsy is noted. Physical exam is otherwise nondiagnostic. Plan to check labs, EKG, urinalysis and reimaging of head for any possible worsening of symptoms of glioblastoma. Pending results patient given Zofran but denies any pain at this time. Review of labs show mild like leukocytosis that is been persistent and unchanged, mildly decreased sodium, chloride, and creatinine, elevated glucose of 255. Patient has indeterminate troponin of 0.09. urine specific gravity is increased with moderate amount of blood seen but otherwise no signs of infection on urinalysis, chest x-ray and head CT were reviewed along with radiologist interpretation and chest x-ray shows no acute findings and head CT shows postoperative changes from glioblastoma resection with no mass-effect, and no definite acute findings. staff reporter informed me that patient continues to have to urinate but not producing much. Bladder scan was performed and showed greater than 500 mL's of urine being retained in the bladder. Patient requesting not to have catheter placed at this time and he was given a urinal to attempt to drain his bladder. Patient was unable to drain his bladder and rediscussed Rodriguez catheter which he hesitantly agreed to but I do feel that this would make patient feel more comfortable. Plan to check second troponin at 3-hour dee and discuss with family treatment options and or consider palliative/hospice consultation Second troponin reviewed at 0.15 which is increased but still in the indeterminate range. Patient continues to deny any chest pain. Given that this is increasing I thoroughly discussed with family possible options but not sure if patient is even a appropriate candidate for [employer] or stenting. Review of patient's documentation says that he is DNI and only wants single round of CPR if needed. Otherwise patient did not refuse any advanced treatments at this time. Did discuss with patient and family risk versus benefit and consideration of worsening glioblastoma, TIA versus stroke, and ACS/non-STEMI. Patient states that if possible he would continue to like treatments but patient and family is open to a consultation by Dr. Hopkins to discuss hospice. Did discuss with Dr. Hopkins patient's condition which she stated she would be able to see patient and family tomorrow morning. Plan to consult [facility] cardiology in regards to elevating troponin but otherwise nondiagnostic EKG findings Lab Data Lab results reviewed: Yes I reviewed the patient's lab results. ECG Data Attestation: I personally reviewed and interpreted this ECG (s) as follows: Interpretation: Sinus rhythm, rate of 99, occasional ectopic beats, no STEMI, nondiagnostic EKG. EKG reviewed with attending physician Dr. Dempsey <JADIEL Key - Last Filed: 01/01/19 08:30> Care was transitioned to myself from Florencio Kim NP with third troponin pending as well as disposition pending. Consult with [facility] fire ranger pending, EKG sent to their facility. Repeat troponin 0.18, this is up from 0.15 Spoke with [facility] cardiology, Dr. Solorzano, reviewed patients history and uptrending troponin. She feels that the troponin is beginning to plateau. Advised that this could be associated with the malignancy and not a true ACS source. However, she advised that if he began to have chest pain or symptoms of ACS and also not be a good candidate for cardiac catheterization as the patient would not be able to be anticoagulated. She advised that I speak with neurosurgery regarding anticoagulation if he is a candidate for this. Advised that should the patient continue to want to have interventions performed, an echo should be performed on Monday. Consulted with Dr. Momin with neurosurgery. She advised that anticoagulating this patient would be very high risk. She advised that the patient had a very large glioblastoma with very large resection. Discussed this with the patient and family in depth. At this point, their wish is for the patient to remain comfortable. Prefer patient to be DNR/DNI. While the patient has been intermittently confused since my time with him, he is particularly clear at this point. I am able to auscultate he would like and he reports I want to go home. He is also very concerned about being only with family and does not want to make a show of his . He does not want procedures completed, does not want to have CPR as he dont wnat any broken ribs. Family agrees with this and respect his wishes. They prefer inpatient hospitalization is as the patient has been having difficulty tolerating oral medications, I feel that this is appropriate. At this point, patient is not swallowing medications or food. Will need IV hydration and IV Keppra. I did speak with Dr. Smith who will be in tomorrow to speak with the patient and family and make plans for moving forward from here. Patient's mentation while I am in the room waxes and wanes. As he did not receive his Keppra earlier today, we will give him dose here. consulted with hospitalist who agrees to admission. He will place orders for the patient to have a palliative consult tomorrow. Family and patient again expression want to only have comfort measures. All of their questions and concerns were addressed, they are in agreement with this plan. HPI <Dannie Kim NP - Last Filed: 12/30/18 08:08> General Mode of arrival: EMS. Date/Time Provider Initiated Documentation: 12/29/18 09:04. Limitations to Documentation: language barrier. Information obtained by: patient, family, RN/MD, EMS, RN notes reviewed and old records reviewed. History of Present Illness 78 year old M presents to the emergency department with the chief complaint of Nausea, headache, Quality is described as other (Pain is resolved), and is localized to the head. Patient started experiencing this day(s) (1) and it has been constant. Patient did receive the following treatments prior to arrival, none Related Data Home Medications Medication Instructions Recorded Confirmed aspirin 81 mg chewable tablet 81 mg PO DAILY 02/23/18 12/29/18 cilostazol 100 mg tablet 100 mg PO BID 02/23/18 12/29/18 lisinopril-hydrochlorothiazide 1 tab PO DAILY 11/23/18 12/29/18 [Zestoretic] potassium chloride 10 meq PO DAILY 11/27/18 12/29/18 acetaminophen 650 mg PO Q4H PRN 12/29/18 12/29/18 dexamethasone 2 mg PO HS 12/29/18 12/29/18 dexamethasone 4 mg PO DAILY AM 12/29/18 12/29/18 escitalopram oxalate [Lexapro] 10 mg PO DAILY 12/29/18 12/29/18 furosemide 40 mg PO DAILY 12/29/18 12/29/18 levetiracetam 1,500 mg PO BID 12/29/18 12/29/18 Allergies Allergy/AdvReac Type Severity Reaction Status Date / Time venom-honey bee Allergy Severe Swelling Unverified 12/29/18 09:16 [bee venom (honey bee)] Penicillins Allergy Unverified 12/29/18 09:16 General Stated Complaint: GenMedical DEMI: 3 Review of Systems <Dannie Kim NP - Last Filed: 12/30/18 08:08> Constitutional Denies body ache(s), Denies chills, Denies fever(s) and Reports headache(s) Eyes Denies change in vision ENT Denies dizziness and Reports headache(s) Cardiovascular Denies chest pain and Denies syncope Gastrointestinal Reports nausea and Denies vomiting Neurologic Reports as per HPI, Denies dizziness, Denies syncope, Reports headache(s) and Denies sensory deficit PFSH <Dannie Kim NP - Last Filed: 12/30/18 08:08> Medical History Diplopia (Acute) Dysphagia (Acute) GBM (glioblastoma multiforme) (Chronic ~11/28/18) Goals of care, counseling/discussion (Acute) HTN (hypertension) (Chronic) 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 Sister No problems noted. Brother No problems noted. Brother No problems noted. Brother No problems noted. Son No problems noted. Son No problems noted. Son No problems noted. Social History Smoking/Tobacco Use Status: Current every day Tobacco Type: cigarettes Second Hand Exposure: Yes Alcohol Intake: current Alcohol Intake frequency: holidays/special occasions only Alcohol type: hard liquor Drug use: Never Substance use type: does not use Details: Pt is not only smoking a lot of cigeretts but is chewing nicodine gum. 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 Pets and animals: Yes Pets and animals: cat(s) What is your relationship status?: How often do you talk on the phone with friends or family?: once per week How often do you get together with friends or relatives?: three or more times per week Panel score (0-1 are the most socially isolated patients): 2 What type of physical activity do you participate in: assisted ambulation Duration: 15-30 minutes/day Frequency: 5-6 times per week Macrina/Mandaen: Nondenominational Special macrina needs: No Seatbelt use: always Do you feel safe at home: Yes Do you feel safe in your relationship?: Yes Additional Social history: was walking up until this admission for second episode of generalized seizures he said his primary goal was to go home; his sons have made his home handicapped accessible. not sure if he will regain enough strength to be able to return home. Exam <Dannie Kim NP - Last Filed: 12/30/18 08:08> Const General: cooperative, comfortable and no acute distress Orientation: alert, awake and oriented x3 HENMT Head: normal to inspection Eyes General: appearance normal, both eyes and all related structures Visual Woody: normal visual woody by confrontation Alignment and Position: alignment normal Periorbital: periorbital findings normal Eyelids: eyelids normal Conjunctivae: conjunctivae normal Pupils: PERRL, normal by confrontation and accommodation normal EOM: EOM intact bilaterally Resp Effort & Inspection: normal respiratory effort and able to speak in complete sentences Auscultation: clear to auscultation bilaterally Cardio Rate: regular rate Rhythm: regular rhythm Heart Sounds: S1 normal, no click, no gallops, no murmurs and no rubs GI Palpation: soft, no hepatosplenomegaly, no hepatosplenomegaly, no masses, no pulsatile masses, not rigid, no splenomegaly and nontender Percussion: normal to percussion Auscultation: normal bowel sounds Neuro General: alert, awake, oriented x3, moves all extremities, CN's II-XI intact bilaterally and confused Cranial Nerves: PERRL, accommodation normal, EOM intact bilaterally, no nystagmus, facial strength normal, tongue midline and able to rotate head bilaterally Speech: expressive aphasia Motor: no fasciculations, pronator drift pronator drift of left upper extremity and strength abnormal (left side) Course <Dannie Kim NP - Last Filed: 12/30/18 08:08> Vital Signs Temperature 36.4 C L 12/29/18 09:06 Pulse 99 H 12/29/18 09:06 Respiratory Rate 16 12/29/18 09:06 Blood Pressure 180/90 H 12/29/18 09:06 Pulse Oximetry 93 L 12/29/18 09:06 Temperature 36.4 C L 12/29/18 09:06 Temperature Source Temporal Artery Scan 12/29/18 09:06 Pulse 99 H 12/29/18 09:06 Respiratory Rate 16 12/29/18 09:06 Respiratory Effort 12/29/18 09:06 Blood Pressure 180/90 H 12/29/18 09:06 Pulse Oximetry 93 L 12/29/18 09:06 Oxygen Delivery Method Room Air 12/29/18 09:06 Oxygen Flow Rate 0 12/29/18 09:06 Sign Out <Dannie Kim NP - Last Filed: 12/30/18 08:08> Sign Out Data: Sign Out Comment: Patient signed out to JADIEL Portillo pending third troponin, and [facility] cardiology consult to see if patient is appropriate candidate for any interventions with rising troponin. Patient may also need hospice consult placed as Dr. Smith has agreed to see patient tomorrow morning at 8 AM depending on disposition. Last updated by Dannie Kim NP at 12/29/18 16:01
[2018-12-29] MEDS: Ondansetron 4 MG/2 ML VIAL IVP (09:56)
[2018-12-29 10:06] LABS: ALT 56 U/L (12-78); AST 16 U/L (15-37); Alkaline Phosphatase 73 U/L (46-116); Anion Gap 9.5 mmol/L (3-11); BUN 26 mg/dL (7-18); Bilirubin, Total 0.7 mg/dL (0.2-1.0); CO2 28.5 mmol/L (21.0-32.0); CREATININE 0.67 mg/dL (0.70-1.30); Calcium 8.6 mg/dL (8.5-10.1); Chloride 96 mmol/L (98-107); Glucose 255 mg/dL (70-100); Immature Grans % 5.8; Lipase 125 U/L (73-393); Magnesium 1.8 mg/dL (1.8-2.4); Potassium 4.1 mmol/L (3.5-5.1); Sodium 134 mmol/L (136-145); Total Protein 6.5 g/dL (6.4-8.2)
[2018-12-29 10:10] LABS: Troponin I 0.09 ng/mL (0.00-0.06)
[2018-12-29 10:18] LABS: Bilirubin Negative (Negative); Blood Moderate (Negative); Clarity Clear (Clear); Glucose 500 mg/dL (Negative); Ketones Negative (Negative); Leukocyte Esterase Negative (Negative); Nitrite Negative (Negative); Specific Gravity >= 1.030 (1.005-1.025); Urobilinogen 0.2 EU/dL (Up TO 0.2)
[2018-12-29 10:27] LABS: Bacteria Negative HPF (Negative); C & S Indicated? No; Casts Negative LPF (Negative); Crystals Moderate Amorphous HPF (Negative); Epithelial Cells Few HPF (Negative); Mucus Moderate (Negative); WBC 0-2 HPF (0-5)
--- NOTE | 2018-12-29 10:38 | DI.VRAD_ITS ---
EXAM: CT Head Without Contrast EXAM DATE/TIME: 12/29/2018 9:24 AM CLINICAL HISTORY: 78 years old, male; Altered mental status/memory loss and weakness, extremity; Bilateral; Confusion or disorientation TECHNIQUE: Imaging protocol: Axial computed tomography images of the head without contrast. Coronal and sagittal reformatted images were created and reviewed. Radiation optimization: All CT scans at this facility use at least one of these dose optimization techniques: automated exposure control; mA and/or kV adjustment per patient size (includes targeted exams where dose is matched to clinical indication); or iterative reconstruction. COMPARISON: CT HEAD WO 11/28/2018 9:45 AM FINDINGS: Brain: Evolving postoperative changes after craniotomy for glioblastoma resection. A small low density fluid underneath bone flap has decreased in thickness with small amount of 5 mm thick fluid remaining. There is evolving postsurgical changes with resection cavity and encephalomalacia in right frontal lobe. Patient previously showed mass effect with partial effacement of anterior right lateral ventricle and right to left midline shift. This mass effect has resolved and in fact the septum pellucidum is now to the right of midline and there is dilatation of frontal horn of right lateral ventricle consistent with some interval development of volume loss. There is however persistent low density in the right frontal lobe and MRI would be more accurate in evaluation for any residual or recurrent tumor. There is no evidence of acute loss of vasquez-white differentiation or acute territorial infarct. There is no acute hemorrhage. Ventricles: No hydrocephalus. Bones/joints: There is right craniotomy. Sinuses: Clear. Mastoid air cells: No significant mastoid effusion. Soft tissues: Unremarkable as visualized. IMPRESSION: Postoperative changes from reported glioblastoma resection with resolved previously seen mass effect and no definite acute finding. Interval followup MRI when appropriate for tumor surveillance. Dictated and Authenticated by: Meera Cordon MD. Ordering:RAYNA Pandey MD
--- NOTE | 2018-12-29 10:39 | DI.VRAD_ITS ---
EXAM: XR Chest, 2 Views EXAM DATE/TIME: 12/29/2018 9:24 AM CLINICAL HISTORY: 78 years old, male; Other: Weakness TECHNIQUE: Imaging protocol: XR of the chest, 2 views. COMPARISON: CR XR CHEST 1V IN DI DEPT 11/28/2018 10:07 AM FINDINGS: Lungs: No consolidation. Lungs appear hyperexpanded. Pleural space: No visible pleural effusion. No pneumothorax. Heart/Mediastinum: No significant cardiomegaly. Vasculature: The aorta is calcified and unfolded. Bones/joints: Degenerative changes are present in the spine and right shoulder. IMPRESSION: No acute cardiopulmonary finding. Dictated and Authenticated by: Meera Cordon MD. Ordering:RAYNA Pandey MD
[2018-12-29] MEDS: Normal Saline 500 ML IV (11:00)
--- NOTE | 2018-12-29 11:24 | NUR.NOTE ---
Nursing Note: 510ml urine in bladder during bladder scan. TERESA Matias made aware.
[2018-12-29] MEDS: Lidocaine 2% Jelly 11 ML SYR UR (12:16)
[2018-12-29 13:11] LABS: Troponin I 0.15 ng/mL (0.00-0.06)
[2018-12-29 16:13] LABS: Troponin I 0.18 ng/mL (0.00-0.06)
--- NOTE | 2018-12-29 17:53 | W.PM.HP.N ---
Date of service: 12/29/18 Time of Service: 17:53 Assessment and Plan (1) Altered mental state: Start date: 12/29/18 Current visit: Yes Status: Acute This is a 78-year-old gentleman with a craniotomy in October 2018 according to the with debulking of a right large glioblastoma. The evening prior to admission the patient began to have increased seizure activity with progressive weakness on his left side which was less severe prior to this event. states that he could ambulate with a walker independently prior to this event. His weakness persisted and he was also more confused talking the to bring him to the ED for evaluation. He was found to have increase in his troponins with possible acute coronary syndrome though limited because [facility] also stated the troponins could have been elevated secondary to his tumor. He did have retrosternal chest pressure with his seizure which is typical according to the and he has no complaints of pain now. There is no acute skin ischemic changes on EKG. He is not a candidate for further interventions because of his advanced tumor which is not curable and his recent surgery. He will be admitted with cardiac monitoring and lab monitoring as well as reevaluation for home care on hospice with palliative care consultation and possible hospice admission be accomplished with Dr. Hopkins in the morning. Qualifiers: Altered mental status type: transient alteration of awareness Qualified Code(s): R40.4 - Transient alteration of awareness (2) ACS (acute coronary syndrome): Start date: 12/29/18 Current visit: Yes Status: Acute Cardiac troponins have been trended and have plateaued. Cardiac monitoring will be continued overnight. He is asymptomatic presently. (3) GBM (glioblastoma multiforme): Current visit: No Status: Chronic Status post debulking recently and outpatient to advance to palliative care with DNR/DNI status. Overall he is decompensating and his wants him kept comfortable with no aggressive interventions. (4) Hyperglycemia, drug-induced: Start date: 12/29/18 Current visit: Yes Status: Acute This may be secondary to patient's steroid treatment and stress with coverage of before meal and bedtime glucometers during his hospital stay. Long-term at home this may not require treatment. History of Present Illness Chief Complaint: Seizure at home with increased left-sided weakness and confusion Narrative: This is a 78-year-old gentleman with a large glioblastoma on the right side status post resection of this tumor with debulking in October 2018 and on anti-seizure meds chronically. At home the evening prior to admission the patient had diffuse tremors and seizure-like activity with increased left-sided weakness compared to his baseline and more difficulty swallowing along with confusion with altered mental status. He would have lucid conversations at times and at times wander in conversation with no true expressive or receptive a aphasia. During my conversation with him, while interviewing him and his he would answer questions appropriately with his eyes closed and with simple answers. The states that when he does have seizures he has retrosternal discomfort which is like heartburn and a pressure sensation under his lower sternum. He had this with his seizure activity last night with associated nausea. He also has increased problems swallowing presently. In the ED his evaluation revealed elevated troponins but no acute EKG changes. He was decided he was not a candidate for catheterization or anticoagulation because of his recent surgery and his tumor with his CODE STATUS changed to DNR/DNI and discussion of palliative care with hospice evaluation in the morning. Overnight he will be observed and kept comfortable with her troponins trended until plateaued and cardiac monitoring. If he remains stable cardiac monitoring can be discontinued while continuing evaluation of his change in status. His oral meds will be continued as best he can swallow with modified diet. Review of Systems Review of Systems 13 point review of systems otherwise unrevealing or stable and as per HPI. [facility] [place] [place] Medical History (Updated 12/30/18 @ 00:50 by Eric Whitfield) HTN (hypertension) (Chronic) Peripheral arterial occlusive disease (Acute) Surgical History (Updated 12/30/18 @ 00:32 by Eric Whitfield) Colonoscopy - IV Sedation H/O vasectomy (Acute) History of surgical removal of pilonidal cyst (Acute) S/P skin cancer resection (Acute) Family History Mother No problems noted. Father No problems noted. Sister No problems noted. Brother No problems noted. Brother No problems noted. Brother No problems noted. Son No problems noted. Son No problems noted. Son No problems noted. Social History Smoking/Tobacco Use Status: Current every day Tobacco Type: cigarettes Second Hand Exposure: Yes Alcohol Intake: current Alcohol Intake frequency: holidays/special occasions only Alcohol type: hard liquor Drug use: Never Substance use type: does not use Details: Pt is not only smoking a lot of cigeretts but is chewing nicodine gum. current occupation: [employer] Pets and animals: Yes Pets and animals: cat(s) Frequency: does not exercise Macrina/Hoahaoism: Presybeterian Special macrina needs: No Do you feel safe at home: Yes Do you feel safe in your relationship?: Yes Meds Home Medications Medication Instructions Recorded Confirmed Type aspirin 81 mg chewable tablet 81 mg PO DAILY 02/23/18 12/29/18 History cilostazol 100 mg tablet 100 mg PO BID 02/23/18 12/29/18 History lisinopril-hydrochlorothiazide 1 tab PO DAILY 11/23/18 12/29/18 History [Zestoretic] potassium chloride 10 meq PO DAILY 11/27/18 12/29/18 History acetaminophen 650 mg PO Q4H PRN 12/29/18 12/29/18 History dexamethasone 2 mg PO HS 12/29/18 12/29/18 History dexamethasone 4 mg PO DAILY AM 12/29/18 12/29/18 History escitalopram oxalate [Lexapro] 10 mg PO DAILY 12/29/18 12/29/18 History furosemide 40 mg PO DAILY 12/29/18 12/29/18 History levetiracetam 1,500 mg PO BID 12/29/18 12/29/18 History Allergies Allergy/AdvReac Type Severity Reaction Status Date / Time venom-honey bee Allergy Severe Swelling Unverified 12/29/18 09:16 [bee venom (honey bee)] Penicillins Allergy Unverified 12/29/18 09:16 Exam Narrative Exam Narrative: General: Patient appears appropriate for age lying in bed with his head and a 45 degree angle. He is wanted to person but not necessary to place or time. He is in no acute distress. He answers questions with 1-2 word answers with his eyes closed. The nurse reports that he has wandering conversation at times. HEENT: Normocephalic with postsurgical scar over the scalp from craniotomy. Eyes with pupils equal reactive light symmetrically and extraocular movement intact. Sclera anicteric. Oropharynx with moist oral mucosa. Ears normal. Neck: Supple without JVD or auscultated bruits. Lungs: Fair aeration with clear breath sounds and no focalizing rales or rhonchi. Heart: Regular rate and rhythm with no appreciable murmurs or gallops. Distant heart sounds. Back: Posture without CVA tenderness. Abdomen: Soft, slightly protuberant with obese contour and nontender to palpation. No palpable hepatosplenomegaly. Bowel sounds positive all quadrants. Genitalia and rectal exam: Deferred. Extremities: 3+ pitting edema left foot and ankle and 2+ pitting edema right foot and ankle with no clubbing or cyanosis. No joint swelling. All joints have fair range of motion. Skin: Pale, warm and dry. Neuro: Patient is able to move his left upper and lower extremity on demand and against gravity only. Right side appears to have normal strength and motion. No facial droop, cranial nerves II through XII appear to be grossly intact. Results Imaging Imaging Studies: EXAM: XR Chest, 2 Views EXAM DATE/TIME: 12/29/2018 9:24 AM CLINICAL HISTORY: 78 years old, male; Other: Weakness TECHNIQUE: Imaging protocol: XR of the chest, 2 views. COMPARISON: CR XR CHEST 1V IN DI DEPT 11/28/2018 10:07 AM FINDINGS: Lungs: No consolidation. Lungs appear hyperexpanded. Pleural space: No visible pleural effusion. No pneumothorax. Heart/Mediastinum: No significant cardiomegaly. Vasculature: The aorta is calcified and unfolded. Bones/joints: Degenerative changes are present in the spine and right shoulder. IMPRESSION: No acute cardiopulmonary finding. Dictated and Authenticated by: Meera Cordon MD. EXAM: CT Head Without Contrast EXAM DATE/TIME: 12/29/2018 9:24 AM CLINICAL HISTORY: 78 years old, male; Altered mental status/memory loss and weakness, extremity; Bilateral; Confusion or disorientation TECHNIQUE: Imaging protocol: Axial computed tomography images of the head without contrast. Coronal and sagittal reformatted images were created and reviewed. Radiation optimization: All CT scans at this facility use at least one of these dose optimization techniques: automated exposure control; mA and/or kV adjustment per patient size (includes targeted exams where dose is matched to clinical indication); or iterative reconstruction. COMPARISON: CT HEAD WO 11/28/2018 9:45 AM FINDINGS: Brain: Evolving postoperative changes after craniotomy for glioblastoma resection. A small low density fluid underneath bone flap has decreased in thickness with small amount of 5 mm thick fluid remaining. There is evolving postsurgical changes with resection cavity and encephalomalacia in right frontal lobe. Patient previously showed mass effect with partial effacement of anterior right lateral ventricle and right to left midline shift. This mass effect has resolved and in fact the septum pellucidum is now to the right of midline and there is dilatation of frontal horn of right lateral ventricle consistent with some interval development of volume loss. There is however persistent low density in the right frontal lobe and MRI would be more accurate in evaluation for any residual or recurrent tumor. There is no evidence of acute loss of vasquez-white differentiation or acute territorial infarct. There is no acute hemorrhage. Ventricles: No hydrocephalus. Bones/joints: There is right craniotomy. Sinuses: Clear. Mastoid air cells: No significant mastoid effusion. Soft tissues: Unremarkable as visualized. IMPRESSION: Postoperative changes from reported glioblastoma resection with resolved previously seen mass effect and no definite acute finding. Interval followup MRI when appropriate for tumor surveillance. Dictated and Authenticated by: Meera Cordon MD. Labs : 12/29/18 09:30 12/29/18 09:30 Laboratory Results - last 24 hr 12/29/18 12/29/18 12/29/18 09:30 09:30 10:12 WBC 12.29 H RBC 4.58 Hgb 14.9 Hct 42.7 MCV 93.2 MCH 32.5 MCHC 34.9 RDW 15.2 H Plt Count 133 MPV 9.4 Immature Gran % 5.8 Neutrophils % 81.4 Lymphocytes % 7.4 Monocytes % 5.1 Eosinophils % 0.0 Basophils % 0.3 Absolute Neutrophils 10.00 H Absolute Lymphocytes 0.91 L Absolute Monocytes 0.63 Absolute Eosinophils 0.00 Absolute Basophils 0.04 Sodium 134 L Potassium 4.1 Chloride 96 L Carbon Dioxide 28.5 Anion Gap 9.5 BUN 26 H Creatinine 0.67 L Estimated GFR/1.73 m2 >= 60.00 Glucose 255 H Calcium 8.6 Magnesium 1.8 Total Bilirubin 0.7 AST 16 ALT 56 Alkaline Phosphatase 73 Troponin I 0.09 H* Total Protein 6.5 Albumin 3.0 L Lipase 125 Urine Color Yellow Urine Clarity Clear Urine pH 6.0 Ur Specific Donnelly >= 1.030 H Urine Protein 100 H Urine Ketones Negative Urine Blood Moderate H Urine Nitrite Negative Urine Bilirubin Negative Urine Urobilinogen 0.2 Ur Leukocyte Esterase Negative Urine RBC 5-10 H Urine WBC 0-2 Ur Epithelial Cells Few Urine Crystals Moderate amorphous Urine Bacteria Negative Urine Casts Negative Urine Mucus Moderate Ur Culture Indicated? No Urine Glucose 500 H 12/29/18 12/29/18 12:25 15:35 WBC RBC Hgb Hct MCV MCH MCHC RDW Plt Count MPV Immature Gran % Neutrophils % Lymphocytes % Monocytes % Eosinophils % Basophils % Absolute Neutrophils Absolute Lymphocytes Absolute Monocytes Absolute Eosinophils Absolute Basophils Sodium Potassium Chloride Carbon Dioxide Anion Gap BUN Creatinine Estimated GFR/1.73 m2 Glucose Calcium Magnesium Total Bilirubin AST ALT Alkaline Phosphatase Troponin I 0.15 H* 0.18 H* Total Protein Albumin Lipase Urine Color Urine Clarity Urine pH Ur Specific Donnelly Urine Protein Urine Ketones Urine Blood Urine Nitrite Urine Bilirubin Urine Urobilinogen Ur Leukocyte Esterase Urine RBC Urine WBC Ur Epithelial Cells Urine Crystals Urine Bacteria Urine Casts Urine Mucus Ur Culture Indicated? Urine Glucose Last Vital Signs Temp 36.4 C L 12/29/18 09:06 Pulse 89 12/29/18 16:46 Resp 21 12/29/18 16:50 BP 147/83 H 12/29/18 16:46 Pulse Ox 92 L 12/29/18 16:50
[2018-12-29 20:33] LABS: Magnesium 1.8 mg/dL (1.8-2.4); TSH (W/Ref FT4) 0.44 uIU/mL (0.358-3.74)
[2018-12-29 20:37] LABS: Troponin I 0.18 ng/mL (0.00-0.06)
[2018-12-29] MEDS: Normal Saline 1,000 ML 125 ML IV (20:45)
[2018-12-29] MEDS: Normal Saline Flush 10 ML SYR IVP (20:51)
[2018-12-29] MEDS: levETIRAcetam Oral Solution 100 MG/ML 1500 MG PO (21:47)
[2018-12-29] MEDS: Cilostazol 100 MG TAB PO (21:47)
[2018-12-29] MEDS: Dexamethasone 1 MG TAB 2 MG PO (21:47)
[2018-12-29] MEDS: Insulin Aspart 300 UNITS/3 ML PEN SC (22:41)
[2018-12-30] VITALS (123 sets, daily range): BP systolic 63–143; BP diastolic 33–68; PULSE 61–117; RESP 14–29; TEMP 37.3–38.3; O2SAT 77–99
[2018-12-30] MEDS: Normal Saline 1,000 ML 125 ML IV (03:40)
[2018-12-30] MEDS: Dexamethasone 4 MG TAB PO (06:09)
[2018-12-30 07:41] LABS: HCT 35.3 % (40.0-50.0); HGB 12.2 g/dL (13.5-17.5); Mean Corp. HGB Concentration 34.6 g/dL (32.0-36.0); Mean Corpuscular Hemoglobin 32.5 pg (27.0-33.0); Mean Corpuscular Volume 94.1 fL (80-95); Mean Platelet Volume 9.3 fL (8.0-11.0); Platelet Count 114 x1000/uL (130-400); RBC 3.75 m/cumm (4.50-6.00); RBC Distribution Width 15.2 % (11.8-14.1); White Blood Cell Count 6.22 k/cumm (4.4-10.8)
--- NOTE | 2018-12-30 07:54 | PDOC.CMIN ---
Care Management Initial Assess REASON FOR HOSPITALIZATION:: ACS, Glioblastoma w/AMS, Seizure, Left Hemiparesis PAST MEDICAL HISTORY/PAST SURGICAL HISTORY:: Malignant neoplasm of brain, ischemic heart disease, transient altercation of awareness, hyperglycemia, adverse effect of unspecified drugs, peripheral arterial occlusive disease, colonscopy, vasectomy, surgical removal of pilonidal cyst, skin cancer resection PREVIOUS FUNCTIONAL STATUS/SOCIAL/FAMILY SUPPORTS:: Nico currently resides at [facility]. His Elsy and sons, reside nearby in [place], [place]. He has not previously been inpatient at [facility]. Nico is failing due to his diagnosis and is unable to stand and struggling to swallow. Anticipate end of life planning this admission. He has a supportive and loving family. CURRENT FUNCTIONAL STATUS:: Nico had moments of clarity with his family this morning; his family had a thorough Palliative Care Consult with Dr. Hopkins but Nico was not as alert at that time. Please refer to her note for more information. ADVANCE DIRECTIVES:: On file at [facility], [employer] () as agent, [employer] as Alternate. Has patient been provided with information about the portal?: No Did the patient sign up for the portal?: No CODE STATUS:: DNR/DNI INSURANCE COVERAGE / FINANCIAL ISSUES:: [employer]/BS. Medicare CURRENT HOME/COMMUNITY SERVICES/EQUIPMENT:: Resident at [facility]. 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 PATIENT/FAMILY EDUCATION NEEDS:: Review process of return to [facility]& and status options, insurance coverage. ANTICIPATED BARRIERS TO DISCHARGE:: None identified. TRANSPORTATION:: TBD by clinical need and disposition. PLAN:: Nico will continue to be closely monitored and treated. Anticipate Palliative Consult to determine level of care when Nico is ready for discharge. CM will support family and coordinate identified service supports.
[2018-12-30 07:56] LABS: ALT 41 U/L (12-78); AST 25 U/L (15-37); Albumin 2.1 g/dL (3.4-5.0); Alkaline Phosphatase 50 U/L (46-116); Anion Gap 5.2 mmol/L (3-11); BUN 19 mg/dL (7-18); Bilirubin, Total 0.9 mg/dL (0.2-1.0); CO2 28.8 mmol/L (21.0-32.0); CREATININE 0.42 mg/dL (0.70-1.30); Calcium 7.8 mg/dL (8.5-10.1); Chloride 99 mmol/L (98-107); Glucose 189 mg/dL (70-100); Potassium 3.6 mmol/L (3.5-5.1); Sodium 133 mmol/L (136-145); Total Protein 4.8 g/dL (6.4-8.2)
--- NOTE | 2018-12-30 08:24 | PGE_ITS ---
Date of Service Date of service: 12/30/18 Time of Service: 08:24 Assessment and Plan (1) Encephalopathy acute: Current visit: Yes Status: Acute Likely post-ictal. The patient is currently already improving. [place] [facility] [place] escalating his anticonvulsant therapy. Consult neurology. Keep monitoring for seizures and monitoring mental status. (2) GBM (glioblastoma multiforme): Current visit: No Status: Chronic The patient is still interested in chemo/radiation. Patient was not ready for comfort measures at the time of my talking to him. The family/patient was told this would help with his seizures and will hopefully add longer life expectancy. Palliative care consult has been placed. Continue decadron - consider increasing dose. (3) Elevated troponin: Current visit: Yes Status: Acute I question whether this is due to true ACS or could be related to mild rhabdo/seizure event. We are obtaining an echo tomorrow, repeating EKG. Will continue to monitor on tele. I see a normal nuclear stress test in May of 2017. Agree that, if this is real ACS, the patient would be a poor candidate for additional antiplatelet therapy. (4) Steroid-induced hyperglycemia: Current visit: Yes Status: Acute Continue SSI (5) Dysphagia: Current visit: Yes Status: Acute I downgraded the diet to pureed/nectar thickened fluids. Speech therapy would be consulted. Obtain CXR to ensure he did not already aspirated. (6) Seizures: Current visit: Yes Status: Acute Continue keppra. Will consult with [facility] [place] about which medication to use next. (7) Edema of both legs: Current visit: Yes Status: Acute Obtain echo and venous doppler BLE's. Avoid SCD's. (8) DVT prophylaxis: Current visit: Yes Status: Acute Avoid chemical dvt ppx due to recent brain surgery/GBM. Avoid SCD's until result of venous doppler is known (9) Discharge planning issues: Current visit: Yes Status: Acute DNR/DNI. Continues to require tele. Awaiting palliative care consult Subjective Interval history since last seen: Awaiting palliative care. Family asked to talk to me prior to this consult. They told me that the patient was being prepped for chemo/radiation that he was supposed to start next Monday. Unfortunately, he had this happen, which they worry will make him no longer a candidate for treatment, but they themselves recognize that the patient was able to regain his strength from other seizures. Patient has been somnolent, but does wake up enough to tell me he is still interested in chemo, radiation. While he evidently expressed to family that he did not want heart monitoring and tests anymore, he understands that that would mean no chemo/radiation - and he is interested in chemo/radiation, so he accepts telemetry, IVF, bloodwork, tests. He is, however, DNR/DNI and would not want a feeding tube. They are interested in correcting his COLST form. No seizures in ICU. On RA 95%, can drop down to 80's when asleep. Rodriguez in for urinary retention in ER. Family describes to me that the patient has been having difficulty swallowing and is working with a speech therapist across the street. Family is worried about the heart. We discussed that he will be getting the echo tomorrow to tell me whether or not it was truly affected or if the bloodwork is abnormal due to seizures. We spoke about the fact that, if indeed his heart was affected, then we would have to have another conversation about his prognosis. Family notes his edema has been there for several weeks. Exam Narrative Exam Narrative: General: elderly male, lethargic, arousable easily, A&Ox3, NAD, answers clearly when asked about whether or not he is still interested in chemo/radiation. HEENT: EOMI, MMM Heart: RRR with extra beats, no m/r/g Lungs: crackles at L base; otherwise, clear to auscultation B GI: abdomen is soft, nontender, nondistended Extremities: 1+ BLE edema, symmetric, no c/c; trace pedal pulses Objective Objective Clinical Data: Abnormal lab results 12/29/18 12/29/18 12/29/18 Range/Units 09:30 09:30 10:12 WBC 12.29 H (4.4-10.8) k/cumm RBC (4.50-6.00) m/cumm Hgb (13.5-17.5) g/dL Hct (40.0-50.0) % RDW 15.2 H (11.8-14.1) % Plt Count (130-400) x1000/uL Absolute Neutrophils 10.00 H (1.2-6.7) k/cumm Absolute Lymphocytes 0.91 L (1.2-3.4) k/cumm Sodium 134 L (136-145) mmol/L Chloride 96 L (98-107) mmol/L BUN 26 H (7-18) mg/dL Creatinine 0.67 L (0.70-1.30) mg/dL Glucose 255 H (70-100) mg/dL Calcium (8.5-10.1) mg/dL Troponin I 0.09 H* (0.00-0.06) ng/mL Total Protein (6.4-8.2) g/dL Albumin 3.0 L (3.4-5.0) g/dL Ur Specific [place] >= 1.030 H (1.005-1.025) Urine Protein 100 H (Negative) mg/dL Urine Blood Moderate H (Negative) Urine RBC 5-10 H (0-2) Urine Glucose 500 H (Negative) mg/dL 12/29/18 12/29/18 12/29/18 Range/Units 12:25 15:35 20:05 WBC (4.4-10.8) k/cumm RBC (4.50-6.00) m/cumm Hgb (13.5-17.5) g/dL Hct (40.0-50.0) % RDW (11.8-14.1) % Plt Count (130-400) x1000/uL Absolute Neutrophils (1.2-6.7) k/cumm Absolute Lymphocytes (1.2-3.4) k/cumm Sodium (136-145) mmol/L Chloride (98-107) mmol/L BUN (7-18) mg/dL Creatinine (0.70-1.30) mg/dL Glucose (70-100) mg/dL Calcium (8.5-10.1) mg/dL Troponin I 0.15 H* 0.18 H* 0.18 H* (0.00-0.06) ng/mL Total Protein (6.4-8.2) g/dL Albumin (3.4-5.0) g/dL Ur Specific [place] (1.005-1.025) Urine Protein (Negative) mg/dL Urine Blood (Negative) Urine RBC (0-2) Urine Glucose (Negative) mg/dL 12/30/18 12/30/18 Range/Units 06:36 06:36 WBC (4.4-10.8) k/cumm RBC 3.75 L (4.50-6.00) m/cumm Hgb 12.2 L D (13.5-17.5) g/dL Hct 35.3 L (40.0-50.0) % RDW 15.2 H (11.8-14.1) % Plt Count 114 L (130-400) x1000/uL Absolute Neutrophils (1.2-6.7) k/cumm Absolute Lymphocytes (1.2-3.4) k/cumm Sodium 133 L (136-145) mmol/L Chloride (98-107) mmol/L BUN 19 H D (7-18) mg/dL Creatinine 0.42 L (0.70-1.30) mg/dL Glucose 189 H (70-100) mg/dL Calcium 7.8 L (8.5-10.1) mg/dL Troponin I (0.00-0.06) ng/mL Total Protein 4.8 L (6.4-8.2) g/dL Albumin 2.1 L (3.4-5.0) g/dL Ur Specific [place] (1.005-1.025) Urine Protein (Negative) mg/dL Urine Blood (Negative) Urine RBC (0-2) Urine Glucose (Negative) mg/dL Vital Signs Temperature 37.4 C 12/29/18 23:29 Temperature Source Temporal Artery Scan 12/29/18 23:29 Pulse 90 12/30/18 04:00 Pulse 94 H 12/30/18 05:15 Respiratory Rate 16 12/30/18 05:15 Respiratory Effort 12/29/18 23:29 Respiratory Depth Shallow 12/29/18 23:29 Respiratory Pattern Tachypnea 12/29/18 23:29 Blood Pressure 116/56 L 12/30/18 04:00 Blood Pressure Mean 71 12/30/18 04:00 Blood Pressure Position Supine 12/29/18 23:29 Pulse Oximetry 96 12/29/18 23:29 Oxygen Delivery Method Room Air 12/29/18 23:29 Oxygen Flow Rate 0 12/29/18 23:29 Pain Level 0 12/29/18 23:29 Intake & Output 07/13/19 07/13/19 07/14/19 11:59 23:59 11:59 Intake Total 645 / 645 894.583 / 894.583 Output Total 925 / 925 325 / 325 Balance -280 / -280 569.583 / 569.583 Weight 83.6 kg 84 kg 85.5 kg Intake: IV 615 / 615 864.583 / 864.583 Oral 30 / 30 30 / 30 Output: Urine 925 / 925 325 / 325 Other: Urine Color Light Mi[place]ava Light Mi[place]ava Urine Appearance Clear Clear Comment TERESA Matias made aware. Laboratory Results WBC 6.22 k/cumm (4.4-10.8) D 12/30/18 06:36 RBC 3.75 m/cumm (4.50-6.00) L 12/30/18 06:36 Hgb 12.2 g/dL (13.5-17.5) L D 12/30/18 06:36 Hct 35.3 % (40.0-50.0) L 12/30/18 06:36 MCV 94.1 fL (80-95) 12/30/18 06:36 MCH 32.5 pg (27.0-33.0) 12/30/18 06:36 MCHC 34.6 g/dL (32.0-36.0) 12/30/18 06:36 RDW 15.2 % (11.8-14.1) H 12/30/18 06:36 Plt Count 114 x1000/uL (130-400) L 12/30/18 06:36 MPV 9.3 fL (8.0-11.0) 12/30/18 06:36 Immature Gran % 5.8 12/29/18 09:30 81.4 12/29/18 09:30 7.4 12/29/18 09:30 5.1 12/29/18 09:30 0.0 12/29/18 09:30 0.3 12/29/18 09:30 Absolute Neutrophils 10.00 k/cumm (1.2-6.7) H 12/29/18 09:30 Absolute Lymphocytes 0.91 k/cumm (1.2-3.4) L 12/29/18 09:30 Absolute Monocytes 0.63 k/cumm (0.11-0.7) 12/29/18 09:30 Absolute Eosinophils 0.00 k/cumm (0.0-0.7) 12/29/18 09:30 Absolute Basophils 0.04 k/cumm (0.0-0.2) 12/29/18 09:30 Sodium 133 mmol/L (136-145) L 12/30/18 06:36 Potassium 3.6 mmol/L (3.5-5.1) 12/30/18 06:36 Chloride 99 mmol/L (98-107) 12/30/18 06:36 Carbon Dioxide 28.8 mmol/L (21.0-32.0) 12/30/18 06:36 5.2 mmol/L (3-11) 12/30/18 06:36 BUN 19 mg/dL (7-18) H D 12/30/18 06:36 0.42 mg/dL (0.70-1.30) L 12/30/18 06:36 >= 60.00 (mL/min/1.73m2) 12/30/18 06:36 Glucose 189 mg/dL (70-100) H 12/30/18 06:36 Calcium 7.8 mg/dL (8.5-10.1) L 12/30/18 06:36 Magnesium 1.8 mg/dL (1.8-2.4) 12/29/18 20:05 0.9 mg/dL (0.2-1.0) 12/30/18 06:36 AST 25 U/L (15-37) 12/30/18 06:36 ALT 41 U/L (12-78) 12/30/18 06:36 50 U/L (46-116) 12/30/18 06:36 Cancelled 12/29/18 21:45 4.8 g/dL (6.4-8.2) L 12/30/18 06:36 2.1 g/dL (3.4-5.0) L 12/30/18 06:36 125 U/L (73-393) 12/29/18 09:30 TSH 0.44 uIU/mL (0.358-3.74) 12/29/18 20:05 Yellow (Yellow) 12/29/18 10:12 Clear (Clear) 12/29/18 10:12 6.0 (5-8) 12/29/18 10:12 Ur Specific [place] >= 1.030 (1.005-1.025) H 12/29/18 10:12 100 mg/dL (Negative) H 12/29/18 10:12 Negative mg/dL (Negative) 12/29/18 10:12 Moderate (Negative) H 12/29/18 10:12 Negative (Negative) 12/29/18 10:12 Negative (Negative) 12/29/18 10:12 0.2 EU/dL (Up TO 0.2) 12/29/18 10:12 Ur Leukocyte Esterase Negative (Negative) 12/29/18 10:12 5-10 (0-2) H 12/29/18 10:12 0-2 HPF (0-5) 12/29/18 10:12 Ur Epithelial Cells Few HPF (Negative) 12/29/18 10:12 Moderate amorphous HPF (Negative) 12/29/18 10:12 Negative HPF (Negative) 12/29/18 10:12 Negative LPF (Negative) 12/29/18 10:12 Moderate (Negative) 12/29/18 10:12 Ur Culture Indicated? No 12/29/18 10:12 500 mg/dL (Negative) H 12/29/18 10:12
[2018-12-30] MEDS: Aspirin 81 MG CHEW PO (08:43)
[2018-12-30] MEDS: Lisinopril 10 MG TAB PO (08:44)
[2018-12-30] MEDS: hydroCHLOROthiazide 12.5 MG TAB PO (08:44)
[2018-12-30] MEDS: Cilostazol 100 MG TAB PO ×2 (08:44→20:04)
[2018-12-30] MEDS: Escitalopram 10 MG TAB PO (08:44)
[2018-12-30] MEDS: Furosemide 40 MG TAB PO (08:44)
[2018-12-30] MEDS: Potassium Chloride 10 MEQ TABCR PO (08:44)
[2018-12-30] MEDS: levETIRAcetam Oral Solution 100 MG/ML 1500 MG PO (08:44)
[2018-12-30] MEDS: Insulin Aspart 300 UNITS/3 ML PEN SC ×4 (08:49→23:51)
[2018-12-30 08:59] LABS: Creatine Kinase 479 U/L (39-308)
--- NOTE | 2018-12-30 11:24 | PHARADMIT ---
Addendum entered by Hossein Larsen III 01/04/19 10:56: Nico has been transitioned to [facility]. Continuing seizure meds (Fos-phenytoin & Keppra) has Ativan drip with Morphine bolus prn. Patient is non-responsive Addendum entered by Janet Aguillon 01/01/19 09:49: Pharmacy Note Subjective EEG and MRI scheduled for today Objective FS 156, vanco trough 14.9, Bc no growth 24 hours, UC no growth 48 hours Assessment no changes to vanco dose. notes improvements. dexamethasone dose increased yesterday. neurology recommends adding depakote if more seizures Plan cont following culture results, vanco dosing Addendum entered by Hossein Larsen III 12/31/18 14:23: Pharmacy Note Subjective Patient had speech evaluation today, very dyphasic, NPO, except for sips. Surgery placed triple lumen central line yesterday. MD suspects aspiration pneumonia. Patient experiencing seizures post-op brain surgery. Objective VS-OK BP-130/56 K+3.2 Mag-1.4, H&H-11.4/33.1 WBC-5.02 Wgt- 85.5 kg no BM Assessment Vancomycin & Levaquin IV continue. Magnesium,Potassium bolus given, Keppra IV for seizures. Off pressors now Plan Hospice consult, plan to return to [facility] vs [facility] Original Note: Admission Pharmacy Clinical Review ACS, GLIOBLASTOMA W/AMS, SEIZURE (From [facility]) Code Status DNR/DNI Current Weight 85.5 kg Renally Cleared and Narrow Therapeutic Index Meds CrCl~68ml/min QTc Value / Action Taken QTC 444 BP Control, Fever BP 115/59, Afebrile Electrolytes reviewed Na++ 133, K+ 3.6, Mag 1.8 DVT Prophylaxis Cilostazol (Antiplatelet agent only), ASA 81mg Opiate Usage / Scheduled Bowel Regimen Ordered Plt/SCr for Heparin / Enoxaparin Plt 114 SCr 0.42 INR for Warfarin H/H stable, WBC/Bands H/H 12.2/35.3 WBC 6.22 Antibiotic appropriateness Cultures and Sensitivities MRSA nare pending Surgical ABX d/c within 24 hr DM control / Insulin Dosing BG 189 (Novolog scale) Heart Failure (Check EF%) (GM's, B-Block, Diuretics) IV to PO Switch Home Meds Reviewed Home Meds Not Ordered Comments Keppra dose is 1500mg BID (entered as liquid-not sure if pt has difficulty swallowing?) Many meds dc'd....family meeting, Palliative care consult placed, Neurology consult ordered
--- NOTE | 2018-12-30 11:45 | DI.RAD_ITS ---
SYMPTOM/DIAGNOSIS: CRACKLES, CONCERN FOR PNEUMONIA OR CHF PORTABLE AP CHEST: A single portable AP view was performed and compared with the day prior. Heart size and pulmonary vasculature are within normal limits. There appears to have developed bilateral basilar infiltrates. No gross effusions or pneumothoraces are identified. The bones appear intact. IMPRESSION: Bilateral basilar infiltrates. This may represent infection, aspiration or pulmonary edema. PORTABLE AP CHEST AT 633 PM: Comparison is made with earlier in the day. Since the prior examination, the bilateral basilar infiltrates have progressed, right greater than left. No effusions or pneumothoraces are identified. There has been interval placement of a left subclavian central venous catheter, the tip of the catheter is seen in good position in the right superior vena cava. No pneumothorax is identified. IMPRESSION: 1. Worsening bilateral basilar infiltrates, right greater than left. 2. Interval placement of a left subclavian central venous catheter, the tip is in good position in the superior vena cava. No pneumothorax is identified.
[2018-12-30] MEDS: Normal Saline 1,000 ML 75 ML IV (11:57)
[2018-12-30 12:09] LABS: Troponin I 0.09 ng/mL (0.00-0.06)
--- NOTE | 2018-12-30 12:26 | DI.VRAD_ITS ---
EXAM: XR Chest, 1 View EXAM DATE/TIME: 12/30/2018 11:45 AM CLINICAL HISTORY: 78 years old, male; Cough and other: Crackles TECHNIQUE: Imaging protocol: XR of the chest, 1 view. COMPARISON: CR XR CHEST 2V PA LATERAL 12/29/2018 10:23 AM FINDINGS: Lungs: Pulmonary vasculature is within normal limits. Patchy infiltrates in both lower lungs. Peribronchial thickening in the left suprahilar region. Pleural space: Unremarkable. No pleural effusion. No pneumothorax. Heart/Mediastinum: Unremarkable. No cardiomegaly. Bones/joints: Unremarkable. IMPRESSION: Patchy infiltrates in both lower lungs could represent infection, aspiration or dependent pulmonary edema. Dictated and Authenticated by: Jodie Fried MD. Ordering:KATALINA Aguilera MD
[2018-12-30] MEDS: Acetaminophen 650 MG SUPP PR (14:35)
--- NOTE | 2018-12-30 14:37 | W.PALLCONSUL ---
Date of service: 12/30/18 History of Present Illness Chief Complaint: glioblastoma, recurrent sz Narrative: I met with Nico and his in the ICU. He was very somnolent throughout my 100 minute visit, though occasionally he would wake and say a sentence, most of which made sense but not all of them in context of the conversation. He keeps his eyes closed all the time as he has severe diplopia which makes him nauseated. This is not new. On 12/29, I was asked by Florencio Kim NP in the ER to meet with Nico and his , primarily to review their understanding of his disease progression and to review treatment options. I offered to see him today, and Dr Tracey, hospitalist agreed with this consult request. His glioblastoma was diagnosed in October 2018. He has not been able to return to his home since his diagnosis due to weakness and recurrent seizures. He has yet to start chemo or radiation. He has been living in the [facility] for about 5-6 weeks, with one readmission [place] [facility] for [place] seizures in that time period. He was admitted to [facility] yesterday after a second series of seizures since his initial craniotomy for his glioblastoma. He has had a very neville road since his diagnosis. Initially, in October, in presented to the [facility] ER with symptoms concerning for a stroke. His head CT showed probable mass so he was transferred to [facility]. Further imaging revealed a tumor on the right side of his brain. He had his craniotomy on October 25. He was then in the neurological ICU at [facility] for 3 weeks. He was sent to Rehab from there and was almost ready to go home, 2 days shy of his planned discharge, when he had his first episode of uncontrollable seizures. After a prolonged stay at [facility] ER, (per his , >24 hrs), he ended up back at [facility] for 8 days then. Once his seizures were controlled, he went back to [facility] and was about to be allowed to have home visitations for up to 4-6 hrs at a time when he had this second set of seizures, leading to this admission. Note that he was also scheduled to begin his radiation and chemotherapy treatment this week. His first radiation was scheduled for Monday. Given his degree of weakness (he cannot stand and pivot; his legs collapsed under him), it is likely that this treatment will be postponed, perhaps indefinitely. I reviewed oncology notes that indicated he was supposed to start his temodar (chemo) on 12/27. This has not happened. His explained to me that he was supposed to start his temodar AFTER his first radiation dose, so she has not given it to him. She does have the medication at home. Consults Consult date: 12/30/18 Requesting physician: Dannie Kim Assessment and Plan (1) Goals of care, counseling/discussion: Current visit: Yes Status: Acute Nico has avoided hospitals all his life until October 2018. His first surgery, per his , was his craniotomy. He has stated previously that he wants no aggressive measures. His family and he agree that he would not like to have CPR or intubation. He did tell me clearly, when asked, What do you want?, I want to go home. His says they have tried to get him home twice, the first time to live, the second time to visit, but each time, he ended up having seizures. In his current state, with a PPS of 30%, I do not think he will be able to received radiation, though he has gone through with all the preliminary procedures, including making his mask, etc. He might be able to take temodar, the oral chemotherapy used in glioblastoma. There is concern, however, that he is developing aspiration pneumonia. I'm not sure how much longer he will be able to swallow pills. His does not want to proceed in any fashion without speaking to the neuro-oncologist directly. She understood that Nico would not be taking temodar if he was not getting radiation. I defer to oncology, and the hospitalist, Dr Tracey, to determine whether it is feasible and/or safe for him to start his temodar. (His reports she has the medication at home.) Earlier today, when Dr Tracey met with the sons and and Nico, he had a period of clarity and alertness. He told everyone then that he did NOT want comfort measures and wanted to pursue treatment. By the time I was seeing him, he was unable to achieve this level of clarity or alertness, unfortunately. (2) Palliative care patient: Current visit: Yes Status: Acute By symptom: Mental confusion: Dr Tracey and I discussed increasing his steroids for mental clarity and energy. Pain/discomfort: He did appear to be uncomfortable a few times and I suggested tylenol, but his says that [place] prefers not to take pain medications but just ride it through. Hyperglycemia due to steroid medication: Note that he is having some degree of hyperglycemia. I would not recommend chasing his blood sugars nor treating elevated levels with insulin. Severe generalized weakness: He may stil be partially post-ictal (though the time since seizure is getting long now). I am worried that he will not return to the level of ability he had prior to this episode. Note that he never returned to the level he was at the beginning of November. His performance ability is poor. He may not be eligible for radiation or chemo given his poor functional status. (3) GBM (glioblastoma multiforme): Current visit: No Status: Chronic Overall, his prognosis is poor. His family and he, on some level, are aware of this. Several members of his Rehab PT/OT team, the EMERGENCY MEDICAL SERVICES COORDINATOR at Rehab, and the Rehab nurses who have cared for Nico since the beginning of November shared their concerns with me last week, the day before this second episode of seizures. They told me, prior to this admission, that they were worried his tumor was progressing. They saw him getting weaker and more confused. (4) Diplopia: Current visit: Yes Status: Acute Due to his tumor, either due to edema or direct growth of the tumor. (5) Seizures: Current visit: Yes Status: Acute Was on Keppra 1500 mg bid at the Rehab. Had seziures despite this dose. Dr Tracey to work with neuro-oncology and neurology to come up with new seizure medication regimen. Note that each time he has seizures, his PPS declines. Hopefully, he will be able to become mobile again with a walker. Too soon to tell. (6) Dysphagia: Current visit: Yes Status: Acute May be developing an aspiration pneumonia. His describes to me how hard it has been recently for him to swallow. He has to concentrate on his muscles and sometimes rubs his hand on his neck to help swallow. Review of Systems Constitutional Denies body ache(s), Denies chills, Reports daytime sleepiness, Reports fatigue, Denies fever(s), Reports headache(s), Reports lethargy, Reports poor appetite, Reports snoring and Reports weakness Eyes Reports blurry vision, Reports change in vision and Reports diplopia ENT Reports dysphagia, Reports dry mouth, Reports headache(s) and Reports disequilibrium Cardiovascular Denies chest pain Respiratory Reports chest congestion and Reports snoring Comments: some audible breath sounds, consistent with snore vs upper airway secretion Gastrointestinal Reports dysphagia, Reports early satiety and Reports nausea Genitourinary Reports urinary incontinence Musculoskeletal Reports abnormal gait (was using a walker at the Rehab until this admit. now unable to stand), Reports atrophy and Reports muscle weakness Integumentary/Breasts Reports erythema (of his palms, advised this was due to his steroids) Neurologic Reports as per HPI, Reports abnormal speech, Reports abnormal gait (was using a walker at the Rehab until this admit. now unable to stand), Reports confusion, Reports headache(s), Reports memory loss, Reports convulsions, Reports seizure-like activity, Reports tremor(s) (has had tremors for years, bilateral, worse in UE, per ; father had too), Reports disequilibrium and Reports weakness Psychiatric Reports change in appetite, Reports confusion, Reports depression, Reports difficulty concentrating, Reports hopelessness, Reports memory loss and Reports hallucinations (seeing people who have before coming to get him) Endocrine Reports fatigue Hematologic/Lymphatic Reports easy bruising [facility] Medical History (Updated 12/30/18 @ 15:06 by Lelo Hopkins MD) Diplopia (Acute) Dysphagia (Acute) Goals of care, counseling/discussion (Acute) HTN (hypertension) (Chronic) Palliative care patient (Acute) Peripheral arterial occlusive disease (Acute) Tremor (Acute) Surgical History (Updated 12/30/18 @ 15:06 by Lelo Hopkins MD) Colonoscopy - IV Sedation H/O craniotomy (Acute) H/O vasectomy (Acute) History of surgical removal of pilonidal cyst (Acute) S/P skin cancer resection (Acute) Family History (Updated 12/30/18 @ 15:07 by Lelo Hopkins MD) Mother Menopausal menorrhagia Father No problems noted. Sister No problems noted. Brother No problems noted. Brother No problems noted. Brother No problems noted. Son No problems noted. Son No problems noted. Son No problems noted. Social History (Updated 12/30/18 @ 15:12 by Lelo Hopkins MD) Smoking/Tobacco Use Status: Current every day Tobacco Type: cigarettes Second Hand Exposure: Yes Alcohol Intake: current Alcohol Intake frequency: holidays/special occasions only Alcohol type: hard liquor Drug use: Never Substance use type: does not use Details: Pt is not only smoking a lot of cigeretts but is chewing nicodine gum. 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 Pets and animals: Yes Pets and animals: cat(s) What is your relationship status?: How often do you talk on the phone with friends or family?: once per week How often do you get together with friends or relatives?: three or more times per week Panel score (0-1 are the most socially isolated patients): 2 What type of physical activity do you participate in: assisted ambulation Duration: 15-30 minutes/day Frequency: 5-6 times per week Macrina/Church: [employer] Special macrina needs: No Seatbelt use: always Do you feel safe at home: Yes Do you feel safe in your relationship?: Yes Additional Social history: was walking up until this admission for second episode of generalized seizures he said his primary goal was to go home; his sons have made his home handicapped accessible. not sure if he will regain enough strength to be able to return home. Exam Const General: no acute distress, frail appearing and ill appearing Nutritional Appearance: average body habitus Orientation: awake and oriented to person Limitations: altered mental status Other: Was exhausted during my visit. Participated minimally. Unable to state his wishes other than to go home. Did tell Dr Tracey earlier in the day that he wanted to pursue chemo +/- radiation. Not in a state where he would be able to receive radiation therapy at this time. [facility] Head: other (has slight divot in his right frontal region and scar from craniotomy) Ears: hearing grossly normal bilaterally General nose exam: external nose normal Face and sinus: scar and other (some drooling out of right side of mouth) Mouth: oral mucosae normal and drooling Eyes Eyelids: other (keeps his eyes shut to avoid diplopia and accompanying nausea) Conjunctivae: conjunctivae normal Sclera: sclerae normal Neck Neck: no lymphadenopathy and no JVD Chest Chest: normal inspection of the chest Resp Effort & Inspection: able to speak in complete sentences (soft voice; only a few words at a time) and audible wheezes (come and go) Auscultation: crackles (inferiorly) bilaterally, rhonchi and wheezes Cardio Rate: tachycardic Rhythm: regular rhythm Heart Sounds: S1 normal and S2 normal GI Inspection: normal to inspection Palpation: soft Auscultation: normal bowel sounds General: other (figueroa in place) Skin General skin exam: dry skin, ecchymosis and scars Hair: male pattern alopecia Neuro General: awake (intermittently, for a minute or two at a time; slept through most of my vis) and oriented Patient Orientation: Person Cognition: abnormal cognition Speech: abnormal speech Gait: other (bedbound at this point; could not stand to pivot to transfer to chair) Motor: tremor and strength abnormal Extrem General: edema (1+) Laterality: bilateral and muscle atrophy Psych Appearance: well kempt Speech and Movement: delayed speech and restless (intermittently; looks uncomfortable intermittently) Mood: dysthymic mood Affect: blunted Attitude: cooperative Thought Process: impoverished Insight: limited Judgment: limited Results Last Vital Signs Temp 99.3 F 12/30/18 11:06 Pulse 82 12/30/18 08:01 Resp 23 12/30/18 09:00 BP 115/59 L 12/30/18 08:01 Pulse Ox 96 12/29/18 23:29 Labs : 12/30/18 06:36 12/30/18 06:36 Laboratory Results - last 24 hr 12/29/18 12/29/18 12/29/18 15:35 20:05 21:45 WBC RBC Hgb Hct MCV MCH MCHC RDW Plt Count MPV Sodium Potassium Chloride Carbon Dioxide Anion Gap BUN Creatinine Estimated GFR/1.73 m2 Glucose Calcium Magnesium 1.8 Total Bilirubin AST ALT Alkaline Phosphatase Creatine Kinase Troponin I 0.18 H* 0.18 H* Cancelled Total Protein Albumin TSH 0.44 12/30/18 12/30/18 06:36 06:36 WBC 6.22 D RBC 3.75 L Hgb 12.2 L D Hct 35.3 L MCV 94.1 MCH 32.5 MCHC 34.6 RDW 15.2 H Plt Count 114 L MPV 9.3 Sodium 133 L Potassium 3.6 Chloride 99 Carbon Dioxide 28.8 Anion Gap 5.2 BUN 19 H D Creatinine 0.42 L Estimated GFR/1.73 m2 >= 60.00 Glucose 189 H Calcium 7.8 L Magnesium Total Bilirubin 0.9 AST 25 ALT 41 Alkaline Phosphatase 50 Creatine Kinase 479 H Troponin I 0.09 H* Total Protein 4.8 L Albumin 2.1 L TSH
[2018-12-30] MEDS: Furosemide 20 MG/2 ML VIAL IVP (14:40)
[2018-12-30] MEDS: Albuterol 2.5 MG/3 ML INH SOLN VIAL UPD (14:40)
[2018-12-30] MEDS: cefTRIAXone 1 GM/50 ML BAG IVPB (14:43)
--- NOTE | 2018-12-30 14:48 | NUR.NOTE ---
Nursing Note: Increased work of breathing noted. Color dusky with diffuse lower extremity mottling. Skin on back reddened. Temp. 38.3. Tylenol 650mg IA given. Congested non-productive ineffective cough. O2 sats 77%. O2/NC applied at 2L with resulting O2 sats 83%. Dr. Tracey called to bedside. Lasix IV given. Receiving albuterol neb at present. Blood cultures being drawn. IV antibiotics to follow.
[2018-12-30] MEDS: levoFLOXacin 500 MG/100 ML BAG 100 MG IVPB (15:55)
[2018-12-30] MEDS: Normal Saline 500 ML 30 ML IV (16:50)
[2018-12-30] MEDS: Hydrocortisone SOD SUC. 100 MG VIAL IVP (17:09)
--- NOTE | 2018-12-30 17:09 | PGE_ITS ---
Date of Service Date of service: 12/30/18 Time of Service: 17:10 Subjective Interval history since last seen: S: Called to bedside due to patient's hypotension (BP down to 63/38) and a new oxygen requirement (6L). The patient is receiving IVF bolus, but no improvement in BP yet. He did spike a temp of 38.3 at 2 pm, at which point he was begun on IV vancomycin and levofloxacin. Ceftazidime is being added to the regimen now. He at the time (2pm) also had significant rhonchi - for this, he was started on nebs and received 1 dose of lasix 20 mg. CXR showed pulmonary edema +/- pneumonitis. O: Last Vital Signs Temp 38.2 C H 12/30/18 16:00 Pulse 88 12/30/18 16:30 Resp 16 12/30/18 16:31 BP 75/37 L 12/30/18 16:30 Pulse Ox 91 L 12/30/18 16:31 On physical exam, his mental status is unchanged. He is less rhonchorous now, and his lips are pink. I see no cyanosis. His O2 sat by ear probe is better than finger probe (does have PAD). He is not tachycardic, no focal pain was elicited. Stat lactate was ordered. Blood cultured ordered earlier today. Obtain stat UA/C&S. A/P: Shock - likely septic due to aspiration pneumonia in conjunction with acute on chronic adrenal insufficiency, but PE could not be excluded, given new hypoxia as well as LE edema we were already planning on working up with LE dopplers. Bolusing IVF. I called the patient's and informed her of status change and asked her to come back to the hospital. She is ok with starting pressors and placing a central line. Patient was transferred to ICU. General surgery consulted for CVL placement. Stat IV hydrocortisone is being given. Decadron increased to 4 mg BID. Start levophed. Continue empiric abx, IVF written for 1 more liter, but IV hydration is being limited by respiratory status and the fact that the patient is DNR/DNI. Prognosis poor. If the patient does have a PE causing this, he is high risk for anticoagulation. Additionally, case re increase in perceived seizure (vs myoclonic) activity was discussed with Dr Momin of [facility] [place]. She recommended increasing keppra to 1750 mg BID after 1000 mg load and increasing decadron to 4 mg PO BID. Total Critical Care Time so far 50 minutes Objective Objective Clinical Data: Abnormal lab results 12/29/18 12/30/18 12/30/18 Range/Units 20:05 06:36 06:36 RBC 3.75 L (4.50-6.00) m/cumm Hgb 12.2 L D (13.5-17.5) g/dL Hct 35.3 L (40.0-50.0) % RDW 15.2 H (11.8-14.1) % Plt Count 114 L (130-400) x1000/uL Sodium 133 L (136-145) mmol/L BUN 19 H D (7-18) mg/dL Creatinine 0.42 L (0.70-1.30) mg/dL Glucose 189 H (70-100) mg/dL Calcium 7.8 L (8.5-10.1) mg/dL Creatine Kinase 479 H (39-308) U/L Troponin I 0.18 H* 0.09 H* (0.00-0.06) ng/mL Total Protein 4.8 L (6.4-8.2) g/dL Albumin 2.1 L (3.4-5.0) g/dL Vital Signs Temperature 38.2 C H 12/30/18 16:00 Temperature Source Tympanic 12/30/18 16:00 Pulse 88 12/30/18 16:30 Pulse 98 H 12/30/18 16:31 Respiratory Rate 16 12/30/18 16:31 Respiratory Effort 12/30/18 14:00 Respiratory Depth Shallow 12/30/18 14:00 Respiratory Pattern Tachypnea 12/29/18 23:29 Blood Pressure 75/37 L 12/30/18 16:30 Blood Pressure Mean 45 12/30/18 16:30 Blood Pressure Position Supine 12/29/18 23:29 Pulse Oximetry 91 L 12/30/18 16:31 Oxygen Delivery Method Nasal Cannula 12/30/18 16:00 Oxygen Flow Rate 6 12/30/18 16:00 Pain Level 0 12/30/18 14:00 Intake & Output 12/29/18 12/30/18 12/30/18 23:59 11:59 23:59 Intake Total 645 / 645 1894.583 / 2124.000 229.417 / 2124.000 Output Total 925 / 925 325 / 1325 1000 / 1325 Balance -280 / -280 1569.583 / 799.000 -770.583 / 799.000 Weight 84 kg 85.5 kg Intake: IV 615 / 615 1864.583 / 2094.000 229.417 / 2094.000 Oral 30 30 Output: Urine 925 / 925 325 / 1325 1000 / 1325 Other: Urine Color Light Miroslava Light Miroslava Yellow Urine Appearance Clear Clear Clear Comment TERESA Matias made aware. Rodriguez catheter. Voiding Methods Indwelling Catheter Laboratory Results WBC 6.22 k/cumm (4.4-10.8) D 12/30/18 06:36 RBC 3.75 m/cumm (4.50-6.00) L 12/30/18 06:36 Hgb 12.2 g/dL (13.5-17.5) L D 12/30/18 06:36 Hct 35.3 % (40.0-50.0) L 12/30/18 06:36 MCV 94.1 fL (80-95) 12/30/18 06:36 MCH 32.5 pg (27.0-33.0) 12/30/18 06:36 MCHC 34.6 g/dL (32.0-36.0) 12/30/18 06:36 RDW 15.2 % (11.8-14.1) H 12/30/18 06:36 Plt Count 114 x1000/uL (130-400) L 12/30/18 06:36 MPV 9.3 fL (8.0-11.0) 12/30/18 06:36 Immature Gran % 5.8 12/29/18 09:30 81.4 12/29/18 09:30 7.4 12/29/18 09:30 5.1 12/29/18 09:30 0.0 12/29/18 09:30 0.3 12/29/18 09:30 Absolute Neutrophils 10.00 k/cumm (1.2-6.7) H 12/29/18 09:30 Absolute Lymphocytes 0.91 k/cumm (1.2-3.4) L 12/29/18 09:30 Absolute Monocytes 0.63 k/cumm (0.11-0.7) 12/29/18 09:30 Absolute Eosinophils 0.00 k/cumm (0.0-0.7) 12/29/18 09:30 Absolute Basophils 0.04 k/cumm (0.0-0.2) 12/29/18 09:30 Sodium 133 mmol/L (136-145) L 12/30/18 06:36 Potassium 3.6 mmol/L (3.5-5.1) 12/30/18 06:36 Chloride 99 mmol/L (98-107) 12/30/18 06:36 Carbon Dioxide 28.8 mmol/L (21.0-32.0) 12/30/18 06:36 5.2 mmol/L (3-11) 12/30/18 06:36 BUN 19 mg/dL (7-18) H D 12/30/18 06:36 0.42 mg/dL (0.70-1.30) L 12/30/18 06:36 >= 60.00 (mL/min/1.73m2) 12/30/18 06:36 Glucose 189 mg/dL (70-100) H 12/30/18 06:36 Calcium 7.8 mg/dL (8.5-10.1) L 12/30/18 06:36 Magnesium 1.8 mg/dL (1.8-2.4) 12/29/18 20:05 0.9 mg/dL (0.2-1.0) 12/30/18 06:36 AST 25 U/L (15-37) 12/30/18 06:36 ALT 41 U/L (12-78) 12/30/18 06:36 50 U/L (46-116) 12/30/18 06:36 479 U/L (39-308) H 12/30/18 06:36 0.09 ng/mL (0.00-0.06) H* 12/30/18 06:36 4.8 g/dL (6.4-8.2) L 12/30/18 06:36 2.1 g/dL (3.4-5.0) L 12/30/18 06:36 125 U/L (73-393) 12/29/18 09:30 TSH 0.44 uIU/mL (0.358-3.74) 12/29/18 20:05 Yellow (Yellow) 12/29/18 10:12 Clear (Clear) 12/29/18 10:12 6.0 (5-8) 12/29/18 10:12 Ur Specific [place] >= 1.030 (1.005-1.025) H 12/29/18 10:12 100 mg/dL (Negative) H 12/29/18 10:12 Negative mg/dL (Negative) 12/29/18 10:12 Moderate (Negative) H 12/29/18 10:12 Negative (Negative) 12/29/18 10:12 Negative (Negative) 12/29/18 10:12 0.2 EU/dL (Up TO 0.2) 12/29/18 10:12 Ur Leukocyte Esterase Negative (Negative) 12/29/18 10:12 5-10 (0-2) H 12/29/18 10:12 0-2 HPF (0-5) 12/29/18 10:12 Ur Epithelial Cells Few HPF (Negative) 12/29/18 10:12 Moderate amorphous HPF (Negative) 12/29/18 10:12 Negative HPF (Negative) 12/29/18 10:12 Negative LPF (Negative) 12/29/18 10:12 Moderate (Negative) 12/29/18 10:12 Ur Culture Indicated? No 12/29/18 10:12 500 mg/dL (Negative) H 12/29/18 10:12
[2018-12-30] MEDS: Normal Saline Flush 10 ML SYR IVP ×2 (17:10→23:45)
[2018-12-30] MEDS: Normal Saline 1,000 ML 1000 ML IV (17:30)
[2018-12-30] MEDS: levETIRAcetam 1,000 MG in Normal Saline 100 ML 400 MG IVPB (17:36)
[2018-12-30 17:42] LABS: Lactate 1.6 mmol/L (0.6-1.4)
--- NOTE | 2018-12-30 19:00 | DI.VRAD_ITS ---
EXAM: XR Chest, 1 View EXAM DATE/TIME: 12/30/2018 6:28 PM CLINICAL HISTORY: 78 years old, male; Device placement; Patient HX: Post cvl placement, confirm position. TECHNIQUE: Imaging protocol: XR of the chest, 1 view. COMPARISON: SC XR PORTABLE CHEST AP 12/30/2018 11:49 AM FINDINGS: Tubes, catheters and devices: A left subclavian central venous catheter is present, with its tip overlying the region of the superior vena cava. Lungs: Airspace infiltrates in both lower lobes, with interval increased density on the right. Pleural space: Unremarkable. No pleural effusion. No pneumothorax. Heart/Mediastinum: Unremarkable. No cardiomegaly. Bones/joints: Unremarkable. IMPRESSION: 1. A left subclavian central venous catheter is present, with its tip overlying the region of the superior vena cava. No pneumothorax. 2. Airspace infiltrates in both lower lobes, denser on the right. Dictated and Authenticated by: Jodie Fried MD. Ordering:KATALINA Aguilera MD
[2018-12-30 19:46] LABS: Lactate 1.3 mmol/L (0.6-1.4)
[2018-12-30] MEDS: ACETAMINOPHEN 1,000 MG/100 ML BTL 400 MG IVPB (20:04)
[2018-12-30] MEDS: Normal Saline-STERILE FIELD 0.9% 10 ML SYR (20:05)
[2018-12-30] MEDS: Dexamethasone 4 MG/ML VIAL IVP (20:05)
[2018-12-30] MEDS: cefTAZidime 2,000 MG in Normal Saline 100 ML 200 MG IVPB (20:06)
[2018-12-30] MEDS: Lidocaine 1% Multi-Dose 50 ML VIAL (21:45)
[2018-12-30 22:47] LABS: Lactate 1.6 mmol/L (0.6-1.4)
[2018-12-30 22:49] LABS: Bilirubin Negative (Negative); Blood Small (Negative); Clarity Clear (Clear); Glucose 250 mg/dL (Negative); Ketones Trace mg/dL (Negative); Leukocyte Esterase Negative (Negative); Nitrite Negative (Negative); pH 6.5 (5-8)
[2018-12-30 22:54] LABS: Bacteria Few HPF (Negative); C & S Indicated? C&S Done As Ordered; Casts 3-5 Hyaline LPF (Negative); Crystals Negative HPF (Negative); Epithelial Cells Few HPF (Negative); Mucus Heavy (Negative); WBC 0-2 HPF (0-5)
[2018-12-31] VITALS (82 sets, daily range): BP systolic 80–166; BP diastolic 38–125; PULSE 56–114; RESP 15–31; TEMP 36.8–37.5; O2SAT 89–98
[2018-12-31] MEDS: Normal Saline Flush 10 ML SYR IVP ×5 (02:04→22:34)
[2018-12-31] MEDS: cefTAZidime 2,000 MG in Normal Saline 100 ML 200 MG IVPB ×3 (05:07→22:28)
[2018-12-31] MEDS: Insulin Aspart 300 UNITS/3 ML PEN SC ×3 (06:00→18:54)
[2018-12-31 06:49] LABS: Abs Immature Grans 0.06 k/cumm (0.0-0.09); HCT 33.1 % (40.0-50.0); HGB 11.4 g/dL (13.5-17.5); Mean Corp. HGB Concentration 34.4 g/dL (32.0-36.0); Mean Corpuscular Hemoglobin 32.1 pg (27.0-33.0); Mean Corpuscular Volume 93.2 fL (80-95); Mean Platelet Volume 8.8 fL (8.0-11.0); Platelet Count 100 x1000/uL (130-400); RBC 3.55 m/cumm (4.50-6.00); RBC Distribution Width 14.8 % (11.8-14.1); White Blood Cell Count 5.02 k/cumm (4.4-10.8)
[2018-12-31 07:03] LABS: Anion Gap 6.5 mmol/L (3-11); BUN 18 mg/dL (7-18); CO2 28.5 mmol/L (21.0-32.0); CREATININE 0.59 mg/dL (0.70-1.30); Calcium 7.3 mg/dL (8.5-10.1); Chloride 100 mmol/L (98-107); Glucose 183 mg/dL (70-100); Potassium 3.2 mmol/L (3.5-5.1); Sodium 135 mmol/L (136-145)
[2018-12-31 07:32] LABS: Magnesium 1.4 mg/dL (1.8-2.4)
[2018-12-31 07:49] LABS: Absolute Neutrophil Count 3.92 k/cumm (1.2-6.7); Atypical Lymphocytes % 1
[2018-12-31 07:50] LABS: Anisocytosis 1+; Diff Comment Manual Differential; Polychromasia Present
[2018-12-31 07:58] LABS: Creatine Kinase 198 U/L (39-308)
--- NOTE | 2018-12-31 08:00 | DI.US_ITS ---
SYMPTOMS/DIAGNOSIS: ARLETH EDEMA BILATERAL LOWER EXTREMITY ULTRASOUND: The deep veins were evaluated in the lower extremities bilaterally. There is no evidence of a deep venous thrombus in either lower extremity. There is edema seen in the soft tissues of the lower extremities bilaterally. The saphenofemoral junctions appear unremarkable. No focal fluid collection is seen to suggest a phan's cyst. IMPRESSION: No evidence of a deep venous thrombus in either lower extremity.
[2018-12-31 08:01] LABS: Lactate-non-spesis 1.1 mmol/l (0.6-1.4)
[2018-12-31] MEDS: MAGNESIUM SULFATE 4 GM/100 ML BAG IVPB (08:04)
[2018-12-31] MEDS: Dexamethasone 4 MG/ML VIAL IVP (08:04)
--- NOTE | 2018-12-31 08:10 | W.PM.PROGNOT ---
Date of Service Date of service: 12/31/18 Time of Service: 08:10 Assessment and Plan (1) Sepsis: Current visit: Yes Status: Acute Due to likely aspiration pneumonia. Improving with antibiotics (vancomycin, cefepime, levofloxacin). We might be able to haylee antibiotics more tomorrow - await blood cultures. Off pressors - shock resolved. Discussed with - she would like to continue on current course. (2) Hypoxia: Current visit: Yes Status: Acute Resolved. PE is a possibility - but hypoxia was rather transient, so aspiration event/pneumonia/pneumonitis seem more likely. Continue nebs, antibiotics, aspiration precautions. Monitor O2 sats (3) Aspiration pneumonia: Current visit: Yes Status: Acute Continue current abx as above. Cx pending. Evaluated by speech therapy - NPO except for thin clear fluids by , per speech therapy. (4) Acute adrenal insufficiency: Current visit: Yes Status: Acute Likely component of hypotension/shock yesterday. Is on chronic decadron. S/p one dose of hydrocortisone IV yesterday with increase of decadron and switch to IV following this. 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 EEG is ordered for today as is neurology consult Keep monitoring for seizures and monitoring mental status. 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 Continue increased dose of chemo/radiation. Palliative care on board - for now, continuing current course. (7) Elevated troponin: Current visit: Yes Status: Acute DDx: mild type 2 NSTEMI vs seizure vs CVA vs PE vs sepsis For echo today. Very high risk for anticoagulation. He is on baby asa. (8) Steroid-induced hyperglycemia: Current visit: Yes Status: Acute Continue SSI (9) Dysphagia: Current visit: Yes Status: Acute As above (10) Seizures: Current visit: Yes Status: Acute Continue increased dose of keppra. H/o myoclonus - EEG ordered for today. Formal neurology consult planned for today. (11) Edema of both legs: Current visit: Yes Status: Acute Await echo/venous dopplers. No SCD's (12) DVT prophylaxis: Current visit: Yes Status: Acute Avoid chemical dvt ppx due to recent brain surgery/GBM. Avoid SCD's until result of venous doppler is known (13) Discharge planning issues: Current visit: Yes Status: Acute DNR/DNI. In ICU, CVL in place - ok with current treatment. Palliative care on board Subjective Interval history since last seen: Off pressors since about 11 pm and no longer requiring oxygen. Slept all night. Arousable and answering questions this am. No fever overnight. HR 80-110's. No BM since a smear yesterday. Rodriguez with 400 cc in 8 hrs. Complains of a little headache, denies dizziness, chest pain, shortness of breath, nausea, vomiting, abdominal pain. Exam Narrative Exam Narrative: General: elderly male, lethargic, arousable easily, and stays alert longer today, A&Ox2 HEENT: EOMI, MMM Heart: RRR with extra beats, no m/r/g Lungs: crackles at B bases heard. GI: abdomen is soft, nontender, nondistended Extremities: 1-2+ BLE edema, symmetric, no c/c; trace pedal pulses Objective Objective Clinical Data: Abnormal lab results 12/30/18 12/30/18 12/30/18 Range/Units 06:36 17:30 22:35 RBC (4.50-6.00) m/cumm Hgb (13.5-17.5) g/dL Hct (40.0-50.0) % RDW (11.8-14.1) % Plt Count (130-400) x1000/uL Absolute Lymphocytes (1.2-3.4) k/cumm Sodium 133 L (136-145) mmol/L Potassium (3.5-5.1) mmol/L BUN 19 H D (7-18) mg/dL Creatinine 0.42 L (0.70-1.30) mg/dL Glucose 189 H (70-100) mg/dL Lactate 1.6 H (0.6-1.4) mmol/L Calcium 7.8 L (8.5-10.1) mg/dL Magnesium (1.8-2.4) mg/dL Creatine Kinase 479 H (39-308) U/L Troponin I 0.09 H* (0.00-0.06) ng/mL Total Protein 4.8 L (6.4-8.2) g/dL Albumin 2.1 L (3.4-5.0) g/dL Urine Protein 30 H (Negative) mg/dL Urine Ketones Trace H (Negative) mg/dL Urine Blood Small H (Negative) Urine Urobilinogen 2.0 H (Up TO 0.2) EU/dL Urine RBC 5-10 H (0-2) Urine Glucose 250 H (Negative) mg/dL 12/30/18 12/31/18 12/31/18 Range/Units 22:38 06:25 06:25 RBC (4.50-6.00) m/cumm Hgb (13.5-17.5) g/dL Hct (40.0-50.0) % RDW (11.8-14.1) % Plt Count (130-400) x1000/uL Absolute Lymphocytes (1.2-3.4) k/cumm Sodium 135 L (136-145) mmol/L Potassium 3.2 L (3.5-5.1) mmol/L BUN (7-18) mg/dL Creatinine 0.59 L (0.70-1.30) mg/dL Glucose 183 H (70-100) mg/dL Lactate 1.6 H (0.6-1.4) mmol/L Calcium 7.3 L (8.5-10.1) mg/dL Magnesium 1.4 L (1.8-2.4) mg/dL Creatine Kinase (39-308) U/L Troponin I (0.00-0.06) ng/mL Total Protein (6.4-8.2) g/dL Albumin (3.4-5.0) g/dL Urine Protein (Negative) mg/dL Urine Ketones (Negative) mg/dL Urine Blood (Negative) Urine Urobilinogen (Up TO 0.2) EU/dL Urine RBC (0-2) Urine Glucose (Negative) mg/dL 12/31/18 Range/Units 06:25 RBC 3.55 L (4.50-6.00) m/cumm Hgb 11.4 L (13.5-17.5) g/dL Hct 33.1 L (40.0-50.0) % RDW 14.8 H (11.8-14.1) % Plt Count 100 L (130-400) x1000/uL Absolute Lymphocytes 0.50 L (1.2-3.4) k/cumm Sodium (136-145) mmol/L Potassium (3.5-5.1) mmol/L BUN (7-18) mg/dL Creatinine (0.70-1.30) mg/dL Glucose (70-100) mg/dL Lactate (0.6-1.4) mmol/L Calcium (8.5-10.1) mg/dL Magnesium (1.8-2.4) mg/dL Creatine Kinase (39-308) U/L Troponin I (0.00-0.06) ng/mL Total Protein (6.4-8.2) g/dL Albumin (3.4-5.0) g/dL Urine Protein (Negative) mg/dL Urine Ketones (Negative) mg/dL Urine Blood (Negative) Urine Urobilinogen (Up TO 0.2) EU/dL Urine RBC (0-2) Urine Glucose (Negative) mg/dL Vital Signs Temperature 37.4 C 12/31/18 06:30 Temperature Source Temporal Artery Scan 12/31/18 06:30 Pulse 85 12/31/18 06:30 Pulse Rhythm Regular 12/30/18 16:40 Pulse 103 H 12/31/18 06:30 Respiratory Rate 18 12/31/18 06:30 Respiratory Effort 12/31/18 06:30 Respiratory Depth Normal 12/31/18 03:00 Respiratory Pattern Normal 12/31/18 03:00 Blood Pressure 111/45 L 12/31/18 06:30 Blood Pressure Mean 60 12/31/18 06:30 Blood Pressure Position Supine 12/31/18 03:00 Pulse Oximetry 97 12/31/18 06:30 Oxygen Delivery Method Nasal Cannula 12/31/18 03:00 Oxygen Flow Rate 2 12/31/18 03:00 Pain Level 0 12/31/18 03:00 Intake & Output 12/30/18 12/30/18 12/31/18 11:59 23:59 11:59 Intake Total 1894.583 / 4599.735 2705.152 / 4599.735 300 / 300 Output Total 325 / 2125 1800 / 2125 1200 / 1200 Balance 1569.583 / 2474.735 905.152 / 2474.735 -900 / -900 Weight 85.5 kg 85.5 kg Intake: IV 1864.583 / 4569.735 2705.152 / 4569.735 300 / 300 Oral 30 / 30 Output: Urine 325 / 5 1800 / 2124 1200 / 1200 Other: Urine Color Light Miroslava Light Miroslava Light Miroslava Urine Appearance Clear Clear Clear Sediment Sediment Comment Rodriguez catheter. Voiding Methods Indwelling Catheter Indwelling Catheter Ileal Conduit (Right) Laboratory Results WBC 5.02 k/cumm (4.4-10.8) 12/31/18 06:25 RBC 3.55 m/cumm (4.50-6.00) L 12/31/18 06:25 Hgb 11.4 g/dL (13.5-17.5) L 12/31/18 06:25 Hct 33.1 % (40.0-50.0) L 12/31/18 06:25 MCV 93.2 fL (80-95) 12/31/18 06:25 MCH 32.1 pg (27.0-33.0) 12/31/18 06:25 MCHC 34.4 g/dL (32.0-36.0) 12/31/18 06:25 RDW 14.8 % (11.8-14.1) H 12/31/18 06:25 Plt Count 100 x1000/uL (130-400) L 12/31/18 06:25 MPV 8.8 fL (8.0-11.0) 12/31/18 06:25 Immature Gran % See Differential 12/31/18 06:25 24.0 12/31/18 06:25 54.0 % 12/31/18 06:25 10.0 12/31/18 06:25 Atypical Lymphs % 1 12/31/18 06:25 4.0 12/31/18 06:25 0.0 12/31/18 06:25 0.0 12/31/18 06:25 2.0 % 12/31/18 06:25 5.0 % 12/31/18 06:25 Absolute Neutrophils 3.92 k/cumm (1.2-6.7) 12/31/18 06:25 Absolute Lymphocytes 0.50 k/cumm (1.2-3.4) L 12/31/18 06:25 Absolute Monocytes 0.20 k/cumm (0.11-0.7) 12/31/18 06:25 Absolute Eosinophils 0.00 k/cumm (0.0-0.7) 12/31/18 06:25 Absolute Basophils 0.00 k/cumm (0.0-0.2) 12/31/18 06:25 Manual differential 12/31/18 06:25 RBC Morphology See below 12/31/18 06:25 Present 12/31/18 06:25 1+ 12/31/18 06:25 Sodium 135 mmol/L (136-145) L 12/31/18 06:25 Potassium 3.2 mmol/L (3.5-5.1) L 12/31/18 06:25 Chloride 100 mmol/L (98-107) 12/31/18 06:25 Carbon Dioxide 28.5 mmol/L (21.0-32.0) 12/31/18 06:25 6.5 mmol/L (3-11) 12/31/18 06:25 BUN 18 mg/dL (7-18) 12/31/18 06:25 0.59 mg/dL (0.70-1.30) L 12/31/18 06:25 >= 60.00 (mL/min/1.73m2) 12/31/18 06:25 Glucose 183 mg/dL (70-100) H 12/31/18 06:25 1.1 mmol/l (0.6-1.4) 12/31/18 07:55 Calcium 7.3 mg/dL (8.5-10.1) L 12/31/18 06:25 Magnesium 1.4 mg/dL (1.8-2.4) L 12/31/18 06:25 0.9 mg/dL (0.2-1.0) 12/30/18 06:36 AST 25 U/L (15-37) 12/30/18 06:36 ALT 41 U/L (12-78) 12/30/18 06:36 50 U/L (46-116) 12/30/18 06:36 198 U/L (39-308) 12/31/18 06:25 0.09 ng/mL (0.00-0.06) H* 12/30/18 06:36 4.8 g/dL (6.4-8.2) L 12/30/18 06:36 2.1 g/dL (3.4-5.0) L 12/30/18 06:36 125 U/L (73-393) 12/29/18 09:30 TSH 0.44 uIU/mL (0.358-3.74) 12/29/18 20:05 Yellow (Yellow) 12/30/18 22:35 Clear (Clear) 12/30/18 22:35 6.5 (5-8) 12/30/18 22:35 Ur Specific [place] 1.020 (1.005-1.025) 12/30/18 22:35 30 mg/dL (Negative) H 12/30/18 22:35 Trace mg/dL (Negative) H 12/30/18 22:35 Small (Negative) H 12/30/18 22:35 Negative (Negative) 12/30/18 22:35 Negative (Negative) 12/30/18 22:35 2.0 EU/dL (Up TO 0.2) H 12/30/18 22:35 Ur Leukocyte Esterase Negative (Negative) 12/30/18 22:35 5-10 (0-2) H 12/30/18 22:35 0-2 HPF (0-5) 12/30/18 22:35 Ur Epithelial Cells Few HPF (Negative) 12/30/18 22:35 Negative HPF (Negative) 12/30/18 22:35 Few HPF (Negative) 12/30/18 22:35 3-5 hyaline LPF (Negative) 12/30/18 22:35 Heavy (Negative) 12/30/18 22:35 Ur Culture Indicated? C&s done as ordered 12/30/18 22:35 250 mg/dL (Negative) H 12/30/18 22:35
[2018-12-31] MEDS: POTASSIUM CHLORIDE 20 MEQ/100 ML BAG 50 MEQ IVPB ×2 (08:25→12:15)
--- NOTE | 2018-12-31 08:52 | OT.INNT ---
Date of service: 12/31/18 Time of Service: 08:35 Occupational Therapy Notes 12/31/18 OT consult was received and pt's chart was reviewed. OT went to see pt, pt was not responding verbally to OT and pt was unable to verbally participate or open eyes during session. Due to this, OT will plan to re-assess pt tomorrow morning. Milly Paul OTR/[facility]
--- NOTE | 2018-12-31 10:06 | W.SPEECHEVAL ---
Date of service: 12/31/18 Time of Service: 09:20 Speech Therapy Evaluation Note: Clinical Bedside Evaluation Medical History (Include any history of Dysphagia, Aspiration, and/or Pneumonia): s/p craniotomy, diplopia, altered mental states, edema of lower legs, dysphagia. Current Diet/Liquid Consistency: Dietary Restrictions: NPO Respiratory Status: nasal cannula Positioning and Mobility: upright in bed with support Cognitive Status: altered mental state Oral Peripheral Exam: Minimal participation d/t mental state Structure: L sided labial droop Sensation: reduced Facial: reduced Lips: reduced Tongue: reduced, L sided weakness Jaw: reduced Hard Palate: WNL Soft Palate: WNL Uvula: WNL Dentition: edentulous, dentures not present Pharyngeal Exam: Volitional Cough: absent Volitional Swallow: delayed Gag Reflex: not tested Vocal Quality: weak Comments: Trial Consistencies: Thin__x_ Nectar__x_ Honey___ Pudding___ Regular___Bite size___Chopped___Mechanical Soft___Ground___Puree_x__Pudding_x__ Oral Preparatory Phase: Lip seal via spoon/cup: WFL_x__ Impaired___ Bolus Containment: WFL__x_ Impaired___ Oral Stage: Bolus Formation: WFL___ Impaired__x_ (bilateral buccal pocketing) Bolus Propulsion: WFL___ Impaired_x__ Mastication: WFL___ Impaired_x__ Pharyngeal Stage: Laryngeal Elevation: WFL ___ Impaired _x__ Vocal Quality after swallow: __shallow, weak but dry Swallow Reflex Time: __10-30 seconds____ # of Swallows _16__ Coughing: No_x__ Yes ___ Before Swallow___ During Swallow___ After Swallow___ Esophageal Stage: Pt has previously reported reflux and avoids acidic foods Nasal Regurgitation__no_ Oral Regurgitation_no__ Signs/Symptoms of Aspiration (please specify): no Clinical Summary: This pt, 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 Recommended Diet/Liquid Consistency: NPO; free water protocol (thin water per request if provided aggressive oral care prior to consumption). Full assist with sips. Only , known to and educated by YOUTH COUNSELOR, may provide pt with spoon sips of broths and soups. Plan of Treatment (check all that apply): Aspiration Precautions_x__ Reflux Precautions__x_ Compensatory Strategies for Safe Swallowing: upright positioning, small sips, slow rate, aggressive oral care, verbal cues to swallow Therapeutic Exercises_x__ Therapeutic Activities (PO trials)_x__ Senior Care Goals: 1. Pt will consume least restrictive diet textures and liquid consistencies to maximize nutrition, hydration and QOL. Short Term Goals: 1. Pt will tolerate PO trials of puree textures with <10% s/sx aspiration or penetration. 2. Pt will tolerate PO trials of thin liquids with <10% s/sx aspiration or penetration. 3. Pt will improve swallow initiation to <6 seconds given verbal cues in 4/5 measured trials. Frequency/Duration of Treatment: 5x week for 1 week YOUTH COUNSELOR Printed Name: Jody Boateng MA, CCC/YOUTH COUNSELOR YOUTH COUNSELOR Signature/License #:[id number]
--- NOTE | 2018-12-31 10:30 | MERGE_ITS ---
*[facility]* *[facility]* [address] [place] [address] Date of study: 12/31/2018 Transthoracic Echocardiography M-mode, complete 2D, complete spectral Doppler, and color Doppler *STUDY CONCLUSIONS* Summary: 1. Left ventricle: The cavity size was normal. Systolic function was hyperdynamic. The estimated ejection fraction was 65-70%. Some parameters suggest diastolic dysfunction. There was no evidence of elevated ventricular filling pressure by Doppler parameters. 2. Left atrium: The atrium was mildly dilated. 3. Right ventricle: The cavity size was normal. Wall thickness was normal. Systolic function was normal. 4. Atrial septum: No defect or patent foramen ovale was identified. 5. Pulmonary arteries: Pulmonary systolic pressure was in the range of 25mm Hg to 35mm Hg. 6. Inferior vena cava: The vessel was normal in size. The respirophasic diameter changes were in the normal range (greater than or equal to 50%), consistent with normal central venous pressure. *PATIENT PRESENTATION* Height: 167.6cm (66in ) S/D Pressure: 124 / 46 Weight: 85.3kg (187.6lb ) BSA: 2.02m^2 Test start time: 10:40 AM. Test stop time: 11:30 AM. PERFORMING Unknown PERFORMING [facility] LAP REGULATOR RT Bhupendra (Karey)(CT), [facility] REFERRING Md Rustam Kerns CONSULTING Ale Tracey ORDERING Ale Tracey REFERRING Ale Tracey *PROCEDURE DATA* Procedure information: The patient was identified by two identifiers. This study was interpreted by [facility]. Pertinent images and digital data are archived for permanent storage and are available for subsequent review. No prior study was available for comparison. Study status: Routine. Transthoracic echocardiography. M-mode, complete 2D, complete spectral Doppler, and color Doppler. A Transthoracic Echocardiogram was performed. Scanning was performed from the parasternal, apical, subcostal, and suprasternal notch acoustic windows. Images were obtained using an [id number] cardiac ultrasound machine. Image quality was good. Study completion: The patient tolerated the procedure well. History: PMH: Elevated troponin. *CARDIAC ANATOMY* Left ventricle: The cavity size was normal. Systolic function was hyperdynamic. The estimated ejection fraction was 65-70%. The tissue Doppler parameters were abnormal. Some parameters suggest diastolic dysfunction. There was no evidence of elevated ventricular filling pressure by Doppler parameters. Aortic valve: Trileaflet; mildly thickened, mildly calcified leaflets. Doppler: There was no stenosis. There was no regurgitation. VTI ratio of LVOT to aortic valve: 0.55. Valve area (VTI): 1.8cm^2. Indexed valve area (VTI): 0.9cm^2/m^2. Peak velocity ratio of LVOT to aortic valve: 0.59. Valve area (Vmax): 1.9cm^2. Indexed valve area (Vmax): 0.9cm^2/m^2. Mean velocity ratio of LVOT to aortic valve: 0.62. Valve area (Vmean): 2cm^2. Indexed valve area (Vmean): 1cm^2/m^2. Mean gradient (S): 11.8mm Hg. Peak gradient (S): 23.1mm Hg. Aorta: Aortic root: The aortic root was normal in size. Ascending aorta: The ascending aorta was normal in size. Mitral valve: Doppler: There was no evidence for stenosis. There was no significant regurgitation. Valve area by pressure half-time: 3.8cm^2. Indexed valve area by pressure half-time: 1.9cm^2/m^2. Left atrium: The atrium was mildly dilated. Atrial septum: No defect or patent foramen ovale was identified. Right ventricle: The cavity size was normal. Wall thickness was normal. Systolic function was normal. Pulmonic valve: Doppler: There was no evidence for stenosis. Peak gradient (S): 7.6mm Hg. Tricuspid valve: Doppler: There was mild regurgitation. Pulmonary artery: Poorly visualized. Pulmonary systolic pressure was in the range of 25mm Hg to 35mm Hg. Right atrium: The atrium was normal in size. Pericardium: There was no pericardial effusion. Systemic veins: Inferior vena cava: The vessel was normal in size. The respirophasic diameter changes were in the normal range (greater than or equal to 50%), consistent with normal central venous pressure. Measurements Left ventricle Value Reference LV ID, ED, PLAX 4.1 cm 3.5 - 6.0 LV ID, ES, PLAX 3.0 cm 2.1 - 4.0 LV PW thickness, ED, PLAX 1.2 cm LV end-diastolic volume, 1-p A2C 39 ml LV ejection fraction, 1-p A2C 68 % LV end-diastolic volume, 1-p A4C 72 ml LV ejection fraction, 1-p A4C 70 % LV e', lateral 0.092 m/sec LV E/e', lateral 6 LV e', medial 0.059 m/sec LV E/e', medial 10 LV e', average 0.076 m/sec LV E/e', average 8 Ventricular septum Value Reference IVS thickness, ED, PLAX 1.3 cm LVOT Value Reference LVOT ID, A-P 2.0 cm LVOT area 3.2 cm^2 LVOT peak velocity, S 1.43 m/sec LVOT mean velocity, S 1 m/sec LVOT VTI, S 22.4 cm LVOT peak gradient, S 8.2 mm Hg LVOT mean gradient, S 4.7 mm Hg Stroke volume (SV), LVOT DP 72 ml Stroke index (SV/bsa), LVOT DP 36 ml/m^2 Aortic valve Value Reference Aortic valve peak velocity, S 2.4 m/sec Aortic valve mean velocity, S 1.6 m/sec Aortic valve VTI, S 41.0 cm Aortic mean gradient, S 11.8 mm Hg Aortic peak gradient, S 23.1 mm Hg VTI ratio, LVOT/AV 0.55 Aortic valve area, VTI 1.8 cm^2 Velocity ratio, peak, LVOT/AV 0.59 Aortic valve area, peak velocity 1.9 cm^2 Velocity ratio, mean, LVOT/AV 0.62 Aortic valve area, mean velocity 2 cm^2 Aortic valve area/bsa, mean velocity 1 cm^2/m^2 Aorta Value Reference Aortic root ID, ED 3.0 cm Ascending aorta ID, A-P, S 3.3 cm Left atrium Value Reference LA ID, A-P, ES 3.4 cm LA ID/bsa, A-P 1.7 cm/m^2 <=2.2 LA volume/bsa, ES, 1-p A4C 41 ml/m^2 LA/aortic root ratio 1.14 Mitral valve Value Reference Mitral E-wave peak velocity 0.59 m/sec Mitral A-wave peak velocity 0.88 m/sec Mitral deceleration time 200 ms 150 - 230 Mitral pressure half-time 58 ms Mitral E/A ratio, peak 0.67 Mitral valve area, PHT, DP 3.8 cm^2 Tricuspid valve Value Reference Tricuspid regurg peak velocity 2.6 m/sec Tricuspid peak RV-RA gradient 26.5 mm Hg Right atrium Value Reference RA area, ES, A4C 18.5 cm^2 8.3 - 19.5 Pulmonic valve Value Reference Pulmonic peak gradient, S 7.6 mm Hg Legend: (L) and (H) dee values outside specified reference range. I have personally reviewed the images and have reviewed and edited the reported findings. Electronically signed by John Paul Easton MD 12/31/2018 16:30
--- NOTE | 2018-12-31 10:56 | ROE_ITS ---
DATE OF PROCEDURE: December 30, 2018 PREOPERATIVE DIAGNOSIS: Hypotension. POSTOPERATIVE DIAGNOSIS: Same. PROCEDURE: Left subclavian central line placement. SURGEON: Jolly Vera M.D. ANESTHESIA: Local. INDICATIONS: This is a 78-year-old man who is currently in the Intensive Care Unit with possible sep sis. He is also status post neurosurgery for a glioblastoma with decreased mental status. He is hyp otensive and is requiring pressors. PROCEDURE: The patient was placed supine on the ICU bed and his left chest and neck were prepped and draped sterilely. The skin of the upper chest wall was infiltrated with local anesthetic. The subc lavian vein was accessed after a few passes with the 18 gauge needle. The wire was threaded without difficulty and the needle removed. A small incision was made in the skin and the dilator passed over the wire. The central line was passed over the wire and then the wire removed. The central line wa s sutured to the chest using the small adaptor with holes in it, and then I also sutured it in a seco nd position as well with the #2-0 silk provided. The ports aspirated nicely and were flushed with in jectable saline in a sterile fashion with sterile caps applied. The dressing was then applied steril stevenson. Post-procedure chest film was reviewed and showed the line to be in good position with no evide nce of pneumothorax. He tolerated the procedure very well.
--- NOTE | 2018-12-31 14:55 | CMPROGNOTE_ITS ---
Care Management Progress Note S/O: Nico was sitting up in bed, talking this morning. CM spoke with John Paul of [facility] and shared MD sentiment; that further status ([id number] treatment) will be determined in how Nico responds clinically over the next few days. CM will continue to follow. A: 78 year old male admitted to [facility] 12/29/18 for ACG, Glioblastoma with AMS, Seizure, Left Hemiparesis P: Nico will continue to be closely monitored and treated. Anticipate Nico's medical status during the next forty-eight hour period will determine treatment plan and disposition. CM will continue to support family and coordinate identified service supports.
[2018-12-31] MEDS: levoFLOXacin 500 MG/100 ML BAG 100 MG IVPB (15:28)
--- NOTE | 2018-12-31 17:00 | PT.INNT ---
Date of service: 12/31/18 Time of Service: 16:23 PT Notes Patient is a 78-year-old male with past medical history significant for right glioblastoma multiforme status post craniotomy in October 2018 with debulking who presented to the ED on 12/29/2018 with chief complaints of headache, increased myoclonic activity, increased weakness, and confusion. Patient was seen twice today for attempts at conducting physical therapy evaluation but is unable to participate due to continued inability to initiate/follow instructions related to somnolence. No skilled services are needed at this time. Thank you very much for this referral. Ilsa Carreno PT, DPT, CLT [facility]
--- NOTE | 2018-12-31 17:11 | NCONE_ITS ---
Date of service: 12/31/18 Time of Service: 17:11 Assessment and Plan (1) GBM (glioblastoma multiforme): Current visit: No Status: Chronic (2) Altered mental state: Current visit: Yes Status: Acute Qualifiers: Altered mental status type: transient alteration of awareness Qualified Code(s): R40.4 - Transient alteration of awareness (3) Myoclonus epilepsy: Current visit: Yes Status: Acute Mr. Arreola is a 78-year-old, right-handed man with a right GBM s/p carniotomy in October 2018 who was admitted with increased myoclonic activity, headaches, left hemiparesis, dysphagia, and confusion who subsequently went into shock secondary to aspiration pneumonia. He remains somnolent with severe dysphagia, dysarthria, and hypophonia along with generalized weakness and apparent left hemineglect. After discussion with Mr. Arreola's , the goal of care is not entirely clear at this time. I would therefore recommend an updated brain MRI w/wo, which if consistent with further tumor growth may impact clinical decisions. I would also like to perform prolonged EEG monitoring. Unfortunately, EEG was not available today. We hope that it can be started tomorrow. If not, and full care is being pursued, I would recommend transfer to a facility with EEG capabilities. In the meantime, I would consider increasing Decadron further to 8mg BID as he responded to that dose in November 2018. This might perk him up with tumor edema is present and contributing to his symptoms. I would continue Keppra 1750mg BID for his myoclonus for now. If he has evidence of further myoclonus or seizure activity, I would add Depakote with a loading dose of 1000mg and then continued at 500mg BID. I will continue to follow. Please call with any questions or concerns. DISCLAIMER: This note was created using [employer] voice recognition software. History of Present Illness Chief Complaint: altered mental status Narrative: Handedness: right. HPI: Mr. Arreola is a 78-year-old man with a past medical history of hypertension, peripheral artery disease, and a relatively new diagnosis of a right frontal glioblastoma status post resection in October 2018. At baseline, he has a mild left hemiparesis, dysarthria, dysphagia, and severe diplopia which causes nausea ? all attributed to his GBM, complicated by cortical myoclonus (admitted to [facility] in November 2018 with vEEG; treated with increasing doses of LEV). He was scheduled to start Temodar and palliative radiation later this week. Mr. Arreola was admitted on 12/29/2018 with increased headaches, dysphagia, confusion, and left hemiparesis after a day of increased myoclonus. This was associated with urinary retention and a mild troponin leak. On the morning of 12/30/2018, he was seemingly improved. However later that afternoon he went into an apparent septic shock with hypotension into the 60s, mild fever, new oxygen requirements, and acute on chronic renal failure all attributed to aspiration pneumonia. A central line was placed and he was briefly on pressors but has since been taken off. He is on broad-spectrum antibiotics. In addition, Decadron was increased from 2/4 mg twice daily to 4 mg twice daily. Levetiracetam was increased from 1500 mg twice daily to 1750 mg twice daily for possible myoclonus/seizure activity as contribution to his altered mental status. His only improvement since yesterday is his lack of need for pressors. He remains quite somnolent with increased hypophonia, dysarthria, and dysphagia. He apparently was able to participate in a swallow evaluation today and is currently n.p.o. He has not had any witnessed seizure or myoclonic activity. He underwent a CT head on 12/29/2018 which I was able to review and shows evolving changes from his right frontal craniotomy with bifrontal T2 hyperintensities right greater than left. He had a CT head on 11/28 which I was able to review at which time he had a midline shift status post craniotomy. Review of the [facility] records reveals that an MRI performed during his admission from 11/28-12/03/18 was concerning for tumor growth.. He had a CTA of the neck on 11/28/2018 which I was also able to review. Radiology read it as a 60% right carotid stenosis. He had a significant amount of plaque bilaterally at the bulbs and may have a more significant stenosis on the left as well, in my opinion. Consults Requesting physician: Ale Tracey Review of Systems Review of Systems Unobtainable due to mental condition [facility] Medical History Diplopia (Acute) Dysphagia (Acute) GBM (glioblastoma multiforme) (Chronic ~11/28/18) Goals of care, counseling/discussion (Acute) HTN (hypertension) (Chronic) 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 Sister No problems noted. Brother No problems noted. Brother No problems noted. Brother No problems noted. Son No problems noted. Son No problems noted. Son No problems noted. Social History Smoking/Tobacco Use Status: Current every day Tobacco Type: cigarettes Second Hand Exposure: Yes Alcohol Intake: current Alcohol Intake frequency: holidays/special occasions only Alcohol type: hard liquor Drug use: Never Substance use type: does not use Details: Pt is not only smoking a lot of cigeretts but is chewing nicodine gum. 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 Pets and animals: Yes Pets and animals: cat(s) What is your relationship status?: How often do you talk on the phone with friends or family?: once per week How often do you get together with friends or relatives?: three or more times per week Panel score (0-1 are the most socially isolated patients): 2 What type of physical activity do you participate in: assisted ambulation Duration: 15-30 minutes/day Frequency: 5-6 times per week Macrina/Anabaptist: Pentecostalism Special macrina needs: No Seatbelt use: always Do you feel safe at home: Yes Do you feel safe in your relationship?: Yes Additional Social history: was walking up until this admission for second episode of generalized seizures he said his primary goal was to go home; his sons have made his home handicapped accessible. not sure if he will regain enough strength to be able to return home. Visit Medication and Allergies Active Medications Generic Name Dose Route Start Last Admin Trade Name Freq PRN Reason Stop Dose Admin Acetaminophen 1,000 mg 12/29/18 17:36 Tylenol PO Q4H PRN PRN Acetaminophen 650 mg 12/30/18 14:15 12/30/18 14:35 Tylenol AL 650 mg Q6H PRN PRN Administration Al Hydrox/Mg Hydrox/Simethicone 30 ml 12/29/18 17:36 Mylanta Liquid PO Q2H PRN PRN Albuterol Sulfate 2.5 mg 12/30/18 14:28 Proventil Updraft UPD Q2H PRN PRN Aspirin 81 mg 12/30/18 08:30 12/30/18 08:43 PO 81 mg DAILY LILLIE Administration Cilostazol 100 mg 12/29/18 20:00 12/30/18 20:04 Pletal PO 100 mg BID LILLIE Administration Dexamethasone 4 mg 12/30/18 20:00 12/31/18 08:04 Decadron Phosphate IVP 4 mg BID LILLIE Administration Dextrose 0 gm 12/29/18 17:57 Insta-Glucose PO DIRECTED PRN Dextrose/Water 0 gm 12/29/18 17:57 IVP DIRECTED PRN Dimethicone/Zinc Oxide 0 gm 12/29/18 17:36 12/30/18 14:40 Dahlia Protect Cream TP 1 applic PRN PRN Administration Docusate Sodium 100 mg 12/29/18 17:36 Colace PO TID PRN PRN Escitalopram Oxalate 10 mg 12/30/18 08:30 12/30/18 08:44 Lexapro PO 10 mg DAILY LILLIE Administration Vancomycin HCl/Dextrose 1 gm in 200 mls @ 133.333 mls/hr 12/31/18 02:00 12/31/18 15:29 Vancocin Injection IV Infused Q10H LILLIE Infusion Protocol Levofloxacin 500 mg in 100 mls @ 100 mls/hr 12/31/18 15:00 12/31/18 15:28 Levaquin Premixed Bag IVPB 100 mls/hr Q24H LILLIE Administration Protocol Levetiracetam 1,750 mg/ Sodium 117.5 mls @ 400 mls/hr 12/31/18 08:30 12/31/18 15:28 Chloride IVPB Infused BID LILLIE Infusion Norepinephrine Bitartrate 32, 250 mls @ 0 mls/hr 12/30/18 17:15 12/31/18 12:16 000 mcg/ Dextrose/Water IV Infused INFUSION LILLIE Titration Protocol Per Protocol Acetaminophen 1,000 mg in 100 mls @ 400 mls/hr 12/30/18 18:47 12/30/18 21:44 Ofirmev IVPB Infused Q6H PRN PRN Infusion Sodium Chloride 500 mls @ 0 mls/hr 12/30/18 16:50 12/31/18 12:16 Saline 500ml Bag IV Infused PRN PRN Infusion As Directed Ceftazidime 2,000 mg/ Sodium 100 mls @ 200 mls/hr 12/31/18 06:00 12/31/18 15:28 Chloride IVPB 200 mls/hr Q8H LILLIE Administration IV Miscellaneous Supplies 1 each 12/29/18 09:30 IV DIRECTED LILLIE Insulin Aspart 0 units 12/30/18 18:00 12/31/18 12:35 Novolog Flexpen SC 1 units Q6H LILLIE Administration Protocol Lorazepam 1 mg 12/30/18 13:33 Ativan Injection IVP Q2H PRN PRN Magnesium Hydroxide 30 ml 12/29/18 17:36 Milk Of Magnesia PO DAILY PRN PRN Polyethylene Glycol 17 gm 12/29/18 17:36 Miralax PO DAILY PRN PRN Constipation Potassium Chloride 10 meq 12/30/18 08:30 12/30/18 08:44 K-Dur PO 10 meq DAILY LILLIE Administration Sodium Chloride 0 ml 12/29/18 09:21 12/31/18 12:16 Saline Flush 10 Ml Syringe IVP 20 ml PRN PRN Administration Allergies venom-honey bee [bee venom (honey bee)] Allergy (Severe, Unverified 12/29/18 09:16) Swelling Penicillins Allergy (Unverified 12/29/18 09:16) Exam Narrative Exam Narrative: Physical Exam: Gen: Patient of apparent stated age, NAD, sleeping Head and face: no facial or cranial abnormalities Neck: Supple, no meningismus, no occipital tenderness CV: RRR, Resp: rhonchi B/L Abd: soft, nontender, nondistended. +BS Ext: Mild bilateral LE edema. No clubbing or cyanosis. No bony deformity. Neuro Exam: Language: unable to test naming, fluency, or repetition; able to follow simple 1-step commands; Mental Status: GCS 13; somnolent but arousable; Speech: severe hypophonia and moderate dysarthria CN: PERRL, EOMI, left homonymous hemianopsia vs left hemineglect vs both; trigeminal sensation appears intact, no facial asymmetry, hearing appears intact; Sensory/Motor: Bulk intact; Hypotonic throughout the bilateral LE; looked to painful stimulus in each extremity but did not withdraw/etc - is this localization?.; Was able to move bilateral UE by command, but preferred to move right UE; ?L tim-neglect? Reflexes: hyporeflexic throughout; toes upgoing bilaterally; Coordination: no apparent ataxia Gait: deferred Results Last Vital Signs Temp 37.1 C 12/31/18 15:30 Pulse 80 12/31/18 16:00 Resp 21 12/31/18 16:01 BP 142/63 H 12/31/18 16:00 Pulse Ox 97 12/31/18 15:30 Labs : 12/31/18 06:25 12/31/18 06:25 Laboratory Results - last 24 hr 12/30/18 12/30/18 12/30/18 17:30 19:34 22:35 WBC RBC Hgb Hct MCV MCH MCHC RDW Plt Count MPV Immature Gran % Neutrophils % Band Neutrophils % Lymphocytes % Atypical Lymphs % Monocytes % Eosinophils % Basophils % Metamyelocytes % Myelocytes % Absolute Neutrophils Absolute Lymphocytes Absolute Monocytes Absolute Eosinophils Absolute Basophils Differential Comment RBC Morphology Polychromasia Anisocytosis Sodium Potassium Chloride Carbon Dioxide Anion Gap BUN Creatinine Estimated GFR/1.73 m2 Glucose Lactate 1.6 H 1.3 Calcium Magnesium Creatine Kinase Urine Color Yellow Urine Clarity Clear Urine pH 6.5 Ur Specific [place] 1.020 Urine Protein 30 H Urine Ketones Trace H Urine Blood Small H Urine Nitrite Negative Urine Bilirubin Negative Urine Urobilinogen 2.0 H Ur Leukocyte Esterase Negative Urine RBC 5-10 H Urine WBC 0-2 Ur Epithelial Cells Few Urine Crystals Negative Urine Bacteria Few Urine Casts 3-5 hyaline Urine Mucus Heavy Ur Culture Indicated? C&s done as ordered Urine Glucose 250 H 12/30/18 12/31/18 12/31/18 22:38 06:25 06:25 WBC RBC Hgb Hct MCV MCH MCHC RDW Plt Count MPV Immature Gran % Neutrophils % Band Neutrophils % Lymphocytes % Atypical Lymphs % Monocytes % Eosinophils % Basophils % Metamyelocytes % Myelocytes % Absolute Neutrophils Absolute Lymphocytes Absolute Monocytes Absolute Eosinophils Absolute Basophils Differential Comment RBC Morphology Polychromasia Anisocytosis Sodium 135 L Potassium 3.2 L Chloride 100 Carbon Dioxide 28.5 Anion Gap 6.5 BUN 18 Creatinine 0.59 L Estimated GFR/1.73 m2 >= 60.00 Glucose 183 H Lactate 1.6 H Calcium 7.3 L Magnesium 1.4 L Creatine Kinase 198 Urine Color Urine Clarity Urine pH Ur Specific [place] Urine Protein Urine Ketones Urine Blood Urine Nitrite Urine Bilirubin Urine Urobilinogen Ur Leukocyte Esterase Urine RBC Urine WBC Ur Epithelial Cells Urine Crystals Urine Bacteria Urine Casts Urine Mucus Ur Culture Indicated? Urine Glucose 12/31/18 12/31/18 06:25 07:55 WBC 5.02 RBC 3.55 L Hgb 11.4 L Hct 33.1 L MCV 93.2 MCH 32.1 MCHC 34.4 RDW 14.8 H Plt Count 100 L MPV 8.8 Immature Gran % See Differential Neutrophils % 24.0 Band Neutrophils % 54.0 Lymphocytes % 10.0 Atypical Lymphs % 1 Monocytes % 4.0 Eosinophils % 0.0 Basophils % 0.0 Metamyelocytes % 2.0 Myelocytes % 5.0 Absolute Neutrophils 3.92 Absolute Lymphocytes 0.50 L Absolute Monocytes 0.20 Absolute Eosinophils 0.00 Absolute Basophils 0.00 Differential Comment Manual differential RBC Morphology See below Polychromasia Present Anisocytosis 1+ Sodium Potassium Chloride Carbon Dioxide Anion Gap BUN Creatinine Estimated GFR/1.73 m2 Glucose Lactate 1.1 Calcium Magnesium Creatine Kinase Urine Color Urine Clarity Urine pH Ur Specific [place] Urine Protein Urine Ketones Urine Blood Urine Nitrite Urine Bilirubin Urine Urobilinogen Ur Leukocyte Esterase Urine RBC Urine WBC Ur Epithelial Cells Urine Crystals Urine Bacteria Urine Casts Urine Mucus Ur Culture Indicated? Urine Glucose
[2018-12-31] MEDS: Pantoprazole 40 MG VIAL IVP (18:53)
[2018-12-31] MEDS: Dexamethasone 4 MG/ML VIAL 8 MG IVP (20:42)
[2019-01-01] VITALS (37 sets, daily range): BP systolic 106–165; BP diastolic 48–86; PULSE 67–109; RESP 11–22; TEMP 36.2–37.7; O2SAT 92–98
[2019-01-01] MEDS: ACETAMINOPHEN 1,000 MG/100 ML BTL 400 MG IVPB (00:32)
[2019-01-01] MEDS: cefTAZidime 2,000 MG in Normal Saline 100 ML 200 MG IVPB ×3 (06:00→21:43)
[2019-01-01] MEDS: Insulin Aspart 300 UNITS/3 ML PEN SC ×3 (06:23→18:10)
[2019-01-01 07:06] LABS: Abs Immature Grans 0.14 k/cumm (0.0-0.09); HCT 32.9 % (40.0-50.0); HGB 11.5 g/dL (13.5-17.5); Mean Corpuscular Hemoglobin 32.6 pg (27.0-33.0); Mean Corpuscular Volume 93.2 fL (80-95); Mean Platelet Volume 9.4 fL (8.0-11.0); RBC 3.53 m/cumm (4.50-6.00); RBC Distribution Width 14.9 % (11.8-14.1); White Blood Cell Count 6.87 k/cumm (4.4-10.8)
[2019-01-01 07:15] LABS: BUN 17 mg/dL (7-18); CREATININE 0.49 mg/dL (0.70-1.30); Calcium 7.6 mg/dL (8.5-10.1); Chloride 102 mmol/L (98-107); Glucose 175 mg/dL (70-100); Magnesium 2.1 mg/dL (1.8-2.4); Potassium 3.6 mmol/L (3.5-5.1); Sodium 137 mmol/L (136-145)
[2019-01-01 07:31] LABS: Absolute Lymphocyte Count 0.41 k/cumm (1.2-3.4); Absolute Monocyte Count 0.21 k/cumm (0.11-0.7); Absolute Neutrophil Count 6.05 k/cumm (1.2-6.7); Platelet Count 102 x1000/uL (130-400)
[2019-01-01 07:32] LABS: Anisocytosis 1+; Diff Comment Manual Differential; Hypochromasia 1+; Polychromasia Present; Promyelocytes % 0 %
[2019-01-01] MEDS: Dexamethasone 4 MG/ML VIAL 8 MG IVP ×2 (07:52→19:31)
[2019-01-01] MEDS: Normal Saline Flush 10 ML SYR IVP ×4 (07:53→21:44)
[2019-01-01 08:07] LABS: Vancomycin, Trough 14.9 ug/mL (10.0-20.0)
--- NOTE | 2019-01-01 08:21 | W.PM.PROGNOT ---
Date of Service Date of service: 01/01/19 Time of Service: 15:41 Assessment and Plan (1) Sepsis: Current visit: No Status: Acute Due to likely aspiration pneumonia. Improving. D/c vancomycin today, continue cefepime, levofloxacin. Off pressors - shock resolved. Discussed with - she would like to continue on current course. (2) Hypoxia: Current visit: No Status: Resolved Resolved. PE is a possibility - but hypoxia was rather transient, so aspiration event/pneumonia/pneumonitis seem more likely. Continue nebs, antibiotics, aspiration precautions. Monitor O2 sats (3) Aspiration pneumonia: Current visit: No Status: Acute pneumonitis, transient, improved - starting to deescalate abx. Evaluated by speech therapy - NPO except for thin clear fluids by , per speech therapy. (4) Acute adrenal insufficiency: Current visit: No Status: Acute Likely component of hypotension/shock. Now on decadron 8 mg IV BID. Monitor. (5) Encephalopathy acute: Current visit: Yes Status: Acute Does have evidence of ongoing seizures on EEG. decided against MRI because she does not think that the patient will ever make it to chemo/radiation, and she would not like to transfer the patient. She is ok with medical management and EEG. She would like to avoid ativan drip unless the patient was having visible seizures. Patient loaded with fosphenytoin today - continue keppra as well. prn ativan on board. (6) GBM (glioblastoma multiforme): Current visit: No Status: Chronic It appears that our goal is no longer to get the patient to chemo/radiation. Continue decadron, anticonvulsants. Comfort care once starts to have visible seizures again. (7) Elevated troponin: Current visit: Yes Status: Acute DDx: mild type 2 NSTEMI vs seizure vs CVA vs PE vs sepsis No evidence of ACS per echo - no regional wall motion abnormalities. Very high risk for anticoagulation. He is on baby asa. (8) Steroid-induced hyperglycemia: Current visit: Yes Status: Acute Continue SSI (9) Dysphagia: Current visit: Yes Status: Acute As above (10) Seizures: Current visit: Yes Status: Acute As above - keppra and fosphenytoin with prn ativan. Presently being monitored with an EEG (11) Edema of both legs: Current visit: Yes Status: Acute No DVTs on doppler - ok to start SCD's. (12) DVT prophylaxis: Current visit: Yes Status: Acute Avoid chemical dvt ppx due to recent brain surgery/GBM. Start SCDs (13) Discharge planning issues: Current visit: Yes Status: Acute DNR/DNI. In ICU, CVL in place - ok with current treatment. Palliative care on board Subjective Interval history since last seen: EEG today reveals multiple seizures, which got somewhat better after initiation of fosphenytoin. Palliative care meeting: decision to stay at [facility] rather than transfer and attempt to control seizures here. Per , she thinks we should only start ativan drip if he starts to have visible seizures again. BP's better, off pressors. More awake this am, but asleep when I saw him after he got 2 doses of ativan. Able to talk more clearly to nursing but falls asleep very fast if not interacting. Follows commands with the R-side; not on the Left - with nursing. Exam Narrative Exam Narrative: General: elderly male, asleep with EEG wires attached HEENT: eyes closed, MMM Heart: RRR, no m/r/g Lungs: quiet rhonchi anteriorly (snoring). GI: abdomen is soft, nontender, nondistended Extremities: 2+ BLE edema, symmetric, no c/c; trace pedal pulses Objective Objective Clinical Data: Abnormal lab results 01/01/19 01/01/19 Range/Units 06:35 06:35 RBC 3.53 L (4.50-6.00) m/cumm Hgb 11.5 L (13.5-17.5) g/dL Hct 32.9 L (40.0-50.0) % RDW 14.9 H (11.8-14.1) % Plt Count 102 L (130-400) x1000/uL Absolute Lymphocytes 0.41 L (1.2-3.4) k/cumm Creatinine 0.49 L (0.70-1.30) mg/dL Glucose 175 H (70-100) mg/dL Calcium 7.6 L (8.5-10.1) mg/dL Vital Signs Temperature 37.2 C 01/01/19 06:54 Temperature Source Temporal Artery Scan 01/01/19 06:54 Pulse 90 01/01/19 07:01 Pulse Rhythm Regular 12/31/18 08:02 Pulse 101 H 01/01/19 07:01 Respiratory Rate 17 01/01/19 07:01 Respiratory Effort Non-Labored 01/01/19 06:54 Respiratory Depth Normal 01/01/19 03:52 Respiratory Pattern Irregular 12/31/18 20:20 Blood Pressure 142/71 H 01/01/19 07:01 Blood Pressure Mean 86 01/01/19 07:01 Blood Pressure Position Supine 12/31/18 15:30 Pulse Oximetry 96 01/01/19 06:01 Oxygen Delivery Method Room Air 01/01/19 03:52 Oxygen Flow Rate 0 01/01/19 03:52 Pain Level 0 12/31/18 20:20 Comment 01/01/19 02:05 Intake & Output 12/31/18 12/31/18 01/01/19 11:59 23:59 11:59 Intake Total 400 / 1955.0 1555.0 / 1955.0 470 / 470 Output Total 1200 / 2200 1000 / 2200 1525 / 1525 Balance -800 / -245.0 555.0 / -245.0 -1055 / -1055 Weight 85.5 kg 84.7 kg Intake: IV 400 / 1955.0 1555.0 / 1955.0 470 / 470 Oral 0 / 0 Output: Urine 1200 / 2200 1000 / 2200 1525 / 1525 Other: Urine Color Light Diana Yellow Light Diana Urine Appearance Clear Clear Clear Comment figueroa to gravity with diana urine figueroa to gravity with diana urine Voiding Methods Indwelling Catheter Ileal Conduit (Right) Laboratory Results WBC 6.87 k/cumm (4.4-10.8) D 01/01/19 06:35 RBC 3.53 m/cumm (4.50-6.00) L 01/01/19 06:35 Hgb 11.5 g/dL (13.5-17.5) L 01/01/19 06:35 Hct 32.9 % (40.0-50.0) L 01/01/19 06:35 MCV 93.2 fL (80-95) 01/01/19 06:35 MCH 32.6 pg (27.0-33.0) 01/01/19 06:35 MCHC 35.0 g/dL (32.0-36.0) 01/01/19 06:35 RDW 14.9 % (11.8-14.1) H 01/01/19 06:35 Plt Count 102 x1000/uL (130-400) L 01/01/19 06:35 MPV 9.4 fL (8.0-11.0) 01/01/19 06:35 Immature Gran % See Differential 01/01/19 06:35 88.0 01/01/19 06:35 54.0 % 12/31/18 06:25 6.0 01/01/19 06:35 Atypical Lymphs % 1 12/31/18 06:25 3.0 01/01/19 06:35 0.0 01/01/19 06:35 0.0 01/01/19 06:35 3.0 % 01/01/19 06:35 0.0 % 01/01/19 06:35 0 % 01/01/19 06:35 Absolute Neutrophils 6.05 k/cumm (1.2-6.7) 01/01/19 06:35 Absolute Lymphocytes 0.41 k/cumm (1.2-3.4) L 01/01/19 06:35 Absolute Monocytes 0.21 k/cumm (0.11-0.7) 01/01/19 06:35 Absolute Eosinophils 0.00 k/cumm (0.0-0.7) 01/01/19 06:35 Absolute Basophils 0.00 k/cumm (0.0-0.2) 01/01/19 06:35 Manual differential 01/01/19 06:35 RBC Morphology See below 01/01/19 06:35 Present 01/01/19 06:35 1+ 01/01/19 06:35 1+ 01/01/19 06:35 Sodium 137 mmol/L (136-145) 01/01/19 06:35 Potassium 3.6 mmol/L (3.5-5.1) 01/01/19 06:35 Chloride 102 mmol/L (98-107) 01/01/19 06:35 Carbon Dioxide 25.0 mmol/L (21.0-32.0) 01/01/19 06:35 10.0 mmol/L (3-11) 01/01/19 06:35 BUN 17 mg/dL (7-18) 01/01/19 06:35 0.49 mg/dL (0.70-1.30) L 01/01/19 06:35 >= 60.00 (mL/min/1.73m2) 01/01/19 06:35 Glucose 175 mg/dL (70-100) H 01/01/19 06:35 1.0 mmol/l (0.6-1.4) 01/01/19 06:35 Calcium 7.6 mg/dL (8.5-10.1) L 01/01/19 06:35 Magnesium 2.1 mg/dL (1.8-2.4) 01/01/19 06:35 0.9 mg/dL (0.2-1.0) 12/30/18 06:36 AST 25 U/L (15-37) 12/30/18 06:36 ALT 41 U/L (12-78) 12/30/18 06:36 50 U/L (46-116) 12/30/18 06:36 198 U/L (39-308) 12/31/18 06:25 0.09 ng/mL (0.00-0.06) H* 12/30/18 06:36 4.8 g/dL (6.4-8.2) L 12/30/18 06:36 2.1 g/dL (3.4-5.0) L 12/30/18 06:36 125 U/L (73-393) 12/29/18 09:30 TSH 0.44 uIU/mL (0.358-3.74) 12/29/18 20:05 Yellow (Yellow) 12/30/18 22:35 Clear (Clear) 12/30/18 22:35 6.5 (5-8) 12/30/18 22:35 Ur Specific [place] 1.020 (1.005-1.025) 12/30/18 22:35 30 mg/dL (Negative) H 12/30/18 22:35 Trace mg/dL (Negative) H 12/30/18 22:35 Small (Negative) H 12/30/18 22:35 Negative (Negative) 12/30/18 22:35 Negative (Negative) 12/30/18 22:35 2.0 EU/dL (Up TO 0.2) H 12/30/18 22:35 Ur Leukocyte Esterase Negative (Negative) 12/30/18 22:35 5-10 (0-2) H 12/30/18 22:35 0-2 HPF (0-5) 12/30/18 22:35 Ur Epithelial Cells Few HPF (Negative) 12/30/18 22:35 Negative HPF (Negative) 12/30/18 22:35 Few HPF (Negative) 12/30/18 22:35 3-5 hyaline LPF (Negative) 12/30/18 22:35 Heavy (Negative) 12/30/18 22:35 Ur Culture Indicated? C&s done as ordered 12/30/18 22:35 250 mg/dL (Negative) H 12/30/18 22:35 Vancomycin Trough 14.9 ug/mL (10.0-20.0) 01/01/19 06:35
--- NOTE | 2019-01-01 08:23 | CMPROGNOTE_ITS ---
- If Service Date Differs Date of service: 01/01/19 Time of Service: 08:23 Care Management Progress Note S/O: CM met with Nico and his Elsy. Nico was having an EEG and was drowsy from medications he had received. Elsy talked at length about Nico's healthcare since he was first diagnosed with the glioblastoma in October. She was teary at times talking about the challenges of following his wishes yet not depriving him of care prematurely. They were unsure about proceeding with the MRI since it is so uncomfortable for Nico. The loud noises really hurt his head according to Elsy. Dr. Tracey came to see him while CM was in the room and discussed the goals of care very clearly. She stated that if they wish to be aggressive with treatment of the seizures, then the MRI must be done and Nico will need to be transferred to [facility]. If they choose a path where comfort is the main goal, then he can remain at [facility]. Dr. Hopkins came to see Nico and Elsy. Together they decided not to transfer Nico to [facility] or to pursue chemo and radiation. The goal of care will be for Nico to return to [facility] once his mentation clears. A: 78 year old male admitted to [facility] 12/29/18 for ACG, Glioblastoma with AMS, Seizure, Left Hemiparesis P: Nico will continue to be closely monitored and his seizures will be treated. Anticipate Nico will return to [facility] once he stabilizes. CM will continue to support patient and family and coordinate identified service supports.
[2019-01-01 08:30] LABS: Procalcitonin 2.6 ng/mL
--- NOTE | 2019-01-01 09:46 | OT.INNT ---
Date of service: 01/01/19 Time of Service: 08:20 Occupational Therapy Notes 01/01/19 OT went in to see pt, pt is not able to verbally respond to OT and has very limited (I) in functional movements with UE. Pt's was in the room and nursing and discussion was had that pt is not appropriate for skilled OT services at this time. If pt does require OT services in the future, OT will need a new referral. At this time OT will discharge order for skilled OT services based on pt's current level of function. Milly Paul, OTR/L [facility]
[2019-01-01] MEDS: LORazepam 2 MG/ML VIAL 1 MG IVP ×2 (11:42→11:51)
--- NOTE | 2019-01-01 12:10 | PDOC.EEG_ITS ---
EEG: [facility] Department of Neurology INPATIENT EEG REPORT - PROLONGED RECORDING Date of Recordin01/01/19 at 10:34:41 to 01/01/19 at 14:04:00 Interpreting Physician: Dr. Jodie May Reason for study: Mr. 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 Current Medications: Current Medications Acetaminophen (Tylenol) 1,000 mg PO Q4H PRN PRN Acetaminophen (Tylenol) 650 mg WI Q6H PRN PRN Last Admin: 12/30/18 14:35 Dose: 650 mg Documented by: Al Hydrox/Mg Hydrox/Simethicone (Mylanta Liquid) 30 ml PO Q2H PRN PRN Albuterol Sulfate (Proventil Updraft) 2.5 mg UPD Q2H PRN PRN Aspirin () 81 mg PO DAILY [facility] Last Admin: 12/30/18 08:43 Dose: 81 mg Documented by: Cilostazol (Pletal) 100 mg PO BID [facility] Last Admin: 12/30/18 20:04 Dose: 100 mg Documented by: Dexamethasone (Decadron Phosphate) 8 mg IVP BID [facility] Last Admin: 01/01/19 07:52 Dose: 8 mg Documented by: Dextrose (Insta-Glucose) 0 gm PO DIRECTED PRN Dextrose/Water () 0 gm IVP DIRECTED PRN Dimethicone/Zinc Oxide (Dahlia Protect Cream) 0 gm TP PRN PRN Last Admin: 12/30/18 14:40 Dose: 1 applic Documented by: Docusate Sodium (Colace) 100 mg PO TID PRN PRN Escitalopram Oxalate (Lexapro) 10 mg PO DAILY [facility] Last Admin: 12/30/18 08:44 Dose: 10 mg Documented by: Fosphenytoin Sodium (Cerebyx) 200 mg IV DAILY [facility] Vancomycin HCl/Dextrose (Vancocin Injection) 1 gm in 200 mls @ 133.333 mls/hr IV Q10H [facility]; Protocol Last Admin: 01/01/19 07:52 Dose: 133 mls/hr Documented by: Levofloxacin (Levaquin Premixed Bag) 500 mg in 100 mls @ 100 mls/hr IVPB Q24H [facility]; Protocol Last Infusion: 12/31/18 21:41 Dose: Infused Documented by: Levetiracetam 1,750 mg/ Sodium (Chloride) 117.5 mls @ 400 mls/hr IVPB BID [facility] Last Admin: 01/01/19 07:52 Dose: 400 mls/hr Documented by: Acetaminophen (Ofirmev) 1,000 mg in 100 mls @ 400 mls/hr IVPB Q6H PRN PRN Last Infusion: 01/01/19 03:19 Dose: Infused Documented by: Sodium Chloride (Saline 500ml Bag) 500 mls @ 0 mls/hr IV PRN PRN Last Infusion: 12/31/18 12:16 Dose: Infused Documented by: Ceftazidime 2,000 mg/ Sodium (Chloride) 100 mls @ 200 mls/hr IVPB Q8H [facility] Last Infusion: 01/01/19 07:52 Dose: Infused Documented by: IV Miscellaneous Supplies () 1 each IV DIRECTED [facility] Insulin Aspart (Novolog Flexpen) 0 units SC Q6H [facility]; Protocol Last Admin: 01/01/19 06:23 Dose: 1 units Documented by: Lorazepam (Ativan Injection) 1 mg IVP Q2H PRN PRN Magnesium Hydroxide (Milk Of Magnesia) 30 ml PO DAILY PRN PRN Pantoprazole Sodium (Protonix Injection) 40 mg IVP Q24H [facility] Last Admin: 12/31/18 18:53 Dose: 40 mg Documented by: Polyethylene Glycol (Miralax) 17 gm PO DAILY PRN PRN PRN Reason: Constipation Potassium Chloride (K-Dur) 10 meq PO DAILY [facility] Last Admin: 12/30/18 08:44 Dose: 10 meq Documented by: Sodium Chloride (Saline Flush 10 Ml Syringe) 0 ml IVP PRN PRN Last Admin: 01/01/19 11:54 Dose: 40 ml Documented by: METHODS: A 21 channel digitized electroencephalogram was performed in the [facility] Med/Surg Floor or ICU. The 10/20 international system of electrode placement was used and bipolar and referential electrode montages were recorded. In addition to EEG the patient was monitored for EKG and lateral/vertical eye movements. Activation procedures of photic stimulation and hyperventilation were performed if applicable. Video was used during activation procedures and during events where applicable. The duration of the recording was ~3.5 hours. . DESCRIPTION OF EEG: The patient was noted to be awake, drowsy, and alseep during the recording. During maximal wakefulness, there was no recognizable PDR. Sleep is manifested by spindles at the vertex. Left Hemisphere: a mix of moderate-amplitude, polymorphic, delta and theta activity. Right Hemisphere: There was continuous, high-amplitude, sharply-contoured activity intermixed with beta frequency activity over the right hemisphere, consistent with a breach rhythm. There were frequent, high-amplitude, right centro-temporal spike waves at C4/T4 that at times become periodic consistent with PLEDs (Periodic Lateralized Epileptiform Discharges). Ictal Events: There were frequent bursts of apparent right centro-temporal electrographic seizure (too numerous to count and describe individually) manifested by an evolution in spike/polyspike activity and then subsequent de crease (lasting ~1min), followed by brief burst suppression-type pattern in the right hemisphere. There were no apparent clinical correlations. These results were called into hospitalist Dr. Tracey at 1130am with recommendations. 1mg IV Ativan given at 1142am and 1151am. IV VPA not available at our hospital. IV 1000mg fosphenytoin given at 1152am. Update at 1355: Electrographic seizures continue. Perhaps slight reduction in frequency from 8-9/15min to 5-6/15minutes. No clinic activity apparent. Discussed with hospitalist. Palliative is consulting. Then MRI brain will be performed after which decision will be made on plan of care (aggressive including transfer for continuous EEG vs palliative). Update at 1500: EEG completed and note finalized. Activating Procedures: Photic stimulation and hyperventilation were not performed. EKG: EKG revealed a normal sinus rhythm. INTERPRETATION: This EEG is abnormal due to: #1. Frequent, right centro-temporal electrographic seizures without clinical correlate, consistent with focal non-motor partial status epilepticus. #2. Frequent right centro-temporal PLEDs. #3. Moderate generalized slowing and loss of PDR. #4. Higher amplitude activity in the right hemisphere consistent with breach rhythm (previous craniotomy).. PRIOR EEG: none at [facility] [place] [place] right central spike-waves that correlated with left foot myoclonus and c/w with cortial myoclonus CLINICAL CORRELATION: This recording is consistent with focal, non-motor, partial status epilepticus in the right hemisphere. There was mild improvement s/p addition of Ativan and fosphenytoin. In addition, there are frequent PLEDs, which fall on the ictal/interical spectrum, and are likely secondary to his underling mass/GBM. The background slowing is suggestive of a moderate diffuse cerebral encephalopathy. Jodie May MD
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
[2019-01-01] MEDS: levoFLOXacin 500 MG/100 ML BAG 100 MG IVPB (15:41)
--- NOTE | 2019-01-01 16:06 | W.PM.PROGNOT ---
Date of Service Date of service: 01/01/19 Time of Service: 16:06 Assessment and Plan (1) GBM (glioblastoma multiforme): Current visit: No Status: Chronic (2) Altered mental state: Current visit: Yes Status: Acute Qualifiers: Altered mental status type: transient alteration of awareness Qualified Code(s): R40.4 - Transient alteration of awareness (3) Myoclonus epilepsy: Current visit: No Status: Acute (4) Subclinical status epilepticus: Current visit: Yes Status: Acute Mr. Arreola is a 78-year-old, right-handed man with a right GBM s/p craniotomy in October 2018 who was admitted with increased myoclonic activity, headaches, left hemiparesis, dysphagia, and confusion who subsequently went into shock secondary to aspiration pneumonia, now found to be in right hemisphere subclinical status epilepticus. He remains somnolent with severe dysphagia, dysarthria, and hypophonia along with generalized weakness and apparent left hemineglect. After discussion with Ms. Arreola and Palliative care, they are not pursuing transfer to higher level of care or updated brain MRI. They would like to continue to treat seizures for possible improvement in status epilepticus, but he remains DNR/DNI. It should be said that treating focal status epilepticus is very difficult even with intubation/sedation with the goal of burst suppression. I agreed to trial of varying AEDs overnight (limited to IV only as he remains NPO), but am limited by DNI status. He will continue LEV 1750mg BID, dexamethasone 8mg BID, and PHE 200mg daily. A PHE level will be checked in am. He will receive 300mg IV phenobarbital now. I will review EEG in am. We have IV VPA in the hospital and the pharmacy is ordering IV lacosamide. I will continue to follow. Please call with any questions or concerns. DISCLAIMER: This note was created using [employer] voice recognition software. Subjective Interval history since last seen: He had a long run of SVT this am but otherwise no events. He remains somnolent. An EEG was performed this am and consistent with right focal non-motor subclinical status epilepticus. Yesterday, dexamethasone was increased to 8mg BID. He was given 1000mg IV Keppra and increased maintenance to 1750mg BID. This am he was given 1mg IV Ativan x2 with no change in EEG. He was then given 1000mg IV fosphenytoin with mild improvement, but continued status epilepticus. A meeting with palliative and Ms. Arreola was held. The decision was made to not pursue a brain MRI. She also did not want to pursue transfer to higher level of care. They did opt to continue EEG (we do not have continuous vEEG here) and treatment with AEDs that would not require intubation to try to control status and improve mental status. Exam Narrative Exam Narrative: Physical Exam: Constitutional: no acute distress, somnolent Neck: Supple, no meningismus CV: RRR Resp: rhonchi bilaterally Abd: Soft, nontender, nondistended, +BS Extem: Mild bilateral LE edema Neuro: MS/Language/Speech: somnolent Motor: hypotonic throughout Objective Objective Clinical Data: Abnormal lab results 01/01/19 01/01/19 Range/Units 06:35 06:35 RBC 3.53 L (4.50-6.00) m/cumm Hgb 11.5 L (13.5-17.5) g/dL Hct 32.9 L (40.0-50.0) % RDW 14.9 H (11.8-14.1) % Plt Count 102 L (130-400) x1000/uL Absolute Lymphocytes 0.41 L (1.2-3.4) k/cumm Creatinine 0.49 L (0.70-1.30) mg/dL Glucose 175 H (70-100) mg/dL Calcium 7.6 L (8.5-10.1) mg/dL Vital Signs Temperature 37.3 C 01/01/19 09:00 Temperature Source Temporal Artery Scan 01/01/19 09:00 Pulse 69 01/01/19 14:01 Pulse Rhythm Regular 12/31/18 08:02 Pulse 80 01/01/19 14:01 Respiratory Rate 16 01/01/19 14:01 Respiratory Effort Non-Labored 01/01/19 09:00 Respiratory Depth Shallow 01/01/19 07:45 Respiratory Pattern Normal 01/01/19 07:45 Blood Pressure 108/48 L 01/01/19 14:01 Blood Pressure Mean 63 01/01/19 14:01 Blood Pressure Position Supine 12/31/18 15:30 Pulse Oximetry 93 L 01/01/19 14:01 Oxygen Delivery Method Room Air 01/01/19 03:52 Oxygen Flow Rate 0 01/01/19 03:52 Pain Level 0 01/01/19 11:52 Comment 01/01/19 02:05 Intake & Output 12/31/18 01/01/19 01/01/19 23:59 11:59 23:59 Intake Total 1555.0 / 1955.0 500 / 737.5 237.5 / 737.5 Output Total 1000 / 2200 1525 / 2450 925 / 2450 Balance 555.0 / -245.0 -1025 / -1712.5 -687.5 / -1712.5 Weight 84.7 kg Intake: IV 1555.0 / 1955.0 500 / 737.5 237.5 / 737.5 Oral 0 / 0 Output: Urine 1000 / 2200 1525 / 2450 925 / 2450 Other: Urine Color Yellow Light Diana Light Diana Urine Appearance Clear Clear Clear Comment figueroa to gravity with diana urine Figueroa in place and draining Laboratory Results WBC 6.87 k/cumm (4.4-10.8) D 01/01/19 06:35 RBC 3.53 m/cumm (4.50-6.00) L 01/01/19 06:35 Hgb 11.5 g/dL (13.5-17.5) L 01/01/19 06:35 Hct 32.9 % (40.0-50.0) L 01/01/19 06:35 MCV 93.2 fL (80-95) 01/01/19 06:35 MCH 32.6 pg (27.0-33.0) 01/01/19 06:35 MCHC 35.0 g/dL (32.0-36.0) 01/01/19 06:35 RDW 14.9 % (11.8-14.1) H 01/01/19 06:35 Plt Count 102 x1000/uL (130-400) L 01/01/19 06:35 MPV 9.4 fL (8.0-11.0) 01/01/19 06:35 Immature Gran % See Differential 01/01/19 06:35 88.0 01/01/19 06:35 54.0 % 12/31/18 06:25 6.0 01/01/19 06:35 Atypical Lymphs % 1 12/31/18 06:25 3.0 01/01/19 06:35 0.0 01/01/19 06:35 0.0 01/01/19 06:35 3.0 % 01/01/19 06:35 0.0 % 01/01/19 06:35 0 % 01/01/19 06:35 Absolute Neutrophils 6.05 k/cumm (1.2-6.7) 01/01/19 06:35 Absolute Lymphocytes 0.41 k/cumm (1.2-3.4) L 01/01/19 06:35 Absolute Monocytes 0.21 k/cumm (0.11-0.7) 01/01/19 06:35 Absolute Eosinophils 0.00 k/cumm (0.0-0.7) 01/01/19 06:35 Absolute Basophils 0.00 k/cumm (0.0-0.2) 01/01/19 06:35 Manual differential 01/01/19 06:35 RBC Morphology See below 01/01/19 06:35 Present 01/01/19 06:35 1+ 01/01/19 06:35 1+ 01/01/19 06:35 Sodium 137 mmol/L (136-145) 01/01/19 06:35 Potassium 3.6 mmol/L (3.5-5.1) 01/01/19 06:35 Chloride 102 mmol/L (98-107) 01/01/19 06:35 Carbon Dioxide 25.0 mmol/L (21.0-32.0) 01/01/19 06:35 10.0 mmol/L (3-11) 01/01/19 06:35 BUN 17 mg/dL (7-18) 01/01/19 06:35 0.49 mg/dL (0.70-1.30) L 01/01/19 06:35 >= 60.00 (mL/min/1.73m2) 01/01/19 06:35 Glucose 175 mg/dL (70-100) H 01/01/19 06:35 1.0 mmol/l (0.6-1.4) 01/01/19 06:35 Calcium 7.6 mg/dL (8.5-10.1) L 01/01/19 06:35 Magnesium 2.1 mg/dL (1.8-2.4) 01/01/19 06:35 0.9 mg/dL (0.2-1.0) 12/30/18 06:36 AST 25 U/L (15-37) 12/30/18 06:36 ALT 41 U/L (12-78) 12/30/18 06:36 50 U/L (46-116) 12/30/18 06:36 198 U/L (39-308) 12/31/18 06:25 0.09 ng/mL (0.00-0.06) H* 12/30/18 06:36 4.8 g/dL (6.4-8.2) L 12/30/18 06:36 2.1 g/dL (3.4-5.0) L 12/30/18 06:36 125 U/L (73-393) 12/29/18 09:30 2.6 ng/mL 01/01/19 06:35 TSH 0.44 uIU/mL (0.358-3.74) 12/29/18 20:05 Yellow (Yellow) 12/30/18 22:35 Clear (Clear) 12/30/18 22:35 6.5 (5-8) 12/30/18 22:35 Ur Specific [place] 1.020 (1.005-1.025) 12/30/18 22:35 30 mg/dL (Negative) H 12/30/18 22:35 Trace mg/dL (Negative) H 12/30/18 22:35 Small (Negative) H 12/30/18 22:35 Negative (Negative) 12/30/18 22:35 Negative (Negative) 12/30/18 22:35 2.0 EU/dL (Up TO 0.2) H 12/30/18 22:35 Ur Leukocyte Esterase Negative (Negative) 12/30/18 22:35 5-10 (0-2) H 12/30/18 22:35 0-2 HPF (0-5) 12/30/18 22:35 Ur Epithelial Cells Few HPF (Negative) 12/30/18 22:35 Negative HPF (Negative) 12/30/18 22:35 Few HPF (Negative) 12/30/18 22:35 3-5 hyaline LPF (Negative) 12/30/18 22:35 Heavy (Negative) 12/30/18 22:35 Ur Culture Indicated? C&s done as ordered 12/30/18 22:35 250 mg/dL (Negative) H 12/30/18 22:35 Vancomycin Trough 14.9 ug/mL (10.0-20.0) 01/01/19 06:35
[2019-01-01] MEDS: PHENobarbital 130 MG/ML VIAL 300 MG IVP (17:53)
--- NOTE | 2019-01-01 17:54 | W.PALPGNOTE ---
Date of service: 01/01/19 Assessment and Plan (1) GBM (glioblastoma multiforme): Current visit: No Status: Chronic This is inevitably a terminal diagnosis, unfortunately. Family is aware and accepting overall. Nico's course has been more dire than usual. Control of his seizures has become his primary medical need. Millie Tracey and Hao Brown have done an excellent job getting him comfortable. Dr Tracey and I discussed perhaps starting a low dose IV ativan drip if the fosphenytoin and keppra combined are not effective at preventing his seizures. His and sons know that he is dying. They would prefer that Nico stay at [facility]. They have good rapport with and trust in Dr Tracey. His MRI was cancelled, as I think he has declared a progression of his disease by his seizures. His life expectancy is measured in hours to days, I think. I would be surprised if he survived a week, though this is possible. His does not feel she is able to care for him at home. She would prefer he stay at [facility] but is willing to have him transferred back to Rehab. She says that Nico was happy there. (2) Aspiration pneumonia: Current visit: No Status: Acute He had an episode of low BPs requiring pressors. Unclear of exact cause, possibly sepsis related to asp pneumonia Nico's if VERY clear that he would not want ANY artificial feeding, no GTube, no feeding tube of any kind. (3) Goals of care, counseling/discussion: Current visit: Yes Status: Acute would like her to be as comfortable as possible. She has seen his acute decline since admission. He is comfortable during my visit. Pipe Racker care appreciated. I think he will need to transition officially to [facility] tomorrow. Family processing and addressing his changing status. (4) Palliative care patient: Current visit: Yes Status: Acute will continue to see throughout his stay if desired by Hospitalist and family Subjective Interval history since last seen: Nico has developed intractable seizures again since I last saw him. He had an EEG today that showed multiple seizures occurring in a very short interval, improved with the addition of fosphenytoin. He still had his EEG leads on when I was seeing him. He saw Dr May, neurologist, today. He has received fosphenytoin, keppra and lorazepam to help control his seizures. When I was seeing him, he appeared comfortable. He has no seizure like activity. He was resting quietly. There has been discussion about whether he should get an MRI. Clinically, it appears clear to me that his tumor has progressed. He would not survive another craniotomy nor is he eligible for radiation or chemotherapy to treat his glio. Note that he has not been well enough to start either type of treatment since he was diagnosed. Given this, an MRI would not change his treatment plan. I saw him in the presence of his and Shonda Juares, [facility] senior marketing manager as well as Cely Bettencourt, MECHANICAL DESIGN[employer] student. His reported that she would prefer to stay at [facility] rather than have her transferred to [facility], but is willing to go if Dr Tracey, hospitalist, thinks this is necessary to control his seizures. He did not appear to be having any clinical seizures during my visit. His prognosis becomes ever more grim each day. His is aware that her is dying. She would prefer he stay locally so she and their 3 sons can visit regularly. However, her 's comfort is paramount. Exam Narrative Exam Narrative: General: elderly male, asleep with EEG wires attached HEENT: eyes closed, MMM Heart: RRR, no m/r/g Lungs: quiet rhonchi anteriorly (snoring). GI: abdomen is soft, nontender, nondistended Extremities: 2+ BLE edema, symmetric, no c/c; trace pedal pulses Objective Objective Clinical Data: Abnormal lab results 01/01/19 01/01/19 Range/Units 06:35 06:35 RBC 3.53 L (4.50-6.00) m/cumm Hgb 11.5 L (13.5-17.5) g/dL Hct 32.9 L (40.0-50.0) % RDW 14.9 H (11.8-14.1) % Plt Count 102 L (130-400) x1000/uL Absolute Lymphocytes 0.41 L (1.2-3.4) k/cumm Creatinine 0.49 L (0.70-1.30) mg/dL Glucose 175 H (70-100) mg/dL Calcium 7.6 L (8.5-10.1) mg/dL Vital Signs Temperature 97.2 F L 01/01/19 16:44 Temperature Source Temporal Artery Scan 01/01/19 16:44 Pulse 71 01/01/19 16:44 Pulse Rhythm Regular 12/31/18 08:02 Pulse 73 01/01/19 16:00 Respiratory Rate 16 01/01/19 16:44 Respiratory Effort 01/01/19 16:44 Respiratory Depth Normal 01/01/19 16:44 Respiratory Pattern Normal 01/01/19 16:44 Blood Pressure 108/53 L 01/01/19 16:44 Blood Pressure Mean 71 01/01/19 16:44 Blood Pressure Position Supine 01/01/19 16:44 Pulse Oximetry 92 L 01/01/19 16:44 Oxygen Delivery Method Room Air 01/01/19 16:44 Oxygen Flow Rate 0 01/01/19 16:44 Pain Level 0 01/01/19 16:44 Comment 01/01/19 02:05 Intake & Output 12/31/18 01/01/19 01/01/19 23:59 11:59 23:59 Intake Total 1555.0 / 1955.0 500 / 757.5 257.5 / 757.5 Output Total 1000 / 2200 1525 / 2450 925 / 2450 Balance 555.0 / -245.0 -1025 / -1692.5 -667.5 / -1692.5 Weight 186 lb 11.704 oz Intake: IV 1555.0 / 1955.0 500 / 757.5 257.5 / 757.5 Oral 0 / 0 Output: Urine 1000 / 2200 1525 / 2450 925 / 2450 Other: Urine Color Yellow Light Diana Light Diana Urine Appearance Clear Clear Clear Comment figueroa to gravity with diana urine Figueroa in place and draining Figueroa in place, draining diana urine w/sediment. Laboratory Results WBC 6.87 k/cumm (4.4-10.8) D 01/01/19 06:35 RBC 3.53 m/cumm (4.50-6.00) L 01/01/19 06:35 Hgb 11.5 g/dL (13.5-17.5) L 01/01/19 06:35 Hct 32.9 % (40.0-50.0) L 01/01/19 06:35 MCV 93.2 fL (80-95) 01/01/19 06:35 MCH 32.6 pg (27.0-33.0) 01/01/19 06:35 MCHC 35.0 g/dL (32.0-36.0) 01/01/19 06:35 RDW 14.9 % (11.8-14.1) H 01/01/19 06:35 Plt Count 102 x1000/uL (130-400) L 01/01/19 06:35 MPV 9.4 fL (8.0-11.0) 01/01/19 06:35 Immature Gran % See Differential 01/01/19 06:35 88.0 01/01/19 06:35 54.0 % 12/31/18 06:25 6.0 01/01/19 06:35 Atypical Lymphs % 1 12/31/18 06:25 3.0 01/01/19 06:35 0.0 01/01/19 06:35 0.0 01/01/19 06:35 3.0 % 01/01/19 06:35 0.0 % 01/01/19 06:35 0 % 01/01/19 06:35 Absolute Neutrophils 6.05 k/cumm (1.2-6.7) 01/01/19 06:35 Absolute Lymphocytes 0.41 k/cumm (1.2-3.4) L 01/01/19 06:35 Absolute Monocytes 0.21 k/cumm (0.11-0.7) 01/01/19 06:35 Absolute Eosinophils 0.00 k/cumm (0.0-0.7) 01/01/19 06:35 Absolute Basophils 0.00 k/cumm (0.0-0.2) 01/01/19 06:35 Manual differential 01/01/19 06:35 RBC Morphology See below 01/01/19 06:35 Present 01/01/19 06:35 1+ 01/01/19 06:35 1+ 01/01/19 06:35 Sodium 137 mmol/L (136-145) 01/01/19 06:35 Potassium 3.6 mmol/L (3.5-5.1) 01/01/19 06:35 Chloride 102 mmol/L (98-107) 01/01/19 06:35 Carbon Dioxide 25.0 mmol/L (21.0-32.0) 01/01/19 06:35 10.0 mmol/L (3-11) 01/01/19 06:35 BUN 17 mg/dL (7-18) 01/01/19 06:35 0.49 mg/dL (0.70-1.30) L 01/01/19 06:35 >= 60.00 (mL/min/1.73m2) 01/01/19 06:35 Glucose 175 mg/dL (70-100) H 01/01/19 06:35 1.0 mmol/l (0.6-1.4) 01/01/19 06:35 Calcium 7.6 mg/dL (8.5-10.1) L 01/01/19 06:35 Magnesium 2.1 mg/dL (1.8-2.4) 01/01/19 06:35 0.9 mg/dL (0.2-1.0) 12/30/18 06:36 AST 25 U/L (15-37) 12/30/18 06:36 ALT 41 U/L (12-78) 12/30/18 06:36 50 U/L (46-116) 12/30/18 06:36 198 U/L (39-308) 12/31/18 06:25 0.09 ng/mL (0.00-0.06) H* 12/30/18 06:36 4.8 g/dL (6.4-8.2) L 12/30/18 06:36 2.1 g/dL (3.4-5.0) L 12/30/18 06:36 125 U/L (73-393) 12/29/18 09:30 2.6 ng/mL 01/01/19 06:35 TSH 0.44 uIU/mL (0.358-3.74) 12/29/18 20:05 Yellow (Yellow) 12/30/18 22:35 Clear (Clear) 12/30/18 22:35 6.5 (5-8) 12/30/18 22:35 Ur Specific [place] 1.020 (1.005-1.025) 12/30/18 22:35 30 mg/dL (Negative) H 12/30/18 22:35 Trace mg/dL (Negative) H 12/30/18 22:35 Small (Negative) H 12/30/18 22:35 Negative (Negative) 12/30/18 22:35 Negative (Negative) 12/30/18 22:35 2.0 EU/dL (Up TO 0.2) H 12/30/18 22:35 Ur Leukocyte Esterase Negative (Negative) 12/30/18 22:35 5-10 (0-2) H 12/30/18 22:35 0-2 HPF (0-5) 12/30/18 22:35 Ur Epithelial Cells Few HPF (Negative) 12/30/18 22:35 Negative HPF (Negative) 12/30/18 22:35 Few HPF (Negative) 12/30/18 22:35 3-5 hyaline LPF (Negative) 12/30/18 22:35 Heavy (Negative) 12/30/18 22:35 Ur Culture Indicated? C&s done as ordered 12/30/18 22:35 250 mg/dL (Negative) H 12/30/18 22:35 Vancomycin Trough 14.9 ug/mL (10.0-20.0) 01/01/19 06:35
[2019-01-01] MEDS: Pantoprazole 40 MG VIAL IVP (18:14)
[2019-01-02] VITALS (15 sets, daily range): BP systolic 120–147; BP diastolic 61–78; PULSE 61–79; RESP 13–20; TEMP 36.4–37.2; O2SAT 93–99
[2019-01-02] MEDS: Insulin Aspart 300 UNITS/3 ML PEN SC ×3 (00:55→12:51)
[2019-01-02] MEDS: Normal Saline Flush 10 ML SYR IVP ×2 (06:24→12:51)
[2019-01-02] MEDS: cefTAZidime 2,000 MG in Normal Saline 100 ML 200 MG IVPB ×2 (06:24→14:57)
[2019-01-02 07:20] LABS: Abs Immature Grans 0.29 k/cumm (0.0-0.09); HGB 11.4 g/dL (13.5-17.5); Mean Corp. HGB Concentration 33.5 g/dL (32.0-36.0); Mean Corpuscular Hemoglobin 31.6 pg (27.0-33.0); Mean Corpuscular Volume 94.2 fL (80-95); Mean Platelet Volume 9.5 fL (8.0-11.0); Platelet Count 101 x1000/uL (130-400); RBC 3.61 m/cumm (4.50-6.00); RBC Distribution Width 15.3 % (11.8-14.1)
[2019-01-02 07:31] LABS: PHENYTOIN (DILANTIN) 10.4 ug/mL (10.0-20.0)
[2019-01-02 07:32] LABS: Anion Gap 8.4 mmol/L (3-11); BUN 23 mg/dL (7-18); CO2 25.6 mmol/L (21.0-32.0); CREATININE 0.41 mg/dL (0.70-1.30); Calcium 7.9 mg/dL (8.5-10.1); Chloride 103 mmol/L (98-107); Glucose 170 mg/dL (70-100); Magnesium 2.1 mg/dL (1.8-2.4); Potassium 3.7 mmol/L (3.5-5.1); Sodium 137 mmol/L (136-145)
[2019-01-02 07:52] LABS: Procalcitonin 1.5 ng/mL
[2019-01-02 08:19] LABS: Anisocytosis 1+; Diff Comment Manual Differential; Polychromasia Present
--- NOTE | 2019-01-02 08:21 | W.PM.PROGNOT ---
Date of Service Date of service: 01/02/19 Time of Service: 08:21 Assessment and Plan (1) Encephalopathy acute: Current visit: Yes Status: Acute Due to seizures and, at this point, possible sedation from phenobarbital. Vimpat was given this afternoon after depakote load this morning. We are discontinuing the EEG, transitioning the patient to fosphenytoin and IV depakote, which seemed to have had the best effect so far. However, if the patient does not have meaningful wakefullness with these medications on board, we have to talk comfort measures. (2) Sepsis: Current visit: No Status: Acute Due to likely aspiration pneumonia. Improving. Continue cefepime, levofloxacin. Off pressors - shock resolved. (3) Hypoxia: Current visit: No Status: Resolved Resolved. PE is a possibility - but hypoxia was rather transient, so aspiration event/pneumonia/pneumonitis seem more likely. Also, venous dopplers for negative for DVT. Continue nebs, antibiotics, aspiration precautions. Monitor O2 sats (4) Aspiration pneumonia: Current visit: No Status: Acute pneumonitis, transient, improved - continue current antibiotics. Evaluated by speech therapy - NPO except for thin clear fluids by , per speech therapy - however, at this point, any PO intake is unsafe.. (5) Acute adrenal insufficiency: Current visit: No Status: Acute Likely component of hypotension/shock. Now on decadron 8 mg IV BID. Monitor. (6) GBM (glioblastoma multiforme): Current visit: No Status: Chronic Goal is no longer to get the patient to chemo/radiation, but to control seizures and achieve meaningful wakefulness. Continue decadron, anticonvulsants. Comfort care once starts to have visible seizures again, as per my latest conversation wiht . (7) Elevated troponin: Current visit: Yes Status: Acute DDx: mild type 2 NSTEMI vs seizure vs CVA vs PE vs sepsis No evidence of ACS per echo - no regional wall motion abnormalities. Very high risk for anticoagulation. He is on baby asa. (8) Steroid-induced hyperglycemia: Current visit: Yes Status: Acute Continue SSI (9) Dysphagia: Current visit: Yes Status: Acute As above (10) Seizures: Current visit: Yes Status: Acute As above (11) Edema of both legs: Current visit: Yes Status: Acute Improved. No DVTs on doppler. (12) DVT prophylaxis: Current visit: Yes Status: Acute Avoid chemical dvt ppx due to recent brain surgery/GBM. On SCDs (13) Discharge planning issues: Current visit: Yes Status: Acute DNR/DNI. In ICU, CVL in place - ok with current treatment. Palliative care on board Subjective Interval history since last seen: BP's and HR are stable. He is able to move his right side on command; not moving his left side. Wakes up to verbal stimuli, but then falls asleep, per nursing. I was not able to wake the patient up. Exam Narrative Exam Narrative: General: elderly male, asleep with EEG wires attached, not waking up to verbal or painful stimuli HEENT: eyes closed, MMM Heart: RRR, no m/r/g Lungs: CTAB anteriorly GI: abdomen is soft, nontender, nondistended Extremities: 1+ BLE edema, symmetric, no c/c; trace pedal pulses Objective Objective Clinical Data: Abnormal lab results 01/02/19 01/02/19 Range/Units 06:30 06:30 RBC 3.61 L (4.50-6.00) m/cumm Hgb 11.4 L (13.5-17.5) g/dL Hct 34.0 L (40.0-50.0) % RDW 15.3 H (11.8-14.1) % Plt Count 101 L (130-400) x1000/uL Absolute Lymphocytes 0.60 L (1.2-3.4) k/cumm BUN 23 H (7-18) mg/dL Creatinine 0.41 L (0.70-1.30) mg/dL Glucose 170 H (70-100) mg/dL Calcium 7.9 L (8.5-10.1) mg/dL Vital Signs Temperature 37.2 C 01/02/19 03:20 Temperature Source Temporal Artery Scan 01/02/19 03:20 Pulse 62 01/02/19 06:01 Pulse Rhythm Regular 12/31/18 08:02 Pulse 63 01/02/19 06:01 Respiratory Rate 17 01/02/19 06:01 Respiratory Effort 01/02/19 03:20 Respiratory Depth Normal 01/01/19 20:14 Respiratory Pattern Normal 01/01/19 20:14 Blood Pressure 147/68 H 01/02/19 06:01 Blood Pressure Mean 89 01/02/19 06:01 Blood Pressure Position Left Lateral 01/01/19 20:14 Pulse Oximetry 97 01/02/19 00:00 Oxygen Delivery Method Room Air 01/02/19 03:20 Oxygen Flow Rate 0 01/02/19 03:20 Pain Level 0 01/02/19 03:20 Comment 01/01/19 02:05 Intake & Output 01/01/19 01/01/19 01/02/19 11:59 23:59 11:59 Intake Total 500 / 1105.0 605.0 / 1105.0 100 / 100 Output Total 1525 / 2655 1130 / 2655 400 / 400 Balance -1025 / -1550.0 -525.0 / -1550.0 -300 / -300 Weight 84.7 kg 84.1 kg Intake: IV 500 / 1105.0 605.0 / 1105.0 100 / 100 Oral 0 / 0 Output: Urine 1525 / 2655 1130 / 2655 400 / 400 Other: Urine Color Light [place] Light Miroslava Light [place]ava Urine Appearance Clear Clear Cloudy Comment Rodriguez in place and draining Rodriguez in place. Rodriguez in place. Laboratory Results WBC 7.50 k/cumm (4.4-10.8) 01/02/19 06:30 RBC 3.61 m/cumm (4.50-6.00) L 01/02/19 06:30 Hgb 11.4 g/dL (13.5-17.5) L 01/02/19 06:30 Hct 34.0 % (40.0-50.0) L 01/02/19 06:30 MCV 94.2 fL (80-95) 01/02/19 06:30 MCH 31.6 pg (27.0-33.0) 01/02/19 06:30 MCHC 33.5 g/dL (32.0-36.0) 01/02/19 06:30 RDW 15.3 % (11.8-14.1) H 01/02/19 06:30 Plt Count 101 x1000/uL (130-400) L 01/02/19 06:30 MPV 9.5 fL (8.0-11.0) 01/02/19 06:30 Immature Gran % See Differential 01/02/19 06:30 82.0 01/02/19 06:30 2.0 % 01/02/19 06:30 8.0 01/02/19 06:30 Atypical Lymphs % 1 12/31/18 06:25 4.0 01/02/19 06:30 0.0 01/02/19 06:30 0.0 01/02/19 06:30 3.0 % 01/02/19 06:30 1.0 % 01/02/19 06:30 0 % 01/01/19 06:35 Absolute Neutrophils 6.30 k/cumm (1.2-6.7) 01/02/19 06:30 Absolute Lymphocytes 0.60 k/cumm (1.2-3.4) L 01/02/19 06:30 Absolute Monocytes 0.30 k/cumm (0.11-0.7) 01/02/19 06:30 Absolute Eosinophils 0.00 k/cumm (0.0-0.7) 01/02/19 06:30 Absolute Basophils 0.00 k/cumm (0.0-0.2) 01/02/19 06:30 Manual differential 01/02/19 06:30 RBC Morphology See below 01/02/19 06:30 Present 01/02/19 06:30 1+ 01/01/19 06:35 1+ 01/02/19 06:30 Sodium 137 mmol/L (136-145) 01/02/19 06:30 Potassium 3.7 mmol/L (3.5-5.1) 01/02/19 06:30 Chloride 103 mmol/L (98-107) 01/02/19 06:30 Carbon Dioxide 25.6 mmol/L (21.0-32.0) 01/02/19 06:30 8.4 mmol/L (3-11) 01/02/19 06:30 BUN 23 mg/dL (7-18) H 01/02/19 06:30 0.41 mg/dL (0.70-1.30) L 01/02/19 06:30 >= 60.00 (mL/min/1.73m2) 01/02/19 06:30 Glucose 170 mg/dL (70-100) H 01/02/19 06:30 1.0 mmol/l (0.6-1.4) 01/01/19 06:35 Calcium 7.9 mg/dL (8.5-10.1) L 01/02/19 06:30 Magnesium 2.1 mg/dL (1.8-2.4) 01/02/19 06:30 0.9 mg/dL (0.2-1.0) 12/30/18 06:36 AST 25 U/L (15-37) 12/30/18 06:36 ALT 41 U/L (12-78) 12/30/18 06:36 50 U/L (46-116) 12/30/18 06:36 198 U/L (39-308) 12/31/18 06:25 0.09 ng/mL (0.00-0.06) H* 12/30/18 06:36 4.8 g/dL (6.4-8.2) L 12/30/18 06:36 2.1 g/dL (3.4-5.0) L 12/30/18 06:36 125 U/L (73-393) 12/29/18 09:30 1.5 ng/mL 01/02/19 06:30 TSH 0.44 uIU/mL (0.358-3.74) 12/29/18 20:05 Yellow (Yellow) 12/30/18 22:35 Clear (Clear) 12/30/18 22:35 6.5 (5-8) 12/30/18 22:35 Ur Specific [place] 1.020 (1.005-1.025) 12/30/18 22:35 30 mg/dL (Negative) H 12/30/18 22:35 Trace mg/dL (Negative) H 12/30/18 22:35 Small (Negative) H 12/30/18 22:35 Negative (Negative) 12/30/18 22:35 Negative (Negative) 12/30/18 22:35 2.0 EU/dL (Up TO 0.2) H 12/30/18 22:35 Ur Leukocyte Esterase Negative (Negative) 12/30/18 22:35 5-10 (0-2) H 12/30/18 22:35 0-2 HPF (0-5) 12/30/18 22:35 Ur Epithelial Cells Few HPF (Negative) 12/30/18 22:35 Negative HPF (Negative) 12/30/18 22:35 Few HPF (Negative) 12/30/18 22:35 3-5 hyaline LPF (Negative) 12/30/18 22:35 Heavy (Negative) 12/30/18 22:35 Ur Culture Indicated? C&s done as ordered 12/30/18 22:35 250 mg/dL (Negative) H 12/30/18 22:35 Vancomycin Trough 14.9 ug/mL (10.0-20.0) 01/01/19 06:35 Phenytoin 10.4 ug/mL (10.0-20.0) 01/02/19 06:30
--- NOTE | 2019-01-02 08:32 | PDOC.EEG ---
EEG: [facility] Department of Neurology INPATIENT EEG REPORT - OVERNIGHT RECORDING Date of Recordin01/01/19 at 14:42:32 to 01/02/19 at 08:30:45 Interpreting Physician: Dr. Jodie May Reason for study: Mr. 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 Current Medications: Current Medications Acetaminophen (Tylenol) 1,000 mg PO Q4H PRN PRN Acetaminophen (Tylenol) 650 mg ID Q6H PRN PRN Last Admin: 12/30/18 14:35 Dose: 650 mg Documented by: Al Hydrox/Mg Hydrox/Simethicone (Mylanta Liquid) 30 ml PO Q2H PRN PRN Albuterol Sulfate (Proventil Updraft) 2.5 mg UPD Q2H PRN PRN Aspirin () 81 mg PO DAILY [facility] Last Admin: 12/30/18 08:43 Dose: 81 mg Documented by: Cilostazol (Pletal) 100 mg PO BID [facility] Last Admin: 12/30/18 20:04 Dose: 100 mg Documented by: Dexamethasone (Decadron Phosphate) 8 mg IVP BID [facility] Last Admin: 01/01/19 19:31 Dose: 8 mg Documented by: Dextrose (Insta-Glucose) 0 gm PO DIRECTED PRN Dextrose/Water () 0 gm IVP DIRECTED PRN Dimethicone/Zinc Oxide (Dahlia Protect Cream) 0 gm TP PRN PRN Last Admin: 12/30/18 14:40 Dose: 1 applic Documented by: Docusate Sodium (Colace) 100 mg PO TID PRN PRN Escitalopram Oxalate (Lexapro) 10 mg PO DAILY [facility] Last Admin: 12/30/18 08:44 Dose: 10 mg Documented by: Fosphenytoin Sodium (Cerebyx) 200 mg IV DAILY [facility] Levofloxacin (Levaquin Premixed Bag) 500 mg in 100 mls @ 100 mls/hr IVPB Q24H [facility]; Protocol Last Infusion: 01/01/19 16:45 Dose: Infused Documented by: Levetiracetam 1,750 mg/ Sodium (Chloride) 117.5 mls @ 400 mls/hr IVPB BID [facility] Last Infusion: 01/01/19 20:50 Dose: Infused Documented by: Acetaminophen (Ofirmev) 1,000 mg in 100 mls @ 400 mls/hr IVPB Q6H PRN PRN Last Infusion: 01/01/19 03:19 Dose: Infused Documented by: Sodium Chloride (Saline 500ml Bag) 500 mls @ 0 mls/hr IV PRN PRN Last Infusion: 12/31/18 12:16 Dose: Infused Documented by: Ceftazidime 2,000 mg/ Sodium (Chloride) 100 mls @ 200 mls/hr IVPB Q8H [facility] Last Admin: 01/02/19 06:24 Dose: 200 mls/hr Documented by: IV Miscellaneous Supplies () 1 each IV DIRECTED [facility] Insulin Aspart (Novolog Flexpen) 0 units SC Q6H [facility]ILLIE; Protocol Last Admin: 01/02/19 06:56 Dose: 1 units Documented by: Lorazepam (Ativan Injection) 1 mg IVP Q2H PRN PRN Magnesium Hydroxide (Milk Of Magnesia) 30 ml PO DAILY PRN PRN Pantoprazole Sodium (Protonix Injection) 40 mg IVP Q24H [facility] Last Admin: 01/01/19 18:14 Dose: 40 mg Documented by: Polyethylene Glycol (Miralax) 17 gm PO DAILY PRN PRN PRN Reason: Constipation Potassium Chloride (K-Dur) 10 meq PO DAILY [facility] Last Admin: 12/30/18 08:44 Dose: 10 meq Documented by: Sodium Chloride (Saline Flush 10 Ml Syringe) 0 ml IVP PRN PRN Last Admin: 01/02/19 06:24 Dose: 30 ml Documented by: METHODS: A 21 channel digitized electroencephalogram was performed in the [facility] Med/Surg Floor or ICU. The 10/20 international system of electrode placement was used and bipolar and referential electrode montages were recorded. In addition to EEG the patient was monitored for EKG and lateral/vertical eye movements. Activation procedures of photic stimulation and hyperventilation were performed if applicable. Video was used during activation procedures and during events where applicable. The duration of the recording was ~18 hours. DESCRIPTION OF EEG: The patient was noted to be mainly alseep during the recording. No sustained wakefulness was seen.. Sleep is manifested by spindles at the vertex. Left Hemisphere: a mix of moderate-amplitude, polymorphic, delta and theta activity. Right Hemisphere: There was continuous, high-amplitude, sharply-contoured activity intermixed with beta frequency activity over the right hemisphere, consistent with a breach rhythm. There were frequent, high-amplitude, right centro-temporal spike waves at C4/T4 that at times become periodic consistent with PLEDs (Periodic Lateralized Epileptiform Discharges). Ictal Events: There were frequent bursts of apparent right centro-temporal electrographic seizure (too numerous to count and describe individually) manifested by an evolution in spike/polyspike activity and then subsequent decrease (lasting ~1min), followed by brief burst suppression-type pattern in the right hemisphere. There were no apparent clinical correlations. At the beginning of the recording, these were occurring at a rate of 15+ per hour. At approximately 1753, he was bolused with 300mg of IV phenobarbital. This resulted in a decreased of events to 7-8/hour throughout the night and into the am. The left hemisphere electrodes fell off early in the night. By the end of the recording, most of the electrodes were displaced and not readable. Activating Procedures: Photic stimulation and hyperventilation were not performed. EKG: EKG revealed a normal sinus rhythm. INTERPRETATION: This EEG is abnormal due to: #1. Frequent, right centro-temporal electrographic seizures without clinical correlate, consistent with focal non-motor partial status epilepticus. Slightly improved overnight. #2. Frequent right centro-temporal PLEDs. #3. Moderate generalized slowing and loss of PDR. #4. Higher amplitude activity in the right hemisphere consistent with breach rhythm (previous craniotomy).. PRIOR EEG: -vEEG ([facility] [place] 2018): right central spike-waves that correlated with left foot myoclonus and c/w with cortial myoclonus -EEG ([facility] 01/01/19): Frequent, right central temporal electrographic seizures without clinical correlate; PLEDs; moderate generalized slowing, right hemisphere breach rhythm CLINICAL CORRELATION: The patient continues to be in right partial status epilepticus. . There was mild improvement s/p addition of Ativan and fosphenytoin on 01/01/19, but this was not sustained. There has been further slight improvement s/p IV phenobarbital load. In addition, there are frequent PLEDs, which fall on the ictal/interical spectrum, and are likely secondary to his underling mass/GBM. The background slowing is suggestive of a moderate diffuse cerebral encephalopathy. Jodie May MD
[2019-01-02] MEDS: Dexamethasone 4 MG/ML VIAL 8 MG IVP ×2 (08:45→20:40)
--- NOTE | 2019-01-02 10:31 | PDOC.CMPRO ---
- If Service Date Differs Date of service: 01/02/19 Time of Service: 10:31 Care Management Progress Note S/O: CM came to visit several times during the nanette but Nico was asleep each time. Per nursing, he has had periods of lucidity and spoke briefly to nurse and to his . Per Dr. Jessica, there is less active seizure activity on EEG. Elsy has been out of the room each time CM came to visit. CM will continue to provide support to patient and family. A: 78 year old male admitted to [facility] 12/29/18 for ACG, Glioblastoma with AMS, Seizure, Left Hemiparesis P: Nico will continue to be closely monitored and his seizures will be treated. Anticipate Nico will return to [facility] once he stabilizes. CM will continue to support patient and family and coordinate identified service supports.
--- NOTE | 2019-01-02 12:16 | PDOC.EEG ---
EEG: [facility] Department of Neurology INPATIENT EEG REPORT - OVERNIGHT RECORDING Date of Recordin01/02/19 at 08:31:00 to 01/02/19 at 16:27:23 Interpreting Physician: Dr. Jodie May Reason for study: Mr. 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 Current Medications: Current Medications Acetaminophen (Tylenol) 1,000 mg PO Q4H PRN PRN Acetaminophen (Tylenol) 650 mg CO Q6H PRN PRN Last Admin: 12/30/18 14:35 Dose: 650 mg Documented by: Al Hydrox/Mg Hydrox/Simethicone (Mylanta Liquid) 30 ml PO Q2H PRN PRN Albuterol Sulfate (Proventil Updraft) 2.5 mg UPD Q2H PRN PRN Aspirin () 81 mg PO DAILY [facility] Last Admin: 12/30/18 08:43 Dose: 81 mg Documented by: Cilostazol (Pletal) 100 mg PO BID [facility] Last Admin: 12/30/18 20:04 Dose: 100 mg Documented by: Dexamethasone (Decadron Phosphate) 8 mg IVP BID [facility] Last Admin: 01/02/19 08:45 Dose: 8 mg Documented by: Dextrose (Insta-Glucose) 0 gm PO DIRECTED PRN Dextrose/Water () 0 gm IVP DIRECTED PRN Dimethicone/Zinc Oxide (Dahlia Protect Cream) 0 gm TP PRN PRN Last Admin: 12/30/18 14:40 Dose: 1 applic Documented by: Docusate Sodium (Colace) 100 mg PO TID PRN PRN Escitalopram Oxalate (Lexapro) 10 mg PO DAILY [facility] Last Admin: 12/30/18 08:44 Dose: 10 mg Documented by: Levofloxacin (Levaquin Premixed Bag) 500 mg in 100 mls @ 100 mls/hr IVPB Q24H [facility]; Protocol Last Infusion: 01/01/19 16:45 Dose: Infused Documented by: Levetiracetam 1,750 mg/ Sodium (Chloride) 117.5 mls @ 400 mls/hr IVPB BID [facility] Last Infusion: 01/02/19 09:54 Dose: Infused Documented by: Acetaminophen (Ofirmev) 1,000 mg in 100 mls @ 400 mls/hr IVPB Q6H PRN PRN Last Infusion: 01/01/19 03:19 Dose: Infused Documented by: Sodium Chloride (Saline 500ml Bag) 500 mls @ 0 mls/hr IV PRN PRN Last Infusion: 12/31/18 12:16 Dose: Infused Documented by: Ceftazidime 2,000 mg/ Sodium (Chloride) 100 mls @ 200 mls/hr IVPB Q8H [facility] Last Infusion: 01/02/19 08:45 Dose: Infused Documented by: Fosphenytoin Sodium 200 mg/ (Sodium Chloride) 54 mls @ 216 mls/hr IVPB Q24H [facility] Last Infusion: 01/02/19 10:55 Dose: Infused Documented by: IV Miscellaneous Supplies () 1 each IV DIRECTED [facility] Insulin Aspart (Novolog Flexpen) 0 units SC Q6H [facility]; Protocol Last Admin: 01/02/19 06:56 Dose: 1 units Documented by: Lorazepam (Ativan Injection) 1 mg IVP Q2H PRN PRN Magnesium Hydroxide (Milk Of Magnesia) 30 ml PO DAILY PRN PRN Pantoprazole Sodium (Protonix Injection) 40 mg IVP Q24H [facility] Last Admin: 01/01/19 18:14 Dose: 40 mg Documented by: Polyethylene Glycol (Miralax) 17 gm PO DAILY PRN PRN PRN Reason: Constipation Potassium Chloride (K-Dur) 10 meq PO DAILY [facility] Last Admin: 12/30/18 08:44 Dose: 10 meq Documented by: Sodium Chloride (Saline Flush 10 Ml Syringe) 0 ml IVP PRN PRN Last Admin: 01/02/19 06:24 Dose: 30 ml Documented by: METHODS: A 21 channel digitized electroencephalogram was performed in the [facility] Med/Surg Floor or ICU. The 10/20 international system of electrode placement was used and bipolar and referential electrode montages were recorded. In addition to EEG the patient was monitored for EKG and lateral/vertical eye movements. Activation procedures of photic stimulation and hyperventilation were performed if applicable. Video was used during activation procedures and during events where applicable. The duration of the recording was ~8 hours. DESCRIPTION OF EEG: The patient was noted to be mainly alseep during the recording. No sustained wakefulness was seen. Sleep is manifested by spindles at the vertex. Left Hemisphere: a mix of moderate-amplitude, polymorphic, delta and theta activity. Right Hemisphere: There was continuous, high-amplitude, sharply-contoured activity intermixed with beta frequency activity over the right hemisphere, consistent with a breach rhythm. There were frequent, high-amplitude, right centro-temporal spike waves at C4/T4 that at times become periodic consistent with PLEDs (Periodic Lateralized Epileptiform Discharges). Ictal Events: There were frequent bursts of apparent right centro-temporal electrographic seizure (too numerous to count and describe individually) manifested by an evolution in spike/polyspike activity and then subsequent decrease (lasting ~1min), followed by brief burst suppression-type pattern in the right hemisphere. There were no apparent clinical correlations. As of 1220: The beginning of the recording was limited by artifact and disconnection of the wires. At approximately 1055, he was bolused with 1000mg of IV valproic acid. This resulted in a decreased of events to 4-5/hour. Update at 1501: 400mg IV lacosamide was given around 1348. There does not appear to be any improvement following this. Update at 1600: Mr. Arreola will be placed on comfort measures. While in his room, I witnessed subtle left shoulder twitching that correlated with right hemisphere seizure activity. Activating Procedures: Photic stimulation and hyperventilation were not performed. EKG: EKG revealed a normal sinus rhythm. INTERPRETATION: This EEG is abnormal due to: #1. Frequent, right centro-temporal electrographic seizures without clinical correlate, consistent with focal non-motor partial status epilepticus. Slightly improved overnight. #2. Frequent right centro-temporal PLEDs. #3. Moderate generalized slowing and loss of PDR. #4. Higher amplitude activity in the right hemisphere consistent with breach rhythm (previous craniotomy).. PRIOR EEG: -vEEG ([facility] [place] November 2018): right central spike-waves that correlated with left foot myoclonus and c/w with cortial myoclonus -EEG ([facility] 01/01/19): Frequent, right central temporal electrographic seizures without clinical correlate; PLEDs; moderate generalized slowing, right hemisphere breach rhythm -EEG ([facility] 01/01/19-01/02/19): Frequent, right central temporal electrographic seizures without clinical correlate; PLEDs; moderate generalized slowing, right hemisphere breach rhythm CLINICAL CORRELATION: The patient continues to be in right partial status epilepticus. There was mild improvement s/p addition of Ativan and fosphenytoin on 01/01/19, but this was not sustained. There has been further slight improvement s/p IV phenobarbital load and with IV VPA on 01/02/19. There was no further improvement after the addition of IV lacosamide. In addition, there are frequent PLEDs, which fall on the ictal/interical spectrum, and are likely secondary to his underling mass/GBM. The background slowing is suggestive of a moderate diffuse cerebral encephalopathy. Jodie May MD
--- NOTE | 2019-01-02 15:14 | W.PM.PROGNOT ---
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 Arreola is a 78-year-old, right-handed man with a right GBM s/p craniotomy in October 2018 who was admitted with increased myoclonic activity, headaches, left hemiparesis, dysphagia, and confusion who subsequently went into shock secondary to aspiration pneumonia, now found to be in right hemisphere subclinical status epilepticus. He remains somnolent with severe dysphagia, dysarthria, and hypophonia along with generalized weakness and apparent left hemineglect. Yesterday, Ms. Arreola wanted to pursue further treatment of seizures without intubation/sedation. We have since utilized all IV AEDs available that don't inhibit respiratory drive with a modest decrease in seizure activity, but however, without any meaningful clinical improvement. After extensive discussion with Ms. Arreola on prognosis, goals of care, and Mr. Arreola's previous expressed wishes, she has opted to pursue comfort care measures. She has a real fear of seeing him seize or experience his previous myoclonus. Given potential clinical manifestation of seizure activity, after discussion with Dr. Tracey he will be started on an Ativan drip. Maintenance medications include Keppra 1750mg BID, Depakote 1000mg BID, Dilantin 200mg daily, and Dexamethasone 8mg BID. If Depakote and Dilantin are continued, I would consider checking a level in the am as today's addition of Depakote can increase Dilantin levels. Please call with any questions or concerns. DISCLAIMER: This note was created using [employer] voice recognition software. Subjective Interval history since last seen: Mr. Arreola remained on EEG overnight after PHB load in addition to LEV, PHE, and increase in dexamethasone. He remains quite somnolent with no meaningful interactions overnight and throughout the day. Seizure frequency decreased slightly. He was given a load of IV Depakote this am, with a further decrease. He was given a load of IV lacosamide this afternoon with no apparent change. No reported seizure activity occurred overnight, however, when I was in the room, I witnessed subtle left shoulder twitching. This occurred and correlated with right hemisphere seizure activity on the EEG. Exam Narrative Exam Narrative: Physical Exam: Constitutional: no acute distress, somnolent - not rousable today Neck: Supple, no meningismus CV: RRR Resp: rhonchi bilaterally Abd: Soft, nontender, nondistended, +BS Extem: Mild bilateral LE edema Neuro: MS/Language/Speech: somnolent Sensory/Motor: flaccid generalized weakness. +Grasp reflex on right. No movements or reactivity on the left. Objective Objective Clinical Data: Abnormal lab results 01/02/19 01/02/19 Range/Units 06:30 06:30 RBC 3.61 L (4.50-6.00) m/cumm Hgb 11.4 L (13.5-17.5) g/dL Hct 34.0 L (40.0-50.0) % RDW 15.3 H (11.8-14.1) % Plt Count 101 L (130-400) x1000/uL Absolute Lymphocytes 0.60 L (1.2-3.4) k/cumm BUN 23 H (7-18) mg/dL Creatinine 0.41 L (0.70-1.30) mg/dL Glucose 170 H (70-100) mg/dL Calcium 7.9 L (8.5-10.1) mg/dL Vital Signs Temperature 36.4 C L 01/02/19 12:21 Temperature Source Temporal Artery Scan 01/02/19 12:21 Pulse 63 01/02/19 12:01 Pulse Rhythm Regular 12/31/18 08:02 Pulse 67 01/02/19 12:01 Respiratory Rate 13 01/02/19 12:01 Respiratory Effort 01/02/19 12:21 Respiratory Depth Normal 01/02/19 12:21 Respiratory Pattern Normal 01/02/19 12:21 Blood Pressure 135/68 01/02/19 12:01 Blood Pressure Mean 86 01/02/19 12:01 Blood Pressure Position Right Lateral 01/02/19 12:21 Pulse Oximetry 98 01/02/19 12:21 Oxygen Delivery Method Room Air 01/02/19 12:21 Oxygen Flow Rate 0 01/02/19 12:21 Pain Level 0 01/02/19 08:10 Comment 01/01/19 02:05 Intake & Output 01/01/19 01/02/19 01/02/19 23:59 11:59 23:59 Intake Total 605.0 / 1105.0 461.5 / 551.5 90 / 551.5 Output Total 1130 / 2655 400 / 1400 1000 / 1400 Balance -525.0 / -1550.0 61.5 / -848.5 -910 / -848.5 Weight 84.1 kg Intake: IV 605.0 / 1105.0 461.5 / 551.5 90 / 551.5 Output: Urine 1130 / 2655 400 / 1400 1000 / 1400 Other: Urine Color Light Miroslava Light Miroslava Yellow Urine Appearance Clear Cloudy Clear Comment Rodriguez in place. Rodriguez in place. Rodriguez in place patent/draining straw colored urine. Laboratory Results WBC 7.50 k/cumm (4.4-10.8) 01/02/19 06:30 RBC 3.61 m/cumm (4.50-6.00) L 01/02/19 06:30 Hgb 11.4 g/dL (13.5-17.5) L 01/02/19 06:30 Hct 34.0 % (40.0-50.0) L 01/02/19 06:30 MCV 94.2 fL (80-95) 01/02/19 06:30 MCH 31.6 pg (27.0-33.0) 01/02/19 06:30 MCHC 33.5 g/dL (32.0-36.0) 01/02/19 06:30 RDW 15.3 % (11.8-14.1) H 01/02/19 06:30 Plt Count 101 x1000/uL (130-400) L 01/02/19 06:30 MPV 9.5 fL (8.0-11.0) 01/02/19 06:30 Immature Gran % See Differential 01/02/19 06:30 82.0 01/02/19 06:30 2.0 % 01/02/19 06:30 8.0 01/02/19 06:30 Atypical Lymphs % 1 07/15/19 06:25 4.0 01/02/19 06:30 0.0 01/02/19 06:30 0.0 01/02/19 06:30 3.0 % 01/02/19 06:30 1.0 % 01/02/19 06:30 0 % 01/01/19 06:35 Absolute Neutrophils 6.30 k/cumm (1.2-6.7) 01/02/19 06:30 Absolute Lymphocytes 0.60 k/cumm (1.2-3.4) L 01/02/19 06:30 Absolute Monocytes 0.30 k/cumm (0.11-0.7) 01/02/19 06:30 Absolute Eosinophils 0.00 k/cumm (0.0-0.7) 01/02/19 06:30 Absolute Basophils 0.00 k/cumm (0.0-0.2) 01/02/19 06:30 Manual differential 01/02/19 06:30 RBC Morphology See below 01/02/19 06:30 Present 01/02/19 06:30 1+ 01/01/19 06:35 1+ 01/02/19 06:30 Sodium 137 mmol/L (136-145) 01/02/19 06:30 Potassium 3.7 mmol/L (3.5-5.1) 01/02/19 06:30 Chloride 103 mmol/L (98-107) 01/02/19 06:30 Carbon Dioxide 25.6 mmol/L (21.0-32.0) 01/02/19 06:30 8.4 mmol/L (3-11) 01/02/19 06:30 BUN 23 mg/dL (7-18) H 01/02/19 06:30 0.41 mg/dL (0.70-1.30) L 01/02/19 06:30 >= 60.00 (mL/min/1.73m2) 01/02/19 06:30 Glucose 170 mg/dL (70-100) H 01/02/19 06:30 1.0 mmol/l (0.6-1.4) 01/01/19 06:35 Calcium 7.9 mg/dL (8.5-10.1) L 01/02/19 06:30 Magnesium 2.1 mg/dL (1.8-2.4) 01/02/19 06:30 0.9 mg/dL (0.2-1.0) 12/30/18 06:36 AST 25 U/L (15-37) 12/30/18 06:36 ALT 41 U/L (12-78) 12/30/18 06:36 50 U/L (46-116) 12/30/18 06:36 198 U/L (39-308) 12/31/18 06:25 0.09 ng/mL (0.00-0.06) H* 12/30/18 06:36 4.8 g/dL (6.4-8.2) L 12/30/18 06:36 2.1 g/dL (3.4-5.0) L 12/30/18 06:36 125 U/L (73-393) 12/29/18 09:30 1.5 ng/mL 01/02/19 06:30 TSH 0.44 uIU/mL (0.358-3.74) 12/29/18 20:05 Yellow (Yellow) 12/30/18 22:35 Clear (Clear) 12/30/18 22:35 6.5 (5-8) 12/30/18 22:35 Ur Specific [place] 1.020 (1.005-1.025) 12/30/18 22:35 30 mg/dL (Negative) H 12/30/18 22:35 Trace mg/dL (Negative) H 12/30/18 22:35 Small (Negative) H 12/30/18 22:35 Negative (Negative) 12/30/18 22:35 Negative (Negative) 12/30/18 22:35 2.0 EU/dL (Up TO 0.2) H 12/30/18 22:35 Ur Leukocyte Esterase Negative (Negative) 12/30/18 22:35 5-10 (0-2) H 12/30/18 22:35 0-2 HPF (0-5) 12/30/18 22:35 Ur Epithelial Cells Few HPF (Negative) 12/30/18 22:35 Negative HPF (Negative) 12/30/18 22:35 Few HPF (Negative) 12/30/18 22:35 3-5 hyaline LPF (Negative) 12/30/18 22:35 Heavy (Negative) 12/30/18 22:35 Ur Culture Indicated? C&s done as ordered 12/30/18 22:35 250 mg/dL (Negative) H 12/30/18 22:35 Vancomycin Trough 14.9 ug/mL (10.0-20.0) 01/01/19 06:35 Phenytoin 10.4 ug/mL (10.0-20.0) 01/02/19 06:30
[2019-01-02] MEDS: levoFLOXacin 500 MG/100 ML BAG 100 MG IVPB (15:41)
--- NOTE | 2019-01-02 16:00 | W.DIABETESNO ---
Date of service: 01/02/19 Time of Service: 16:00 Diabetes Note NOTE: Appreciate diabetes consult. Mr. Arreola has been hospitalized with seizures and has had some hyperglycemia during his inpatient stay treated with sensitive insulin correction. BLood sugars 135-214 eating minimally or refusing the meal altogether. He was not treated with diabetes medications and no A1c available for this 78 year old who may be going on comfort care. No intervention warranted at this time. Time Spent in Nutritional Counseling and Treatment: 0 minutes face to face
[2019-01-02] MEDS: ACETAMINOPHEN 1,000 MG/100 ML BTL 400 MG IVPB (16:24)
[2019-01-02] MEDS: Scopolamine 1 MG/3 DAYS PATCH TD (16:58)
--- NOTE | 2019-01-03 07:30 | PDOC.CMPRO ---
- If Service Date Differs Date of service: 01/03/19 Time of Service: 07:30 Care Management Progress Note S/O: Nico remains on comfort care and is receiving IV Ativan via continuous drip. He is unresponsive to voice or touch. Nico's Elsy is with him in the room as well as their oldest son. Elsy states that she is doing ok and that she has received support and hugs from many people, including the staff at [facility] when she went to pickling grader Nico's belongings. CM will continue to follow. A: 78 year old male admitted to [facility] 12/29/18 for ACG, Glioblastoma with AMS, Seizure, Left Hemiparesis P: Nico was transitioned to comfort care last evening. He will continue to receive anticonvulsant medications as well as an IV Ativan drip. CM will continue to support patient and family and coordinate identified service supports.
[2019-01-03] MEDS: Dexamethasone 4 MG/ML VIAL 8 MG IVP ×2 (07:59→19:49)
[2019-01-03] MEDS: Normal Saline Flush 10 ML SYR IVP ×5 (08:00→19:50)
[2019-01-03] MEDS: Glycopyrrolate 0.2 MG/1 ML VIAL IVP ×2 (14:30→16:39)
--- NOTE | 2019-01-03 15:42 | CHAPLAIN ---
I had two visits with Elsy today. Nico remains unresponsive today, but Elsy believes he is comfortable and she said she is at peace with this. She is grateful that Nico can stay here, and she acknowledges that she has followed his wishes. Their eldest son was in this afternoon to visit. Other sons have visited as well. Elsy told me that yesterday while she was sitting with Nico, and her son was with, Nico clearly stated Eric is going to meet me half way. He had not spoken before that for quite a while. Eric was Elsy's brother who lived with them. He was diagnosed with cancer in his pelvis and 61 days later. Elsy said that Rocky made a few comments and seemed to be ordering breakfast at the diner. Elsy was able to speak with their friend, the retired [employer] [place], on Monday, and Elsy took great comfort in his reassurances that she was following Nico's wishes.
--- NOTE | 2019-01-03 16:53 | W.PM.PROGNOT ---
Date of Service Date of service: 01/03/19 Time of Service: 11:30 Assessment and Plan (1) Comfort measures only status: Current visit: Yes Status: Acute Mr. Arreola transitioned to comfort measures only yesterday. He remains on an Ativan drip. He appears to be comfortable. Nursing will administer morphine for increased work of breathing. He does not appear to have seizure activity on exam. Continue antiepileptic medications as his has a fear of seeing him have seizures. Continue comfort measures. Subjective Interval history since last seen: Mr. Arreola transitioned to comfort measures yesterday. He remains on ativan drip. He is not responsive. He appears calm and comfortable. His left the room prior to the visit. There is music playing. He continues on antiepileptic medication as his did not want to see him have seizures. Exam Narrative Exam Narrative: General: elderly male, not responsive. Appears calm and comfortable, no visible seizure activity. HEENT: eyes closed, no furrowed brows or grimacing. Heart: regular rate and rhythm Lungs: Respirations appear mildly labored, lung sounds clear on anterior and lateral exam. GI: abdomen is soft, does not appear tender on palpation, nondistended Extremities: 1+ BLE edema, faint pedal pulses Objective Objective Clinical Data: Vital Signs Temperature 36.5 C 01/02/19 15:42 Temperature Source Temporal Artery Scan 01/02/19 15:42 Pulse 71 01/02/19 16:00 Pulse Rhythm Regular 12/31/18 08:02 Pulse 66 01/02/19 16:00 Respiratory Rate 20 01/02/19 16:00 Respiratory Effort 01/02/19 23:20 Respiratory Depth Shallow 01/02/19 23:20 Respiratory Pattern Normal 01/02/19 23:20 Blood Pressure 140/68 01/02/19 16:00 Blood Pressure Mean 87 01/02/19 16:00 Blood Pressure Position Left Lateral 01/02/19 15:42 Pulse Oximetry 99 01/02/19 16:00 Oxygen Delivery Method Room Air 01/02/19 15:42 Oxygen Flow Rate 0 01/02/19 15:42 Pain Level 0 01/02/19 20:40 Comment 01/01/19 02:05 Intake & Output 01/02/19 01/03/19 01/03/19 23:59 11:59 23:59 Intake Total 307.5 / 769.0 171.5 / 171.5 Output Total 1800 / 2200 1800 / 1800 Balance -1492.5 / -1431.0 -1628.5 / -1628.5 Intake: IV 307.5 / 769.0 171.5 / 171.5 Output: Urine 1800 / 2200 1800 / 1800 Other: Urine Color Yellow Yellow Straw Urine Appearance Clear Clear Comment Rodriguez in place patent/draining yellow colored urine. Laboratory Results WBC 7.50 k/cumm (4.4-10.8) 01/02/19 06:30 RBC 3.61 m/cumm (4.50-6.00) L 01/02/19 06:30 Hgb 11.4 g/dL (13.5-17.5) L 01/02/19 06:30 Hct 34.0 % (40.0-50.0) L 01/02/19 06:30 MCV 94.2 fL (80-95) 01/02/19 06:30 MCH 31.6 pg (27.0-33.0) 01/02/19 06:30 MCHC 33.5 g/dL (32.0-36.0) 01/02/19 06:30 RDW 15.3 % (11.8-14.1) H 01/02/19 06:30 Plt Count 101 x1000/uL (130-400) L 01/02/19 06:30 MPV 9.5 fL (8.0-11.0) 01/02/19 06:30 Immature Gran % See Differential 01/02/19 06:30 82.0 01/02/19 06:30 2.0 % 01/02/19 06:30 8.0 01/02/19 06:30 Atypical Lymphs % 1 12/31/18 06:25 4.0 01/02/19 06:30 0.0 01/02/19 06:30 0.0 01/02/19 06:30 3.0 % 01/02/19 06:30 1.0 % 01/02/19 06:30 0 % 01/01/19 06:35 Absolute Neutrophils 6.30 k/cumm (1.2-6.7) 01/02/19 06:30 Absolute Lymphocytes 0.60 k/cumm (1.2-3.4) L 01/02/19 06:30 Absolute Monocytes 0.30 k/cumm (0.11-0.7) 01/02/19 06:30 Absolute Eosinophils 0.00 k/cumm (0.0-0.7) 01/02/19 06:30 Absolute Basophils 0.00 k/cumm (0.0-0.2) 01/02/19 06:30 Manual differential 01/02/19 06:30 RBC Morphology See below 01/02/19 06:30 Present 01/02/19 06:30 1+ 01/01/19 06:35 1+ 01/02/19 06:30 Sodium 137 mmol/L (136-145) 01/02/19 06:30 Potassium 3.7 mmol/L (3.5-5.1) 01/02/19 06:30 Chloride 103 mmol/L (98-107) 01/02/19 06:30 Carbon Dioxide 25.6 mmol/L (21.0-32.0) 01/02/19 06:30 8.4 mmol/L (3-11) 01/02/19 06:30 BUN 23 mg/dL (7-18) H 01/02/19 06:30 0.41 mg/dL (0.70-1.30) L 01/02/19 06:30 >= 60.00 (mL/min/1.73m2) 01/02/19 06:30 Glucose 170 mg/dL (70-100) H 01/02/19 06:30 1.0 mmol/l (0.6-1.4) 01/01/19 06:35 Calcium 7.9 mg/dL (8.5-10.1) L 01/02/19 06:30 Magnesium 2.1 mg/dL (1.8-2.4) 01/02/19 06:30 0.9 mg/dL (0.2-1.0) 12/30/18 06:36 AST 25 U/L (15-37) 12/30/18 06:36 ALT 41 U/L (12-78) 12/30/18 06:36 50 U/L (46-116) 12/30/18 06:36 198 U/L (39-308) 12/31/18 06:25 0.09 ng/mL (0.00-0.06) H* 12/30/18 06:36 4.8 g/dL (6.4-8.2) L 12/30/18 06:36 2.1 g/dL (3.4-5.0) L 12/30/18 06:36 125 U/L (73-393) 12/29/18 09:30 1.5 ng/mL 01/02/19 06:30 TSH 0.44 uIU/mL (0.358-3.74) 12/29/18 20:05 Yellow (Yellow) 12/30/18 22:35 Clear (Clear) 12/30/18 22:35 6.5 (5-8) 12/30/18 22:35 Ur Specific [place] 1.020 (1.005-1.025) 12/30/18 22:35 30 mg/dL (Negative) H 12/30/18 22:35 Trace mg/dL (Negative) H 12/30/18 22:35 Small (Negative) H 12/30/18 22:35 Negative (Negative) 12/30/18 22:35 Negative (Negative) 12/30/18 22:35 2.0 EU/dL (Up TO 0.2) H 12/30/18 22:35 Ur Leukocyte Esterase Negative (Negative) 12/30/18 22:35 5-10 (0-2) H 12/30/18 22:35 0-2 HPF (0-5) 12/30/18 22:35 Ur Epithelial Cells Few HPF (Negative) 12/30/18 22:35 Negative HPF (Negative) 12/30/18 22:35 Few HPF (Negative) 12/30/18 22:35 3-5 hyaline LPF (Negative) 12/30/18 22:35 Heavy (Negative) 12/30/18 22:35 Ur Culture Indicated? C&s done as ordered 12/30/18 22:35 250 mg/dL (Negative) H 12/30/18 22:35 Vancomycin Trough 14.9 ug/mL (10.0-20.0) 01/01/19 06:35 Phenytoin 10.4 ug/mL (10.0-20.0) 01/02/19 06:30
[2019-01-03] MEDS: Normal Saline 500 ML 15 ML IV (18:04)
[2019-01-04] MEDS: Normal Saline Flush 10 ML SYR IVP ×4 (03:33→20:09)
[2019-01-04] MEDS: Dexamethasone 4 MG/ML VIAL 8 MG IVP ×2 (07:57→20:09)
--- NOTE | 2019-01-04 09:38 | PDOC.CMPRO ---
- If Service Date Differs Date of service: 01/04/19 Time of Service: 09:38 Care Management Progress Note S/O: Nico remains on comfort care and is receiving IV Ativan and anticonvulsants. His Elsy has remained by his side and visitors have been coming in all day. Nico's older brother and niece have visited as well as children and grandchildren. Elsy maintains that she is doing OK. A: 78 year old male admitted to [facility] 12/29/18 for ACG, Glioblastoma with AMS, Seizure, Left Hemiparesis P: Nico remains on comfort care. He will continue to receive anticonvulsant medications as well as an IV Ativan drip. CM will continue to support patient and family and coordinate identified service supports.
--- NOTE | 2019-01-04 12:59 | W.PALPGNOTE ---
Date of service: 01/04/19 Assessment and Plan (1) Comfort measures only status: Current visit: Yes Status: Acute Nico looks comfortable. Hospitalist team and med-surg nurses doing a good job keeping him comfortable, and supporting his . No medication suggestions. (2) Subclinical status epilepticus: Current visit: Yes Status: Acute looks comfortable on current anti-seizure meds and lorazepam drip (3) GBM (glioblastoma multiforme): Current visit: No Status: Chronic never able to be well enough to receive radiation or chemotherapy will be the cause of his family aware Subjective Interval history since last seen: Nico is on comfort measures. He is resting quietly, eyes closed, non-verbal, occasional brief episodes of apnea. Elsy is in the room. He has a rosary threaded through his hands. He has had no visible seizures for more than 48 hrs. He is on a low dose ativan drip to help prevent their recurrence, in addition to his seizure medications. He has seen the credit collections clerk. Sons are aware of his impending and per their mother, Nico's , they are as prepared as they can be. She has had lots of love and support from her friends/neighbors/community/family. She's doing the best she can. Exam Const General: comfortable, no acute distress and ill appearing Nutritional Appearance: average body habitus Orientation: obtunded [facility] Head: not normocephalic (scarring from craniotomy visible, healed well; indentation over right templ) General nose exam: external nose normal Face and sinus: face asymmetric (facial droop right side) and scar Neck Neck: no lymphadenopathy and no JVD Resp Effort & Inspection: other (brief episodes apnea) Auscultation: crackles bilaterally Cardio Jugular venous pressure: no JVD Rate: regular rate Rhythm: regular rhythm Heart Sounds: S1 normal and S2 normal GI Inspection: normal to inspection Palpation: soft Auscultation: normal bowel sounds Skin General skin exam: erythema (of face and neck; looks flushed; skin warm) Hair: male pattern alopecia Neuro General: obtunded Cognition: abnormal cognition Extrem General: normal to inspection and muscle atrophy Psych Appearance: grossly normal Speech and Movement: other (unresponsive) Insight: poor Judgment: poor Other: making decisions for [place] unable to speak or respond Objective Objective Clinical Data: Vital Signs Temperature 97.7 F 01/02/19 15:42 Temperature Source Temporal Artery Scan 01/02/19 15:42 Pulse 71 01/02/19 16:00 Pulse Rhythm Regular 12/31/18 08:02 Pulse 66 01/02/19 16:00 Respiratory Rate 20 01/02/19 16:00 Respiratory Effort 01/04/19 08:15 Respiratory Depth Shallow 01/04/19 08:15 Respiratory Pattern Normal 01/04/19 08:15 Blood Pressure 140/68 01/02/19 16:00 Blood Pressure Mean 87 01/02/19 16:00 Blood Pressure Position Left Lateral 01/02/19 15:42 Pulse Oximetry 99 01/02/19 16:00 Oxygen Delivery Method Room Air 01/02/19 15:42 Oxygen Flow Rate 0 01/02/19 15:42 Pain Level 0 01/02/19 20:40 Comment 01/01/19 02:05 Intake & Output 01/03/19 01/04/19 01/04/19 23:59 11:59 23:59 Intake Total 282.3 / 453.8 211.5 / 211.5 Output Total 1800 / 3600 300 / 300 Balance -1517.7 / -3146.2 -88.5 / -88.5 Intake: IV 282.3 / 453.8 211.5 / 211.5 Output: Urine 1800 / 3600 300 / 300 Other: Urine Color Yellow Straw Urine Appearance Clear Clear Laboratory Results WBC 7.50 k/cumm (4.4-10.8) 01/02/19 06:30 RBC 3.61 m/cumm (4.50-6.00) L 01/02/19 06:30 Hgb 11.4 g/dL (13.5-17.5) L 01/02/19 06:30 Hct 34.0 % (40.0-50.0) L 01/02/19 06:30 MCV 94.2 fL (80-95) 01/02/19 06:30 MCH 31.6 pg (27.0-33.0) 01/02/19 06:30 MCHC 33.5 g/dL (32.0-36.0) 01/02/19 06:30 RDW 15.3 % (11.8-14.1) H 01/02/19 06:30 Plt Count 101 x1000/uL (130-400) L 01/02/19 06:30 MPV 9.5 fL (8.0-11.0) 01/02/19 06:30 Immature Gran % See Differential 01/02/19 06:30 82.0 01/02/19 06:30 2.0 % 01/02/19 06:30 8.0 01/02/19 06:30 Atypical Lymphs % 1 12/31/18 06:25 4.0 01/02/19 06:30 0.0 01/02/19 06:30 0.0 01/02/19 06:30 3.0 % 01/02/19 06:30 1.0 % 01/02/19 06:30 0 % 01/01/19 06:35 Absolute Neutrophils 6.30 k/cumm (1.2-6.7) 01/02/19 06:30 Absolute Lymphocytes 0.60 k/cumm (1.2-3.4) L 01/02/19 06:30 Absolute Monocytes 0.30 k/cumm (0.11-0.7) 01/02/19 06:30 Absolute Eosinophils 0.00 k/cumm (0.0-0.7) 01/02/19 06:30 Absolute Basophils 0.00 k/cumm (0.0-0.2) 01/02/19 06:30 Manual differential 01/02/19 06:30 RBC Morphology See below 01/02/19 06:30 Present 01/02/19 06:30 1+ 01/01/19 06:35 1+ 01/02/19 06:30 Sodium 137 mmol/L (136-145) 01/02/19 06:30 Potassium 3.7 mmol/L (3.5-5.1) 01/02/19 06:30 Chloride 103 mmol/L (98-107) 01/02/19 06:30 Carbon Dioxide 25.6 mmol/L (21.0-32.0) 01/02/19 06:30 8.4 mmol/L (3-11) 01/02/19 06:30 BUN 23 mg/dL (7-18) H 01/02/19 06:30 0.41 mg/dL (0.70-1.30) L 01/02/19 06:30 >= 60.00 (mL/min/1.73m2) 01/02/19 06:30 Glucose 170 mg/dL (70-100) H 01/02/19 06:30 1.0 mmol/l (0.6-1.4) 01/01/19 06:35 Calcium 7.9 mg/dL (8.5-10.1) L 01/02/19 06:30 Magnesium 2.1 mg/dL (1.8-2.4) 01/02/19 06:30 0.9 mg/dL (0.2-1.0) 12/30/18 06:36 AST 25 U/L (15-37) 12/30/18 06:36 ALT 41 U/L (12-78) 12/30/18 06:36 50 U/L (46-116) 12/30/18 06:36 198 U/L (39-308) 12/31/18 06:25 0.09 ng/mL (0.00-0.06) H* 12/30/18 06:36 4.8 g/dL (6.4-8.2) L 12/30/18 06:36 2.1 g/dL (3.4-5.0) L 12/30/18 06:36 125 U/L (73-393) 12/29/18 09:30 1.5 ng/mL 01/02/19 06:30 TSH 0.44 uIU/mL (0.358-3.74) 12/29/18 20:05 Yellow (Yellow) 12/30/18 22:35 Clear (Clear) 12/30/18 22:35 6.5 (5-8) 12/30/18 22:35 Ur Specific [place] 1.020 (1.005-1.025) 12/30/18 22:35 30 mg/dL (Negative) H 12/30/18 22:35 Trace mg/dL (Negative) H 12/30/18 22:35 Small (Negative) H 12/30/18 22:35 Negative (Negative) 12/30/18 22:35 Negative (Negative) 12/30/18 22:35 2.0 EU/dL (Up TO 0.2) H 12/30/18 22:35 Ur Leukocyte Esterase Negative (Negative) 12/30/18 22:35 5-10 (0-2) H 12/30/18 22:35 0-2 HPF (0-5) 12/30/18 22:35 Ur Epithelial Cells Few HPF (Negative) 12/30/18 22:35 Negative HPF (Negative) 12/30/18 22:35 Few HPF (Negative) 12/30/18 22:35 3-5 hyaline LPF (Negative) 12/30/18 22:35 Heavy (Negative) 12/30/18 22:35 Ur Culture Indicated? C&s done as ordered 12/30/18 22:35 250 mg/dL (Negative) H 12/30/18 22:35 Vancomycin Trough 14.9 ug/mL (10.0-20.0) 01/01/19 06:35 Phenytoin 10.4 ug/mL (10.0-20.0) 01/02/19 06:30
--- NOTE | 2019-01-04 15:17 | PGE_ITS ---
Date of Service Date of service: 01/04/19 Time of Service: 15:17 Assessment and Plan (1) Comfort measures only status: Current visit: Yes Status: Acute Mr. Arreola transitioned is on comfort measures only. He remains on an Ativan drip. He appears to be comfortable. Continue morphine for increased work of breathing. He does not appear to have seizure activity on exam. Contin ue antiepileptic medications as his has a fear of seeing him have seizures. Continue comfort measures. Subjective Interval history since last seen: Mr. Bajwa remains on comfort measures only. He continues on the Ativan drip. Nursing has been giving morphine for increased work of breathing. He is not responsive. His is in the room with him. He appears calm and comfortable. His is very pleased with the care that he is receiving. He has music playing. He continues on antiepileptic medication as his did not want to see him have seizures. Exam Narrative Exam Narrative: General: elderly male, face flushed, he is not responsive. Appears calm and comfortable, no visible seizure activity. HEENT: eyes closed, no furrowed brows or grimacing. Heart: regular rate and rhythm Lungs: Respirations appear even and unlabored, no apnea noted, lung sounds clear on anterior and lateral exam. GI: abdomen is soft, does not appear tender on palpation, nondistended Extremities: 1+ BLE edema, faint pedal pulses Objective Objective Clinical Data: Vital Signs Temperature 36.5 C 01/02/19 15:42 Temperature Source Temporal Artery Scan 01/02/19 15:42 Pulse 71 01/02/19 16:00 Pulse Rhythm Regular 12/31/18 08:02 Pulse 66 01/02/19 16:00 Respiratory Rate 20 01/02/19 16:00 Respiratory Effort 01/04/19 08:15 Respiratory Depth Shallow 01/04/19 08:15 Respiratory Pattern Normal 01/04/19 08:15 Blood Pressure 140/68 01/02/19 16:00 Blood Pressure Mean 87 01/02/19 16:00 Blood Pressure Position Left Lateral 01/02/19 15:42 Pulse Oximetry 99 01/02/19 16:00 Oxygen Delivery Method Room Air 01/02/19 15:42 Oxygen Flow Rate 0 01/02/19 15:42 Pain Level 0 01/02/19 20:40 Comment 01/01/19 02:05 Intake & Output 01/03/19 01/04/19 01/04/19 23:59 11:59 23:59 Intake Total 282.3 / 453.8 211.5 / 211.5 Output Total 1800 / 3600 300 / 775 475 / 775 Balance -1517.7 / -3146.2 -88.5 / -563.5 -475 / -563.5 Intake: IV 282.3 / 453.8 211.5 / 211.5 Output: Urine 1800 / 3600 300 / 775 475 / 775 Other: Urine Color Yellow Straw Yellow Urine Appearance Clear Clear Clear Laboratory Results WBC 7.50 k/cumm (4.4-10.8) 01/02/19 06:30 RBC 3.61 m/cumm (4.50-6.00) L 01/02/19 06:30 Hgb 11.4 g/dL (13.5-17.5) L 01/02/19 06:30 Hct 34.0 % (40.0-50.0) L 01/02/19 06:30 MCV 94.2 fL (80-95) 01/02/19 06:30 MCH 31.6 pg (27.0-33.0) 01/02/19 06:30 MCHC 33.5 g/dL (32.0-36.0) 01/02/19 06:30 RDW 15.3 % (11.8-14.1) H 01/02/19 06:30 Plt Count 101 x1000/uL (130-400) L 01/02/19 06:30 MPV 9.5 fL (8.0-11.0) 01/02/19 06:30 Immature Gran % See Differential 01/02/19 06:30 82.0 01/02/19 06:30 2.0 % 01/02/19 06:30 8.0 01/02/19 06:30 Atypical Lymphs % 1 12/31/18 06:25 4.0 01/02/19 06:30 0.0 01/02/19 06:30 0.0 01/02/19 06:30 3.0 % 01/02/19 06:30 1.0 % 01/02/19 06:30 0 % 01/01/19 06:35 Absolute Neutrophils 6.30 k/cumm (1.2-6.7) 01/02/19 06:30 Absolute Lymphocytes 0.60 k/cumm (1.2-3.4) L 01/02/19 06:30 Absolute Monocytes 0.30 k/cumm (0.11-0.7) 01/02/19 06:30 Absolute Eosinophils 0.00 k/cumm (0.0-0.7) 01/02/19 06:30 Absolute Basophils 0.00 k/cumm (0.0-0.2) 01/02/19 06:30 Manual differential 01/02/19 06:30 RBC Morphology See below 01/02/19 06:30 Present 01/02/19 06:30 1+ 01/01/19 06:35 1+ 01/02/19 06:30 Sodium 137 mmol/L (136-145) 01/02/19 06:30 Potassium 3.7 mmol/L (3.5-5.1) 01/02/19 06:30 Chloride 103 mmol/L (98-107) 01/02/19 06:30 Carbon Dioxide 25.6 mmol/L (21.0-32.0) 01/02/19 06:30 8.4 mmol/L (3-11) 01/02/19 06:30 BUN 23 mg/dL (7-18) H 01/02/19 06:30 0.41 mg/dL (0.70-1.30) L 01/02/19 06:30 >= 60.00 (mL/min/1.73m2) 01/02/19 06:30 Glucose 170 mg/dL (70-100) H 01/02/19 06:30 1.0 mmol/l (0.6-1.4) 01/01/19 06:35 Calcium 7.9 mg/dL (8.5-10.1) L 01/02/19 06:30 Magnesium 2.1 mg/dL (1.8-2.4) 01/02/19 06:30 0.9 mg/dL (0.2-1.0) 12/30/18 06:36 AST 25 U/L (15-37) 12/30/18 06:36 ALT 41 U/L (12-78) 12/30/18 06:36 50 U/L (46-116) 12/30/18 06:36 198 U/L (39-308) 12/31/18 06:25 0.09 ng/mL (0.00-0.06) H* 12/30/18 06:36 4.8 g/dL (6.4-8.2) L 12/30/18 06:36 2.1 g/dL (3.4-5.0) L 12/30/18 06:36 125 U/L (73-393) 12/29/18 09:30 1.5 ng/mL 01/02/19 06:30 TSH 0.44 uIU/mL (0.358-3.74) 12/29/18 20:05 Yellow (Yellow) 12/30/18 22:35 Clear (Clear) 12/30/18 22:35 6.5 (5-8) 12/30/18 22:35 Ur Specific [place] 1.020 (1.005-1.025) 12/30/18 22:35 30 mg/dL (Negative) H 12/30/18 22:35 Trace mg/dL (Negative) H 12/30/18 22:35 Small (Negative) H 12/30/18 22:35 Negative (Negative) 12/30/18 22:35 Negative (Negative) 12/30/18 22:35 2.0 EU/dL (Up TO 0.2) H 12/30/18 22:35 Ur Leukocyte Esterase Negative (Negative) 12/30/18 22:35 5-10 (0-2) H 12/30/18 22:35 0-2 HPF (0-5) 12/30/18 22:35 Ur Epithelial Cells Few HPF (Negative) 12/30/18 22:35 Negative HPF (Negative) 12/30/18 22:35 Few HPF (Negative) 12/30/18 22:35 3-5 hyaline LPF (Negative) 12/30/18 22:35 Heavy (Negative) 12/30/18 22:35 Ur Culture Indicated? C&s done as ordered 12/30/18 22:35 250 mg/dL (Negative) H 12/30/18 22:35 Vancomycin Trough 14.9 ug/mL (10.0-20.0) 01/01/19 06:35 Phenytoin 10.4 ug/mL (10.0-20.0) 01/02/19 06:30
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
[2019-01-05] MEDS: Normal Saline 500 ML 15 ML IV (00:54)
[2019-01-05] MEDS: Dexamethasone 4 MG/ML VIAL 8 MG IVP (09:26)
[2019-01-05] MEDS: ACETAMINOPHEN 1,000 MG/100 ML BTL 400 MG IVPB (11:57)
--- NOTE | 2019-01-05 12:00 | DSE_ITS ---
Date of service: 01/05/19 Time of Service: 12:01 DS: Diagnosis Discharge Diagnosis (1) Comfort measures only status: Status: Acute Discharge Plan Disposition Patient Disposition: [facility] SWING BED LEVEL 1 Condition: Poor Discharge Details Chief Complaint: GenMedical Reason For Visit: ACS, GLIOBLASTOMA W/AMS,SEIZURE,LEFT HEMIPARESIS Admit Date/Time: 12/29/18 17:36 Admit Provider: Eric Whitfield Attending Provider: Eric Whitfield Primary Care Provider: Riaz Penaloza ED Provider: [facility] Course Hospital Course: This is a 78-year-old gentleman with a 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 At home the evening prior to admission the patient had diffuse tremors and seizure-like activity with increased left-sided weakness compared to his baseline and more difficulty swallowing along with confusion with altered mental status. He would have lucid conversations at times and at times wander in conversation with no true expressive or receptive a aphasia. During my conversation with him, while interviewing him and his he would answer questions appropriately with his eyes closed and with simple answers. The states that when he does have seizures he has retrosternal discomfort which is like heartburn and a pressure sensation under his lower sternum. He had this with his seizure activity last night with associated nausea. He also has increased problems swallowing presently. In the ED his evaluation revealed elevated troponins but no acute EKG changes. He was decided he was not a candidate for catheterization or anticoagulation because of his recent surgery and his tumor with his CODE STATUS changed to DNR/DNI and discussion of palliative care with hospice evaluation in the morning. Overnight he will be observed and kept comfortable with her troponins trended until plateaued and c ardiac monitoring. If he remains stable cardiac monitoring can be discontinued while continuing evaluation of his change in status. His oral meds will be continued as best he can swallow with modified diet. During the hospital course patient met with palliative care and was transitioned to CAPITAL EQUIPMENT SPECIALIST. He is on drips at this time for comfort to prevent seizures ativan, keppra and dexamethasone. He is unresponsive and his is by his side. We will continue his medications. He is being transferred to swing bed level 1 on CAPITAL EQUIPMENT SPECIALIST. Home Meds and New Rx's Prescriptions: Discontinued cilostazol 100 mg tablet 100 mg PO BID RF: 0 aspirin 81 mg tablet,chewable 81 mg PO DAILY RF: 0 potassium chloride 40 mEq/15 mL Liquid 10 meq PO DAILY RF: 0 furosemide 40 mg Tablet 40 mg PO DAILY RF: 0 acetaminophen 325 mg Tablet 650 mg PO Q4H PRNRF: 0 dexamethasone 2 mg Tablet 2 mg PO HS RF: 0 dexamethasone 4 mg Tablet 4 mg PO DAILY AM RF: 0 levetiracetam 500 mg Tablet 1,500 mg PO BID RF: 0 escitalopram oxalate [Lexapro] 10 mg Tablet 10 mg PO DAILY RF: 0 lisinopril-hydrochlorothiazide [Zestoretic] 10-12.5 mg Tablet 1 tab PO DAILY RF: 0 Discharge Instructions Activity:: Activity as Tolerated Equipment/Supplies:: No Equipment Needed Diet:: As Tolerated Discharge Orders Discharge Orders: Discharge Order (Routine); Ordered 01/05/19 Ordered By: Ely Jean Baptiste Exam Narrative Exam Narrative: On [employer]ITAL EQUIPMENT SPECIALIST, currently unresponsive. Lung sounds clear. Continue supportive care. DS: Data Vitals/I&O Vitals and I&O: Vital Signs Temperature 36.5 C 01/02/19 15:42 Temperature Source Temporal Artery Scan 01/02/19 15:42 Pulse 71 01/02/19 16:00 Pulse Rhythm Regular 12/31/18 08:02 Pulse 66 01/02/19 16:00 Respiratory Rate 20 01/02/19 16:00 Respiratory Effort 01/04/19 20:00 Respiratory Depth Shallow 01/04/19 20:00 Respiratory Pattern Normal 01/04/19 20:00 Blood Pressure 140/68 01/02/19 16:00 Blood Pressure Mean 87 01/02/19 16:00 Blood Pressure Position Left Lateral 01/02/19 15:42 Pulse Oximetry 99 01/02/19 16:00 Oxygen Delivery Method Room Air 01/02/19 15:42 Oxygen Flow Rate 0 01/02/19 15:42 Pain Level 0 01/02/19 20:40 Comment 01/01/19 02:05 Intake & Output 01/04/19 01/05/19 01/05/19 23:59 11:59 23:59 Intake Total 117.5 / 329.0 618.15 / 618.15 Output Total 1025 / 1325 250 / 250 Balance -907.5 / -996.0 368.15 / 368.15 Intake: IV 117.5 / 329.0 618.15 / 618.15 Output: Urine 1025 / 1325 250 / 250 Other: Urine Color Light [place] Yellow Urine Appearance Clear Clear PFSH Medical History Diplopia (Acute) Dysphagia (Acute) GBM (glioblastoma multiforme) (Chronic ~11/28/18) Goals of care, counseling/discussion (Acute) HTN (hypertension) (Chronic) 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 Sister No problems noted. Brother No problems noted. Brother No problems noted. Brother No problems noted. Son No problems noted. Son No problems noted. Son No problems noted. Social History Smoking/Tobacco Use Status: Current every day Tobacco Type: cigarettes Second Hand Exposure: Yes Alcohol Intake: current Alcohol Intake frequency: holidays/special occasions only Alcohol type: hard liquor Drug use: Never Substance use type: does not use Details: Pt is not only smoking a lot of cigeretts but is chewing nicodine gum. 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 Pets and animals: Yes Pets and animals: cat(s) What is your relationship status?: How often do you talk on the phone with friends or family?: once per week How often do you get together with friends or relatives?: three or more times per week Panel score (0-1 are the most socially isolated patients): 2 What type of physical activity do you participate in: assisted ambulation Duration: 15-30 minutes/day Frequency: 5-6 times per week Macrina/Voodoo: Oriental Orthodox Special macrina needs: No Seatbelt use: always Do you feel safe at home: Yes Do you feel safe in your relationship?: Yes Additional Social history: was walking up until this admission for second episode of generalized seizures he said his primary goal was to go home; his sons have made his home handicapped accessible. not sure if he will regain enough strength to be able to return home.
--- NOTE | 2019-01-05 14:11 | NUR.NOTE ---
Pt changed to swing status at 1219, remains stable and in room 214 with family at bedside.
--- NOTE | 2019-01-05 17:36 | PDOC.CMDIS ---
LACE Index Scoring Tool - Questions: Length of Stay (in days): 7 - 13 Acuity (Admit via E.D.?): Yes E.D. Visits: 2 - Answers: Total Score: 10 Risk of Readmission: High Risk Care Management Discharge Reason for Hospitalization: ACS, Glioblastoma w/AMS, Seizure, Left Hemiparesis Discharge Plan: Swing Bed for Comfort care only. Patient/Family Education Needs: End of life care.
== END 2019-01-05 12:19 | disposition swing bed (61) | DRG 54 ==
LOC: ER 17:58 → ICU 12-30 00:32 → MS 01-05 12:04 → ICU 01-08 10:57
PROVIDERS: Internal Medicine; Nurse Practitioner Family; Admitting Provider Family Medicine; Emergency Provider Physician Assistant; PCP Family Medicine; Visit Provider Internal Medicine
DX: C71.9 Malignant neoplasm of brain, unspecified (principal); J69.0 Pneumonitis due to inhalation of food and vomit; A41.9 Sepsis, unspecified organism; R65.21 Severe sepsis with septic shock; G81.94 Hemiplegia, unspecified affecting left nondominant side; R47.01 Aphasia; I24.9 Acute ischemic heart disease, unspecified; G93.49 Other encephalopathy; E27.40 Unspecified adrenocortical insufficiency; G40.801 Other epilepsy, not intractable, with status epilepticus; I47.1 Supraventricular tachycardia; G40.409 Other generalized epilepsy and epileptic syndromes, not intractable, without status epilepticus; Z51.5 Encounter for palliative care; Z66 Do not resuscitate; F17.210 Nicotine dependence, cigarettes, uncomplicated; I10 Essential (primary) hypertension; R74.8 Abnormal levels of other serum enzymes; R73.9 Hyperglycemia, unspecified; T38.0X5A Adverse effect of glucocorticoids and synthetic analogues, initial encounter; R09.02 Hypoxemia; R13.13 Dysphagia, pharyngeal phase; R47.1 Dysarthria and anarthria; R49.0 Dysphonia; R60.0 Localized edema; Z71.89 Other specified counseling; H53.2 Diplopia; I73.9 Peripheral vascular disease, unspecified; Z71.3 Dietary counseling and surveillance; Z78.1 Physical restraint status
CPT/HCPCS: 36415; 36556; 36591; 36592; 51702; 71045; 80048; 80053; 82550; 83690; 84145; 85027; 87040; 87081; 92610; 93005; 93306; 95953; 96361; 96365; 96375; 99223; 99231; 99232; 99233; 99239; 99255; 99285; 99291; 70450; 71046; 80185; 80202; 81003; 81015; 83605; 83735; 84443; 84484; 85025; 87086; 93010; 93970; 99284; J0131; J0696; J0713; J1100; J1720; J1941; J1953; J1956; J2060; J2405; J2560; J3370; J3475; J3480; J3490; J7613; J8540

== ENCOUNTER → 2018-12-31 08:02 | Outpatient (BNVA) | payer MEDICARE, BC, SELFPAY | PROVIDERS: PCP Family Medicine; Visit Provider Psychiatry & Neurology Neurology | DX: R69 Illness, unspecified (principal) ==

== ENCOUNTER 2019-01-05 12:19 | Inpatient (IN) | payer MEDICARE, BC, SELFPAY ==
--- NOTE | 2019-01-05 12:20 | W.PM.HP.N ---
Date of service: 01/05/19 Time of Service: 12:20 Assessment and Plan (1) Comfort measures only status: Start date: 01/05/19 Start time: 12:25 Current visit: Yes Status: Acute Patient made TELECOM SALES CONSULTANT on Monday. Transitioning to swing bed at this time. Unresponsive with family at bedside. Continue to support family and make patient comfort. 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 His family met with palliative care and have decided to make him comfort measures only. He does have seizures so he will be on keppra, ativan drip and dexamethasone IV while TELECOM SALES CONSULTANT. At this time he is unresponsive. Family is at the bedside. Review of Systems Review of Systems All systems reviewed & are unremarkable except as noted in HPI and below Constitutional Reports as per HPI Eyes Reports as per HPI ENT Reports as per HPI Cardiovascular Reports as per HPI Respiratory Reports as per HPI Gastrointestinal Reports as per HPI Genitourinary Reports as per HPI Musculoskeletal Reports as per HPI Integumentary/Breasts Reports as per HPI Neurologic Reports as per HPI Endocrine Reports as per HPI Hematologic/Lymphatic Reports as per HPI Allergic/Immunologic Reports as per HPI PFSH Social History Smoking/Tobacco Use Status: Current every day Tobacco Type: cigarettes Second Hand Exposure: Yes Alcohol Intake: current Alcohol Intake frequency: holidays/special occasions only Alcohol type: hard liquor Drug use: Never Substance use type: does not use Details: Pt is not only smoking a lot of cigeretts but is chewing nicodine gum. 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 Pets and animals: Yes Pets and animals: cat(s) What is your relationship status?: How often do you talk on the phone with friends or family?: once per week How often do you get together with friends or relatives?: three or more times per week Panel score (0-1 are the most socially isolated patients): 2 What type of physical activity do you participate in: assisted ambulation Duration: 15-30 minutes/day Frequency: 5-6 times per week Macrina/Scientologist: Evangelical Special macrina needs: No Seatbelt use: always Do you feel safe at home: Yes Do you feel safe in your relationship?: Yes Additional Social history: was walking up until this admission for second episode of generalized seizures he said his primary goal was to go home; his sons have made his home handicapped accessible. not sure if he will regain enough strength to be able to return home. Meds Allergies Allergy/AdvReac Type Severity Reaction Status Date / Time venom-honey bee Allergy Severe Swelling Unverified 12/29/18 09:16 [bee venom (honey bee)] Penicillins Allergy Unverified 12/29/18 09:16 Exam Narrative Exam Narrative: TELECOM SALES CONSULTANT, unresponsive with snoring respirations. Scolpamine patch in place. Continue to monitor status.
--- NOTE | 2019-01-05 14:16 | NUR.NOTE ---
Nursing Note: Patient admitted to swing status at 1219, remains in room 214 in stable condition with family at bedside.
--- NOTE | 2019-01-05 14:47 | PHARADMIT ---
Addendum entered by Hossein Larsen III 01/10/19 11:30: MANAGER OF LOSS PREVENTION OPERATIONS Patient MD notes that patient is beginning to decline. Continue current therapy. Addendum entered by Alka Potter 01/07/19 14:30: Pt. is MANAGER OF LOSS PREVENTION OPERATIONS no VS or labs no med changes so far today Original Note: Admission Pharmacy Clinical Review MANAGER OF LOSS PREVENTION OPERATIONS and seizure control (due to Glioblastoma w/ AMS SWING BED Below is the Pharmacy Clinical Intervention for the acute stay: DELMAR ZAMORA Male : 1940 Emr# [id number] 12/30/18 11:24 - Pharmacy Review by Victoria Hair Acc Num: [id number] : 1940 Patient Age: 78 Addendum entered by Hossein Larsen [employer] 01/04/19 10:56: Delmar has been transitioned to MANAGER OF LOSS PREVENTION OPERATIONS. Continuing seizure meds (Fos-phenytoin & Keppra) has Ativan drip with Morphine bolus prn. Patient is non-responsive Addendum entered by Janet Aguillon 01/01/19 09:49: Pharmacy Note Subjective EEG and MRI scheduled for today Objective FS 156, vanco trough 14.9, Bc no growth 24 hours, UC no growth 48 hours Assessment no changes to vanco dose. Md notes improvements. dexamethasone dose increased yesterday. neurology recommends adding depakote if more seizures Plan cont following culture results, vanco dosing Addendum entered by Hossein Larsen III 12/31/18 14:23: Pharmacy Note Subjective Patient had speech evaluation today, very dyphasic, NPO, except for sips. Surgery placed triple lumen central line yesterday. MD suspects aspiration pneumonia. Patient experiencing seizures post-op brain surgery. Objective VS-OK BP-130/56 K+3.2 Mag-1.4, H&H-11.4/33.1 WBC-5.02 Wgt- 85.5 kg no BM Assessment Vancomycin & Levaquin IV continue. Magnesium,Potassium bolus given, Keppra IV for seizures. Off pressors now Plan Hospice consult, plan to return to [facility] vs MANAGER OF LOSS PREVENTION OPERATIONS Original Note: Admission Pharmacy Clinical Review ACS, GLIOBLASTOMA W/AMS, SEIZURE (From [facility]) Code Status DNR/DNI Current Weight 85.5 kg Renally Cleared and Narrow Therapeutic Index Meds CrCl~68ml/min QTc Value / Action Taken QTC 444 BP Control, Fever BP 115/59, Afebrile Electrolytes reviewed Na++ 133, K+ 3.6, Mag 1.8 DVT Prophylaxis Cilostazol (Antiplatelet agent only), ASA 81mg Opiate Usage / Scheduled Bowel Regimen Ordered Plt/SCr for Heparin / Enoxaparin Plt 114 SCr 0.42 INR for Warfarin H/H stable, WBC/Bands H/H 12.2/35.3 WBC 6.22 Antibiotic appropriateness Cultures and Sensitivities MRSA nare pending Surgical ABX d/c within 24 hr DM control / Insulin Dosing BG 189 (Novolog scale) Heart Failure (Check EF%) (GM's, B-Block, Diuretics) IV to PO Switch Home Meds Reviewed Home Meds Not Ordered Comments Keppra dose is 1500mg BID (entered as liquid-not sure if pt has difficulty swallowing?) Many meds dc'd....family meeting, Palliative care consult placed, Neurology consult ordered Initialized on 12/30/18 11:24 - END OF NOTE
[2019-01-05] MEDS: Scopolamine 1 MG/3 DAYS PATCH TD (16:09)
[2019-01-05] MEDS: Patch Removal 1 EACH TP (16:11)
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
--- NOTE | 2019-01-05 17:39 | CM.SWINGPC ---
Swingbed Plan of Care Plan of care: SWING BED PROGRAM ACTIVITIES/DISCHARGE PLAN OF CARE ACTIVITIES PLAN Date: 01/05/19 Identified Need: Calm, Soothing atmosphere Intervention/Plan: Provide the palliative care/hospice cart Initials CS DISCHARGE PLAN Date: Identified Need: Intervention/Plan: Initials
[2019-01-05] MEDS: MORPHine 2 MG/ML SYR IV/SC ×2 (18:27→21:07)
[2019-01-05] MEDS: Normal Saline Flush 10 ML SYR IVP ×2 (18:28→20:43)
[2019-01-05] MEDS: Dexamethasone 4 MG/ML VIAL 8 MG IVP (20:43)
[2019-01-06] MEDS: MORPHine 2 MG/ML SYR IV/SC ×7 (00:12→21:54)
[2019-01-06] MEDS: Normal Saline Flush 10 ML SYR IVP ×7 (00:13→21:54)
[2019-01-06] MEDS: Glycopyrrolate 0.2 MG/1 ML VIAL IVP ×7 (04:40→20:49)
[2019-01-06] MEDS: Normal Saline 500 ML 10 ML IV (09:10)
[2019-01-06] MEDS: Dexamethasone 4 MG/ML VIAL 8 MG IVP ×2 (09:42→20:31)
[2019-01-06] MEDS: Hyoscyamine 0.125 MG SL/ORAL/CHEW SL ×2 (10:45→14:31)
[2019-01-07] MEDS: MORPHine 2 MG/ML SYR IV/SC ×8 (00:35→22:13)
[2019-01-07] MEDS: Glycopyrrolate 0.2 MG/1 ML VIAL IVP ×4 (03:38→22:12)
[2019-01-07] MEDS: Normal Saline Flush 10 ML SYR IVP ×5 (06:04→20:12)
[2019-01-07] MEDS: Dexamethasone 4 MG/ML VIAL 8 MG IVP ×2 (08:09→20:12)
[2019-01-07] MEDS: Hyoscyamine 0.125 MG SL/ORAL/CHEW SL (22:24)
[2019-01-08] MEDS: Glycopyrrolate 0.2 MG/1 ML VIAL IVP ×6 (00:19→20:11)
[2019-01-08] MEDS: MORPHine 2 MG/ML SYR IV/SC ×4 (00:19→22:00)
[2019-01-08] MEDS: Hyoscyamine 0.125 MG SL/ORAL/CHEW SL ×4 (02:14→21:59)
[2019-01-08] MEDS: Normal Saline Flush 10 ML SYR IVP ×7 (02:15→21:58)
[2019-01-08] MEDS: Dexamethasone 4 MG/ML VIAL 8 MG IVP ×2 (08:26→20:11)
[2019-01-08] MEDS: Acetaminophen 650 MG SUPP PR (10:54)
--- NOTE | 2019-01-08 13:19 | CMPROGNOTE_ITS ---
- If Service Date Differs Date of service: 01/08/19 Time of Service: 13:20 Care Management Progress Note S/O:Nico remains on comfort measures. He is resting quietly and appears to be sleeping peacefully. Elsy states she is doing well. Friends came to visit and took her out to lunch.She has been staying with Nico for long periods of time but also goes home at night to rest. She expressed appreciation for all of the care and support she has received from staff. P: Nico is on comfort care. He will remain at [facility] receiving end of life care. will continue to provide support to patient and family.
--- NOTE | 2019-01-08 13:49 | NUR.NOTE ---
Nursing Note:pT has open area above rectum, SUBHA Ye notified, and Dahlia is being applied.
[2019-01-08] MEDS: Scopolamine 1 MG/3 DAYS PATCH TD (15:40)
[2019-01-08] MEDS: Patch Removal 1 EACH TP (15:54)
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
[2019-01-09] MEDS: Hyoscyamine 0.125 MG SL/ORAL/CHEW SL ×4 (02:00→13:09)
[2019-01-09] MEDS: Glycopyrrolate 0.2 MG/1 ML VIAL IVP ×9 (02:26→23:26)
[2019-01-09] MEDS: MORPHine 2 MG/ML SYR IV/SC ×9 (02:48→23:33)
[2019-01-09] MEDS: Normal Saline 500 ML IV (07:43)
[2019-01-09] MEDS: Normal Saline Flush 10 ML SYR IVP ×4 (07:56→23:26)
[2019-01-09] MEDS: Dexamethasone 4 MG/ML VIAL 8 MG IVP ×2 (08:09→19:52)
[2019-01-10] MEDS: Glycopyrrolate 0.2 MG/1 ML VIAL IVP ×2 (04:16→06:56)
[2019-01-10] MEDS: MORPHine 2 MG/ML SYR IV/SC ×2 (04:17→06:56)
[2019-01-10] MEDS: Dexamethasone 4 MG/ML VIAL 8 MG IVP (08:54)
--- NOTE | 2019-01-10 17:38 | W.PM.DDS ---
Date of service: 01/10/19 Time of Service: 17:38 Discharge Sum: Diag Contributing Factors (1) Comfort measures only status: Discharge Sum: Summary Date and Time Admission Date: 12/29/1906/20/19 12:19
== END 2019-01-10 10:11 | disposition expired | DRG 54 ==
PROVIDERS: Admitting Provider Nurse Practitioner Family; PCP Family Medicine; Visit Provider Internal Medicine
DX: C71.9 Malignant neoplasm of brain, unspecified (principal); R40.20 Unspecified coma; G40.801 Other epilepsy, not intractable, with status epilepticus; Z51.5 Encounter for palliative care; R26.2 Difficulty in walking, not elsewhere classified; R11.0 Nausea; I10 Essential (primary) hypertension; Z66 Do not resuscitate
CPT/HCPCS: 99223; 99239; 99305; 99316; J1100; J1953; J2060; J2270; J3490